=== PATIENT | male | born 1975 | race Caucasian/White ===

== ENCOUNTER 2016-11-10 22:49 | Emergency (ER) | payer OTHER ==
[~2016-11-10 22:49] MED LIST: /QUET10TA PO; AMAN10CA PO; AMOX875T2 PO; Abilify PO; BACT800T5 PO; BUPRPOW2 SL; CELE10TA PO; CHLO25CA PO; CLIN300C2 PO; DOXY100C PO; FLUO20CA9 PO; FLUO40CA PO; HYDR-4274 PO; HYDRO50TAB PO; KLON2TAB PO; NEUR100C PO; NEUR300C PO; OLAN5TAB PO; PERCOCET PO; PROZ10CA7 PO; PROZ20CA11 PO; QUET1TAB7 PO; QUET1TAB8 PO; QUET5TAB PO; RISP3TAB18 PO; SERO1TAB PO; SERO1TAB2 PO; SERO400T PO; TRAZ100T4 PO; TRAZ300T2 PO; TYLE325T5 PO; VENL75CA PO; VIST50CA PO
[2016-11-10] MEDS ORDERED: NAPROXEN 250 MG TAB As Ordered ONE (23:29)
[2016-11-10] MEDS ORDERED: QUEtiapine FUMARATE 100 MG TAB As Ordered ONE (23:30)
--- NOTE | 2016-11-10 23:38 | EDDOCDS ---
Physician Documentation [facility] Name: Akbar Singh Age: 40 yrs Sex: Male : 1975 Arrival Date: 11/10/2016 Time: 22:49 Bed 30 Private MD: [facility] - Adults Disposition: 11/10/16 23:28 Discharged to Home/Self Care. Impression: Patient's other noncompliance with medication regimen, Disorder of the skin and subcutaneous tissue, unspecified - scratching and picking. - Condition is Stable. - Discharge Instructions: Skin Tear Care, [id number]. - Prescriptions for Seroquel XR 400 mg Oral tablet extended release 24 hr - take 1 tablet by ORAL route once daily; 10 tablet. Naprosyn 500 mg Oral Tablet - take 1 tablet by ORAL route 2 times per day take with food; 30 tablet. - Medication Reconciliation, Local Pharmacy Hours form. - Follow up: [facility] - Adults; When: Call to arrange an appointment; Reason: Continuance of care. - Problem is an ongoing problem. - Symptoms are unchanged. Historical: - Allergies: Haldol (locked jaw); Nortriptyline (locked jaw); - Home Meds: 1. Seroquel 400 mg Oral tab 1 tab once daily hasn't taken in a few days - PMHx: Depression; Hepatitis C; Substance Abuse; - PSHx: none; - Social history: Smoking status: Patient uses tobacco products, current every day smoker. No barriers to communication noted, The patient speaks fluent Malian. - Family history: Not pertinent. - : The pt / caregiver states he / she is not on anticoagulants. Home medication list is obtained from the patient, Unable to Verify Home Med List with the patient / caregiver. - Exposure Risk Screening:: None identified. Vital Signs: 11/10 22:54 BP 134 / 82; Pulse 104; Resp 18 S; Temp 96.6(O); Pulse Ox 96% on R/A; Weight 72.57 kg / gr2 159.99 lbs (R); Height 5 ft. 7 in. (170.18 cm) (R); Pain 2/10; 22:54 Body Mass Index 25.06 (72.57 kg, 170.18 cm) gr2 MDM: 23:21 SEROquel 400 mg PO once ordered. ke 23:21 Naproxen 500 mg PO once; administer with food or milk ordered. ke Administered Medications: 23:35 Drug: SEROquel 400 mg Route: PO; deejay 23:35 Drug: Naproxen 500 mg [naproxen 250 mg tablet (2 tabs)] Route: PO; deejay Signatures: Jarrett Krueger, REAL ESTATE OFFICER REAL ESTATE OFFICER Yong Lewis RN RN Milvia Higgins RN RN ms18 MTDD
--- NOTE | 2016-11-10 23:38 | EDDOCDS ---
Nurse's Notes [facility] Name: Akbar Singh Age: 40 yrs Sex: Male : 1975 Arrival Date: 11/10/2016 Time: 22:49 Bed 30 Private MD: [facility] - Adults Diagnosis: Patient's other noncompliance with medication regimen;Disorder of the skin and subcutaneous tissue, unspecified-scratching and picking Presentation: 11/10 23:02 Presenting complaint: Patient states: that he has "things" all over himself, pt states ms18 that it is infection. Pt states that he is out of his psych meds as well. Adult Sepsis Screening: The patient does not have new or worsening altered mentation. Patient's respiratory rate is less than 22. Systolic blood pressure is greater than 100. Patient has a qSOFA score of 0- Negative Sepsis Screen. Suicide/Homicide risk assessment- the patient denies having any suicidal and/or homicidal ideations and does not present with any other emotional, behavioral or mental health complaints. Status: Patient is not a financial services representative or dependent. Transition of care: patient was not received from another setting of care. 23:02 Method Of Arrival: Walkin/Carried/Asstd ms18 23:07 Acuity: CHACHO Level 3 ms18 Triage Assessment: 23:04 General: Appears in no apparent distress, uncomfortable, unkempt, Behavior is ms18 cooperative, flat. Pain: Location: head, back and neck Pain currently is 10 out of 10 on a pain scale. HIV screening NA for this visit Offered previously. Neurological: Level of Consciousness is awake, alert, obeys commands. Respiratory: Airway is patent Respiratory effort is even, unlabored. Derm: Skin is pink, warm & dry. Historical: - Allergies: Haldol (locked jaw); Nortriptyline (locked jaw); - Home Meds: 1. Seroquel 400 mg Oral tab 1 tab once daily hasn't taken in a few days - PMHx: Depression; Hepatitis C; Substance Abuse; - PSHx: none; - Social history: Smoking status: Patient uses tobacco products, current every day smoker. No barriers to communication noted, The patient speaks fluent Swedish. - Family history: Not pertinent. - : The pt / caregiver states he / she is not on anticoagulants. Home medication list is obtained from the patient, Unable to Verify Home Med List with the patient / caregiver. - Exposure Risk Screening:: None identified. Screenin:35 Screening information is obtained from the patient. Fall risk: No risks identified. jmb Assistance ADL's: requires no assistance with activities of daily living. Abuse/DV Screen: The patient / caregiver reports he/she is: not in a situation that causes fear, pain or injury. Nutritional screening: No deficits noted. Advance Directives: Currently, there is no health care proxy. There is no active DNR order. There is no living will. There is no Power of Record Changer Tester. home support is adequate. Assessment: 23:35 General: Patient instructed on discharge instructions. Patient asked if there were any jmb questions regarding discharge, patient stated no.; Patient signed discharge instructions. Patient discharged in stable condition. . Vital Signs: 22:54 BP 134 / 82; Pulse 104; Resp 18 S; Temp 96.6(O); Pulse Ox 96% on R/A; Weight 72.57 kg gr2 (R); Height 5 ft. 7 in. (170.18 cm) (R); Pain 2/10; 22:54 Body Mass Index 25.06 (72.57 kg, 170.18 cm) gr2 Vitals: 22:54 Log In Time: November 10, 2016 at 22:54. gr2 ED Course: 22:53 Patient visited by Klever Sotelo. gr2 22:53 Patient moved to Waiting gr2 22:54 [facility] is Private Physician. gr2 22:55 Patient visited by Klever Sotelo. gr2 22:55 Patient moved to Pre RCE gr2 23:07 Triage Initiated ms18 23:08 Patient moved to 30 ms18 23:14 [facility] ke 23:14 Patient visited by Jarrett Krueger FNP. ke 23:14 Patient visited by Jarrett Krueger FNP. ke 23:27 [facility] is Referral Physician. ke 23:35 The patient / caregiver is instructed regarding the plan of care and ED course. jmb 23:35 No IV's were initiated during this patient's visit. No procedures done that require jmb assistance. Administered Medications: 23:35 Drug: SEROquel 400 mg Route: PO; deejay 23:35 Drug: Naproxen 500 mg [naproxen 250 mg tablet (2 tabs)] Route: PO; deejay Order Results: There are currently no results for this order. Outcome: 23:28 Discharge ordered by Provider. therese 23:35 Discharge Assessment: Patient awake, alert and oriented x 3. No cognitive and/or jmb functional deficits noted. Patient verbalized understanding of disposition instructions. Patient awake and alert. obeys commands, Oriented to person, place and time. Patient verbalized understanding of disposition instructions. Patient has no functional deficits. patient administered narcotics - no. The following High Risk Discharge criteria are identified: None. Discharged to home ambulatory. Condition: stable. Discharge instructions given to patient, Instructed on discharge instructions, follow up and referral plans. medication usage, Demonstrated understanding of instructions, medications, Pt was receptive of discharge instructions/ teaching. Prescriptions given X 2. No special radiology studies were completed. Property sent home with patient. 23:36 Patient left the ED. deejay Signatures: Jarrett Krueger, Klever Rider gr2 Yong Ruiz,RN RN Milvia Higgins RN RN ms18 JAI
--- NOTE | 2016-11-13 00:38 | EDDOCDS ---
Physician Documentation [facility] Name: Akbar Singh Age: 40 yrs Sex: Male : 1975 Arrival Date: 11/10/2016 Time: 22:49 Bed 30 Private MD: [facility] - Adults Disposition: 11/10/16 23:28 Discharged to Home/Self Care. Impression: Patient's other noncompliance with medication regimen, Disorder of the skin and subcutaneous tissue, unspecified - scratching and picking. - Condition is Stable. - Discharge Instructions: Skin Tear Care, [id number]. - Prescriptions for Seroquel XR 400 mg Oral tablet extended release 24 hr - take 1 tablet by ORAL route once daily; 10 tablet. Naprosyn 500 mg Oral Tablet - take 1 tablet by ORAL route 2 times per day take with food; 30 tablet. - Medication Reconciliation, Local Pharmacy Hours form. - Follow up: [facility] - Adults; When: Call to arrange an appointment; Reason: Continuance of care. - Problem is an ongoing problem. - Symptoms are unchanged. Historical: - Allergies: Haldol (locked jaw); Nortriptyline (locked jaw); - Home Meds: 1. Seroquel 400 mg Oral tab 1 tab once daily hasn't taken in a few days - PMHx: Depression; Hepatitis C; Substance Abuse; - PSHx: none; - Social history: Smoking status: Patient uses tobacco products, current every day smoker. No barriers to communication noted, The patient speaks fluent Yemeni. - Family history: Not pertinent. - : The pt / caregiver states he / she is not on anticoagulants. Home medication list is obtained from the patient, Unable to Verify Home Med List with the patient / caregiver. - Exposure Risk Screening:: None identified. Vital Signs: 11/10 22:54 BP 134 / 82; Pulse 104; Resp 18 S; Temp 96.6(O); Pulse Ox 96% on R/A; Weight 72.57 kg / gr2 159.99 lbs (R); Height 5 ft. 7 in. (170.18 cm) (R); Pain 2/10; 22:54 Body Mass Index 25.06 (72.57 kg, 170.18 cm) gr2 MDM: 23:21 SEROquel 400 mg PO once ordered. ke 23:21 Naproxen 500 mg PO once; administer with food or milk ordered. ke 11/11 13:25 T-Sheet-- Draft Copy was scanned into [employer] and attached to record. gb Administered Medications: 11/10 23:35 Drug: SEROquel 400 mg Route: PO; deejay 23:35 Drug: Naproxen 500 mg [naproxen 250 mg tablet (2 tabs)] Route: PO; deejay Signatures: Zara Denton, Reg Reg Jarrett Warner, SECOND MATE SECOND MATE Yong LewisRN RN Milvia Higgins RN RN ms18 The chart was reviewed and I authenticate all verbal orders and agree with the evaluation and treatment provided.Attachments: 11/11 13:25 T-Sheet-- Draft Copy gb Chart Complete MTDD
--- NOTE | 2016-11-13 00:38 | EDDOCDS ---
Nurse's Notes [facility] Name: Akbar Singh Age: 40 yrs Sex: Male : 1975 Arrival Date: 11/10/2016 Time: 22:49 Bed 30 Private MD: [facility] - Adults Diagnosis: Patient's other noncompliance with medication regimen;Disorder of the skin and subcutaneous tissue, unspecified-scratching and picking Presentation: 11/10 23:02 Presenting complaint: Patient states: that he has "things" all over himself, pt states ms18 that it is infection. Pt states that he is out of his psych meds as well. Adult Sepsis Screening: The patient does not have new or worsening altered mentation. Patient's respiratory rate is less than 22. Systolic blood pressure is greater than 100. Patient has a qSOFA score of 0- Negative Sepsis Screen. Suicide/Homicide risk assessment- the patient denies having any suicidal and/or homicidal ideations and does not present with any other emotional, behavioral or mental health complaints. Status: Patient is not a career services officer or dependent. Transition of care: patient was not received from another setting of care. 23:02 Method Of Arrival: Walkin/Carried/Asstd ms18 23:07 Acuity: CHACHO Level 3 ms18 Triage Assessment: 23:04 General: Appears in no apparent distress, uncomfortable, unkempt, Behavior is ms18 cooperative, flat. Pain: Location: head, back and neck Pain currently is 10 out of 10 on a pain scale. HIV screening NA for this visit Offered previously. Neurological: Level of Consciousness is awake, alert, obeys commands. Respiratory: Airway is patent Respiratory effort is even, unlabored. Derm: Skin is pink, warm & dry. Historical: - Allergies: Haldol (locked jaw); Nortriptyline (locked jaw); - Home Meds: 1. Seroquel 400 mg Oral tab 1 tab once daily hasn't taken in a few days - PMHx: Depression; Hepatitis C; Substance Abuse; - PSHx: none; - Social history: Smoking status: Patient uses tobacco products, current every day smoker. No barriers to communication noted, The patient speaks fluent Faroese. - Family history: Not pertinent. - : The pt / caregiver states he / she is not on anticoagulants. Home medication list is obtained from the patient, Unable to Verify Home Med List with the patient / caregiver. - Exposure Risk Screening:: None identified. Screenin:35 Screening information is obtained from the patient. Fall risk: No risks identified. jmb Assistance ADL's: requires no assistance with activities of daily living. Abuse/DV Screen: The patient / caregiver reports he/she is: not in a situation that causes fear, pain or injury. Nutritional screening: No deficits noted. Advance Directives: Currently, there is no health care proxy. There is no active DNR order. There is no living will. There is no Power of Soft Metals Engraver Hand. home support is adequate. Assessment: 23:35 General: Patient instructed on discharge instructions. Patient asked if there were any jmb questions regarding discharge, patient stated no.; Patient signed discharge instructions. Patient discharged in stable condition. . Vital Signs: 22:54 BP 134 / 82; Pulse 104; Resp 18 S; Temp 96.6(O); Pulse Ox 96% on R/A; Weight 72.57 kg gr2 (R); Height 5 ft. 7 in. (170.18 cm) (R); Pain 2/10; 22:54 Body Mass Index 25.06 (72.57 kg, 170.18 cm) gr2 Vitals: 22:54 Log In Time: November 10, 2016 at 22:54. gr2 ED Course: 22:53 Patient visited by Klever Sotelo. gr2 22:53 Patient moved to Waiting gr2 22:54 [facility] is Private Physician. gr2 22:55 Patient visited by Klever Sotelo. gr2 22:55 Patient moved to Pre RCE gr2 23:07 Triage Initiated ms18 23:08 Patient moved to 30 ms18 23:14 [facility]. ke 23:14 Patient visited by Jarrett Krueger FNP. ke 23:14 Patient visited by Jarrett Krueger FNP. ke 23:27 [facility] is Referral Physician. ke 23:35 The patient / caregiver is instructed regarding the plan of care and ED course. jmb 23:35 No IV's were initiated during this patient's visit. No procedures done that require jmb assistance. 11/11 13:25 T-Sheet-- Draft Copy was scanned into [employer] and attached to record. gb Administered Medications: 11/10 23:35 Drug: SEROquel 400 mg Route: PO; deejay 23:35 Drug: Naproxen 500 mg [naproxen 250 mg tablet (2 tabs)] Route: PO; deejay Order Results: There are currently no results for this order. Outcome: 23:28 Discharge ordered by Provider. therese 23:35 Discharge Assessment: Patient awake, alert and oriented x 3. No cognitive and/or jmb functional deficits noted. Patient verbalized understanding of disposition instructions. Patient awake and alert. obeys commands, Oriented to person, place and time. Patient verbalized understanding of disposition instructions. Patient has no functional deficits. patient administered narcotics - no. The following High Risk Discharge criteria are identified: None. Discharged to home ambulatory. Condition: stable. Discharge instructions given to patient, Instructed on discharge instructions, follow up and referral plans. medication usage, Demonstrated understanding of instructions, medications, Pt was receptive of discharge instructions/ teaching. Prescriptions given X 2. No special radiology studies were completed. Property sent home with patient. 23:36 Patient left the ED. deejay Signatures: Zara Denton, Reg Reg Jarrett Warner, SHACTOR Klever Perry gr2 Yong Ruiz,RN RN Milvia Higgins,RN RN ms18 Chart Complete MTDD
--- NOTE | 2016-11-13 00:38 | EDDOCDS ---
Physician Documentation [facility] Name: Akbar Singh Age: 40 yrs Sex: Male : 1975 Arrival Date: 11/10/2016 Time: 22:49 Bed 30 Private MD: [facility] - Adults Disposition: 11/10/16 23:28 Discharged to Home/Self Care. Impression: Patient's other noncompliance with medication regimen, Disorder of the skin and subcutaneous tissue, unspecified - scratching and picking. - Condition is Stable. - Discharge Instructions: Skin Tear Care, [id number]. - Prescriptions for Seroquel XR 400 mg Oral tablet extended release 24 hr - take 1 tablet by ORAL route once daily; 10 tablet. Naprosyn 500 mg Oral Tablet - take 1 tablet by ORAL route 2 times per day take with food; 30 tablet. - Medication Reconciliation, Local Pharmacy Hours form. - Follow up: [facility] - Adults; When: Call to arrange an appointment; Reason: Continuance of care. - Problem is an ongoing problem. - Symptoms are unchanged. Historical: - Allergies: Haldol (locked jaw); Nortriptyline (locked jaw); - Home Meds: 1. Seroquel 400 mg Oral tab 1 tab once daily hasn't taken in a few days - PMHx: Depression; Hepatitis C; Substance Abuse; - PSHx: none; - Social history: Smoking status: Patient uses tobacco products, current every day smoker. No barriers to communication noted, The patient speaks fluent Tongan. - Family history: Not pertinent. - : The pt / caregiver states he / she is not on anticoagulants. Home medication list is obtained from the patient, Unable to Verify Home Med List with the patient / caregiver. - Exposure Risk Screening:: None identified. Vital Signs: 11/10 22:54 BP 134 / 82; Pulse 104; Resp 18 S; Temp 96.6(O); Pulse Ox 96% on R/A; Weight 72.57 kg / gr2 159.99 lbs (R); Height 5 ft. 7 in. (170.18 cm) (R); Pain 2/10; 22:54 Body Mass Index 25.06 (72.57 kg, 170.18 cm) gr2 MDM: 23:21 SEROquel 400 mg PO once ordered. ke 23:21 Naproxen 500 mg PO once; administer with food or milk ordered. ke 11/11 13:25 T-Sheet-- Draft Copy was scanned into [employer] and attached to record. gb Administered Medications: 11/10 23:35 Drug: SEROquel 400 mg Route: PO; deejay 23:35 Drug: Naproxen 500 mg [naproxen 250 mg tablet (2 tabs)] Route: PO; deejay Signatures: Zara Denton, Reg Reg Jarrett Warner, EXERCISE SCIENTIST EXERCISE SCIENTIST Yong LewisRN RN Milvia Higgins RN RN ms18 The chart was reviewed and I authenticate all verbal orders and agree with the evaluation and treatment provided.Attachments: 11/11 13:25 T-Sheet-- Draft Copy gb Chart Complete MTDD
== END 2016-11-10 23:36 | disposition home or self-care (01) ==
LOC: M ED 22:49
DX: L98.9 Disorder of the skin and subcutaneous tissue, unspecified (principal); Z76.0 Encounter for issue of repeat prescription; F32.9 Major depressive disorder, single episode, unspecified; Z86.19 Personal history of other infectious and parasitic diseases; F19.10 Other psychoactive substance abuse, uncomplicated; Z72.0 Tobacco use; Z79.899 Other long term (current) drug therapy; Z88.8 Allergy status to other drugs, medicaments and biological substances

== ENCOUNTER 2019-07-09 17:13 | Inpatient (IN) | payer MEDICAID, OTHER, SELFPAY ==
[~2019-07-09] VITALS: Ht 152.4 cm; Wt 67.8 kg
[~2019-07-09 17:13] MED LIST changes: -/QUET10TA PO; +AMAN100C20 PO; -AMAN10CA PO; +FLUO20CA19 PO; -FLUO20CA9 PO; -HYDR-4274 PO; +HYDR1TAB33 PO; +HYDR50TA70 PO; -HYDRO50TAB PO; +OXYC1TAB23 PO; -PERCOCET PO; -RISP3TAB18 PO; +RISP3TAB20 PO; +TRAZ-163 PO; -TRAZ100T4 PO; -VENL75CA PO; +VENL75CA2 PO
[2019-07-09] MEDS ORDERED: diphenhydrAMINE INJ 50MG/ML VIAL (J1200) IM ONE ×2 (17:45→20:15)
[2019-07-09] MEDS ORDERED: OLANZapine INTRAMUSCULAR 10 MG VIAL (S0166) IM ONE (17:45)
[2019-07-09] MEDS ORDERED: LORazepam 2 MG/ML VIAL (J2060) IM ONE (18:00)
[2019-07-09 19:17] LABS: ACETAMINOPHEN LEVEL < 2.0 UG/ML (10.0-30.0); ALBUMIN 3.9 GM/DL (3.2-5.2); ALT/SGPT 33 U/L (12-78); BILIRUBIN,DIRECT 0.3 MG/DL (0.0-0.2); BILIRUBIN,TOTAL 0.8 MG/DL (0.2-1.0); BLOOD UREA NITROGEN 4 MG/DL (7-18); CALCIUM LEVEL 9.2 MG/DL (8.5-10.1); CARBON DIOXIDE LEVEL 28 MEQ/L (21-32); CHLORIDE LEVEL 105 MEQ/L (98-107); CPK CREATINE PHOSPHOKINASE 161 U/L (39-308); CREATININE FOR GFR 0.69 MG/DL (0.70-1.30); ETHYL ALCOHOL (ETHANOL) < 0.003 % (0.000-0.010); GLOMERULAR FILTRATION RATE > 60.0 (>60); GLUCOSE, FASTING 87 MG/DL (70-100); POTASSIUM SERUM 3.3 MEQ/L (3.5-5.1); SALICYLATE LEVEL 4.3 MG/DL (5.0-30.0); SODIUM LEVEL 139 MEQ/L (136-145); TOTAL PROTEIN 7.4 GM/DL (6.4-8.2)
[2019-07-09 19:17] LABS: AMPHETAMINES LEVEL URINE NEGATIVE (NEGATIVE); BARBITURATES URINE NEGATIVE (NEGATIVE); BENZODIAZEPINES URINE NEGATIVE (NEGATIVE); CANNABINOIDS URINE POSITIVE (NEGATIVE); COCAINE METABOLITE URINE NEGATIVE (NEGATIVE); METHADONE URINE NEGATIVE (NEGATIVE); OPIATES URINE NEGATIVE (NEGATIVE); PHENCYCLIDINE URINE NEGATIVE (NEGATIVE)
[2019-07-09 19:19] LABS: HEMATOCRIT 53.9 % (42.0-52.0); HEMOGLOBIN 18.7 g/dl (13.5-17.5); MEAN CORPUSCULAR HEMOGLOBIN 31.8 pg (27.0-33.0); MEAN CORPUSCULAR HGB CONC 34.7 g/dl (32.0-36.5); MEAN CORPUSCULAR VOLUME 91.7 fl (80.0-96.0); PLATELET COUNT, AUTOMATED 269 10^3/uL (150-450); RED BLOOD COUNT 5.88 10^6/uL (4.30-6.10); WHITE BLOOD COUNT 8.1 10^3/uL (4.0-10.0)
[2019-07-09] MEDS ORDERED: chlorproMAZINE 25 MG TAB (Q0161) PO ONE (21:00)
[2019-07-09] MEDS ORDERED: chlorproMAZINE INJ 50MG/2ML AMP (J3230) IM STA ×2 (21:59→23:20)
[2019-07-09] MEDS ORDERED: QUEtiapine FUMARATE 100 MG TAB PO ONE (22:30)
[2019-07-09] MEDS ORDERED: LORazepam 2 MG TAB PO STA (23:12)
[2019-07-10] MEDS ORDERED: ZIPRASIDONE 20 MG/ML VIAL *GEODON* (J3486) IM ONE (03:45)
[2019-07-10] MEDS ORDERED: zolPIDEM TARTRATE 5 MG TAB PO ONE (04:45)
[2019-07-10] MEDS ORDERED: NICOTINE 21MG/24HR 1 EA TRANSDERMAL TD ONE (08:45)
[2019-07-10] MEDS ORDERED: OLANZapine 10 MG TAB PO ONE (11:15)
[2019-07-10] MEDS ORDERED: LORazepam 2 MG TAB PO STA (16:27)
[2019-07-10] MEDS ORDERED: ACETAMINOPHEN TAB 650MG DOSE (2X325MG) PO PRN (20:00)
[2019-07-10] MEDS ORDERED: MAALOX 30 ML SUSP *UDC PO PRN (20:00)
[2019-07-10] MEDS ORDERED: MOM 30ML SUSPENSION UDC PO PRN (20:00)
[2019-07-10] MEDS ORDERED: diphenhydrAMINE CREAM 30GM TOP PRN (21:45)
[2019-07-10 22:47] VITALS: BP 153/95
[2019-07-10] MEDS ORDERED: QUEtiapine FUMARATE 100 MG TAB PO ONE (23:00)
[2019-07-10 23:51] VITALS: BP 153/95
[2019-07-11] MEDS: traZODone 50 MG TAB PO PRN (02:07)
[2019-07-11] MEDS: diphenhydrAMINE 50 MG CAP PO PRN ×2 (02:07→19:50)
[2019-07-11] MEDS: IBUPROFEN 400 MG TAB PO PRN ×3 (02:40→14:25)
[2019-07-11] MEDS: OLANZapine ORAL DISINTEGRATING TAB 5MG PO PRN ×3 (03:08→18:51)
[2019-07-11 06:14] VITALS: BP 152/75
[2019-07-11 07:40] LABS: ALBUMIN 3.5 GM/DL (3.2-5.2); ALT/SGPT 43 U/L (12-78); BILIRUBIN,TOTAL 1.1 MG/DL (0.2-1.0); BLOOD UREA NITROGEN 13 MG/DL (7-18); CALCIUM LEVEL 8.6 MG/DL (8.5-10.1); CARBON DIOXIDE LEVEL 28 MEQ/L (21-32); CHLORIDE LEVEL 103 MEQ/L (98-107); CREATININE FOR GFR 0.87 MG/DL (0.70-1.30); GLOMERULAR FILTRATION RATE > 60.0 (>60); GLUCOSE, FASTING 171 MG/DL (70-100); POTASSIUM SERUM 3.2 MEQ/L (3.5-5.1); SODIUM LEVEL 138 MEQ/L (136-145); TOTAL PROTEIN 7.4 GM/DL (6.4-8.2)
[2019-07-11] MEDS: LORazepam 1 MG TAB PO PRN ×3 (08:20→19:51)
[2019-07-11] MEDS: NICOTINE 21MG/24HR 1 EA TRANSDERMAL TD PRN (08:24)
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
[2019-07-11 12:34] VITALS: BP 140/96
--- NOTE | 2019-07-11 12:55 | HPEPDOC ---
[facility] Medical History & Physical Date of Admission Jul 11, 2019 Date of Service: Jul 11, 2019 History and Physical CONSULT FOR: Psychiatry Medical H&P HISTORY OF PRESENT ILLNESS: This is a 43-year-old man who is brought in by family friends with the belief that his skin was on fire and worms coming out of his skin. He admitted to depression and suicidal ideation in the emergency room. Most recent inpatient hospitalization was in 2016. At the time of my exam today he complains of burning skin and requests that this cannot be touched. He tells me that he feels worms piercing through the skin. Otherwise patient denies weight loss, hair loss, headache, visual changes, chest pain, shortness of breath, cough, nausea, vomiting, diarrhea, abdominal pain, muscle aches, worsening arthritis, change in mood PAST MEDICAL HISTORY: 1. Questionable hepatitis C he was told in outpatient follow-up after his last hospitalization he did not have it. 2. Depression. 3. And polysubstance abuse with a history apparently THC currently only THC. HOME MEDICATIONS: Please see below. ALLERGIES: Please see below PAST SURGICAL HISTORY: 1. No surgical history. SOCIAL HISTORY: Lives with: Alone, Employment: Not working, Tobacco use: 50 pack years ETOH: To occult respiratory day, Illicit drug use: THC denies any other use, CODE STATUS: Full code FAMILY HISTORY:Reviewed and noncontributory REVIEW OF SYSTEMS: 10 systems reviewed and negative other than HPI PHYSICAL EXAMINATION: VITAL SIGNS: Please see below GENERAL: Pleasant disheveled malodorous middle-age man sitting up in bed awake alert oriented speaking in complete sentences no acute distress, numerous excoriations throughout HEENT: Moist mucous membranes no elevation in CVP CARDIOVASCULAR: S1 S2 regular no additional heart sounds appreciated. RESPIRATORY: Clear to auscultation bilaterally. ABDOMINAL: Bowel sounds present abdomen soft and nontender EXTREMITIES: No clubbing cyanosis or edema, numerous tattoos NEUROLOGICAL: Spontaneously moves all 4 extremities cranial 2 through 12 grossly intact no gross focal deficits appreciated PSYCHOLOGICAL: Appropriate LABORATORY DATA: See below. MICROBIOLOGY: Please see below. IMAGING: None ASSESSMENT & PLAN: This is a 43-year-old male with questionable history of hepatitis C admitted now for depression. PROBLEMS: 1. Depression question paranoid delusions: History of schizophrenia defer management to psychiatry. 2. Questionable history of hepatitis C: He was reportedly told that he had in the past been on the outpatient setting: He did not have it. I will check a hepatitis C RNA to evaluate for any disease presents. He certainly does have some mild elevation in his AST and could pass actually be related to alcohol abuse with monitor for withdrawal symptoms given his questionable history of history of polysubstance abuse. We'll check an INR to evaluate his hepatic synthetic function 3. THC use: Cystic counseling provided 4. Polycythemia: Possible secondary to active tobacco abuse we'll recheck a CBC and monitor 5. Hypokalemia: We'll monitor with a recheck tomorrow as well as a magnesium level. DVT PROPHYLAXIS:Ambulating Thank you for this interesting consult, we will continue to follow along with you. Please Vocera secure text or call with any specific questions. Vital Signs Vital Signs Date Time Temp Pulse Resp B/P (MAP) Pulse Ox O2 Delivery O2 Flow Rate FiO2 07/11/19 08:12 Room Air 07/11/19 06:14 98.4 104 16 152/75 (100) 07/10/19 23:51 98 Laboratory Data Labs 24H Laboratory Tests 2 07/11/19 07:02: Anion Gap 7L, Glomerular Filtration Rate > 60.0, Calcium Level 8.6, Total Bilirubin 1.1H, Aspartate Amino Transf (AST/SGOT) 94H, Alanine Aminotransferase (ALT/SGPT) 43, Alkaline Phosphatase 91, Total Protein 7.4, Albumin 3.5, Albumin/Globulin Ratio 0.90L CBC/BMP Laboratory Tests 07/11/19 07:02 Home Medications Unable to Obtain Active Prescriptions or Reported Meds Allergies Coded Allergies: nortriptyline (Verified Allergy, Unknown, 07/09/19) haloperidol (Verified Adverse Reaction, Intermediate, EPS/ LOCKJAW, 07/09/19) A-FIB/CHADSVASC A-FIB History Current/History of A-Fib/PAF?: No ROSA DAUGHERTY MD Jul 11, 2019 12:55
[2019-07-11 13:48] LABS: HEMATOCRIT 47.2 % (42.0-52.0); HEMOGLOBIN 15.9 g/dl (13.5-17.5); MEAN CORPUSCULAR HEMOGLOBIN 30.9 pg (27.0-33.0); MEAN CORPUSCULAR HGB CONC 33.7 g/dl (32.0-36.5); MEAN CORPUSCULAR VOLUME 91.8 fl (80.0-96.0); PLATELET COUNT, AUTOMATED 222 10^3/uL (150-450); RED BLOOD COUNT 5.14 10^6/uL (4.30-6.10)
[2019-07-11 13:59] LABS: INR 0.98; PROTHROMBIN TIME 12.7 SECONDS (11.8-14.0)
[2019-07-11] MEDS: VANICREAM MOISTURIZING SKIN CREAM 113GM TUBE TOP SCH ×2 (14:26→19:51)
[2019-07-11] MEDS: GABAPENTIN 100 MG CAP PO SCH ×2 (15:49→19:51)
[2019-07-11 16:07] VITALS: BP 136/92
[2019-07-11 20:00] VITALS: BP 144/88
[2019-07-11] MEDS ORDERED: QUEtiapine FUMARATE 100 MG TAB PO SCH (21:00)
[2019-07-11] MEDS ORDERED: QUEtiapine FUMARATE 50 MG TAB PO SCH (21:00)
[2019-07-11] MEDS ORDERED: chlorproMAZINE 25 MG TAB (Q0161) PO ONE (22:00)
[2019-07-12] MEDS: traZODone 50 MG TAB PO PRN ×2 (00:48→20:24)
[2019-07-12] MEDS: OLANZapine ORAL DISINTEGRATING TAB 5MG PO PRN ×2 (02:42→12:59)
[2019-07-12] MEDS: IBUPROFEN 400 MG TAB PO PRN ×2 (02:42→14:22)
[2019-07-12] MEDS: diphenhydrAMINE 50 MG CAP PO PRN ×2 (02:42→22:17)
[2019-07-12 05:54] VITALS: BP 136/88
[2019-07-12] MEDS ORDERED: chlorproMAZINE 25 MG TAB (Q0161) PO ONE (06:30)
[2019-07-12] MEDS: NICOTINE 21MG/24HR 1 EA TRANSDERMAL TD PRN (07:43)
[2019-07-12] MEDS: VANICREAM MOISTURIZING SKIN CREAM 113GM TUBE TOP SCH ×2 (09:00→20:23)
[2019-07-12] MEDS: GABAPENTIN 100 MG CAP PO SCH ×3 (09:23→21:35)
--- NOTE | 2019-07-12 11:44 | MHIPNPDOC ---
[facility] Progress Note Progress Note Akbar Singh Inpatient Progress Note Akbar Singh Select Gender MRN: N/A Date of : MM/DD/YYYY Date of Service: 07/12/2019 History of Present Illness The patient a 43-year-old man with a long history of schizophrenia and substance abuse presents to [facility], distorted with extremely poor hygiene and inability to care for himself. In the ER, he was noted to be fairly psychotic and distorted. When he was admitted to the inpatient unit, he was noted to have extremely poor hygiene and difficulty attending to his needs. He continues to remain paranoid, feeling that others are out to get him. He is not established with any mental health provider and is currently struggling to maintain his basic self-care. On evaluation in the ER, he reportedly was brought in by a friend and stated that he had become increasingly more psychotic as he had been using marijuana where he had been worried that his television was talking to him and that he had suicidal thought where he would throw the television out the window. Interval History The patient was met with today. He still remains paranoid. Throughout the day he has been frightened to go on the new side of the unit reporting that he feels that the water's poisoned. He required water from the break room as he reported that he only wanted to drink water that we drunk as he felt that other water was poisoned. He still remains highly paranoid and unable to attend to his needs. His rash per Internal Medicine is chronic and had been seen by Dermatology in September. They recommend continued gabapentin and the aforementioned dermatological cream. The patient continues to report chronic pain from his rash as well as significant nightmares, low mood, suicidal thoughts and significant paranoia wondering if others are out to get him. He is fairly labile and tearful in the interview. Review Of Systems General: Denies fever or weight change Cardiovascular: Denies Chest pain or palpations GI: Denies Nausea, vomiting, or bowel changes Respiratory: Denies shortness of breath or cough Neuro: Denies dizziness, tremors Derm: as above MSK: Denies any muscle tightness or stiffness HEENT: Denies any vision changes or headaches Endo: denies any cold/heat intolerance or water intake changes Psychotherapy None on this visit. Vital Signs Reviewed. Mental Status Examination General: Extremely poor hygiene. Speech: Fairly spontaneous. Thought processes: Circumstantial but redirectable. MSK: Smooth and coordinated gait, no signs of tremors or involuntary orofacial movements Thought content: Bizarre and paranoid. Abstract reasoning, and computation: Impaired. Description of associations: Impaired. Description of abnormal or psychotic thoughts: Admits passive SI. Denies any homicidal ideation. Denies any current auditory or visual hallucinations. Judgment: Poor. Insight: Poor. Orientation: Alert and orientated 3 Cognition: Grossly normal Recent and remote memory: Intact Attention span and concentration: Mildly impaired due to the thought process. Fund of knowledge: Adequate Mood: "bad" Affect: Labile with a restricted range. Diagnoses Schizophrenia. PTSD, chronic. Cannabis use disorder, severe. Tobacco use disorder, severe. Alcohol use disorder, unspecified. Opioid use disorder, in remission of unspecified degree. 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 Assessment and Plan Schizophrenia/PTSD: Discontinue Seroquel, increase gabapentin to 200 mg TID, start Invega 3 mg nightly, discussed risks, benefits, and potential side effects as well as alternative options with patient. Will order herpes panel in case shingles. Substance use disorders: Will double nicotine patches. Patient is a heavy smoker, no need for CIWA at this time. Opioid and hallucinogen and cocaine use disorder that appears to be in remission. Will recommend follow up as an outpatient. Disposition Patient will need further inpatient admission in order to treat his extreme self-neglect and extreme paranoid ideation. Time Spent 15 minutes [id number]. Vital Signs Vital Signs Date Time Temp Pulse Resp B/P (MAP) Pulse Ox O2 Delivery O2 Flow Rate FiO2 07/12/19 08:43 Room Air 07/12/19 05:54 97.3 97 18 136/88 (104) 07/10/19 23:51 98 Laboratory Data 24H Labs Laboratory Tests 2 07/11/19 13:28: Nucleated Red Blood Cells % (auto) 0.0, Prothrombin Time 12.7, Prothromb Time International Ratio 0.98, Magnesium Level 2.4 CBC/BMP Laboratory Tests 07/11/19 13:28 Current Medications Current Medications Medications (Trade) Dose Ordered Sig/Casimiro Route PRN Reason Start Time Stop Time Status Last Admin Dose Admin Acetaminophen (Tylenol Tab) 650 mg Q6HP PRN PO HEADACHE or DISCOMFORT 07/10/19 20:00 07/11/19 02:31 DC 07/10/19 21:41 Al Hydrox/Mg Hydrox/Simethicone (Mylanta) 30 ml Q4HP PRN PO HEARTBURN/INDIGESTION 07/10/19 20:00 Chlorpromazine HCl (Thorazine) 25 mg STAT STAT IM 07/09/19 21:59 07/09/19 22:04 DC 07/09/19 22:18 Chlorpromazine HCl (Thorazine) 50 mg STAT STAT IM 07/09/19 23:20 07/09/19 23:21 DC 07/10/19 00:06 Diphenhydramine HCl (Benadryl Cream) APPLY TO AFFECTED AREA TIDP PRN TOP ITCHING 07/10/19 21:45 07/11/19 01:10 Diphenhydramine HCl (Benadryl) 50 mg Q6HP PRN PO ITCHING 07/10/19 21:45 07/12/19 02:42 Emollient Cream (Vanicream) 1 dose BID TOP 07/11/19 09:00 07/11/19 19:51 Gabapentin (Neurontin) 100 mg TID PO 07/11/19 16:00 07/12/19 09:23 Home Med (Med Rec Complete!) ASDIRECTED XX 07/10/19 09:15 07/10/19 09:10 DC Ibuprofen (Advil) 400 mg Q6HP PRN PO PAIN 07/11/19 02:30 07/12/19 02:42 Lorazepam (Ativan) 1 mg Q4HP PRN PO ANXIETY 07/11/19 07:00 07/11/19 19:51 Lorazepam (Ativan) 2 mg STAT STAT PO 07/09/19 23:12 07/09/19 23:13 DC 07/09/19 23:41 Lorazepam (Ativan) 2 mg STAT STAT PO 07/10/19 16:27 07/10/19 16:29 DC 07/10/19 16:37 Magnesium Hydroxide (Milk Of Magnesia) 30 ml DAILYPRN PRN PO CONSTIPATION 07/10/19 20:00 Nicotine (Nicoderm Cq 21mg) 1 patch DAILY PRN TD NICOTINE WITHDRAWL 07/10/19 20:00 07/12/19 07:43 Olanzapine (ZyPREXA ZYDIS) 5 mg Q4HP PRN PO AGITATION 07/10/19 20:00 07/12/19 02:42 Quetiapine Fumarate (SEROquel) 100 mg QHS PO 07/11/19 21:00 07/11/19 14:44 DC Quetiapine Fumarate (SEROquel) 150 mg QHS PO 07/11/19 21:00 07/11/19 19:50 Trazodone HCl (Desyrel) 50 mg QHSP PRN PO INSOMNIA 07/10/19 20:00 07/12/19 00:48 Allergies Coded Allergies: chlorpromazine (Unverified Allergy, Severe, Lockjaw, 07/12/19) Information provided by mother who cares for him. haloperidol (Verified Allergy, Intermediate, EPS/ LOCKJAW, 07/12/19) nortriptyline (Verified Allergy, Unknown, 07/09/19) JENNIFER GUIDRY DO Jul 12, 2019 11:44
[2019-07-12 12:00] VITALS: BP 135/85
[2019-07-12] MEDS: LORazepam 1 MG TAB PO PRN (14:18)
[2019-07-12 17:45] VITALS: BP 163/99
[2019-07-12 17:55] VITALS: BP 161/88
[2019-07-12] MEDS ORDERED: GABAPENTIN 100 MG CAP PO ONE (19:30)
[2019-07-12] MEDS ORDERED: PALIPERIDONE 3 MG ER TAB (INVEGA) PO SCH (21:00)
[2019-07-13] MEDS: IBUPROFEN 400 MG TAB PO PRN ×2 (05:00→13:51)
[2019-07-13 06:35] VITALS: BP 151/81
[2019-07-13] MEDS: NICOTINE 21MG/24HR 1 EA TRANSDERMAL TD PRN (06:49)
[2019-07-13] MEDS: LORazepam 1 MG TAB PO PRN ×3 (07:30→16:11)
[2019-07-13] MEDS: GABAPENTIN 100 MG CAP PO SCH ×3 (08:09→20:07)
[2019-07-13] MEDS: VANICREAM MOISTURIZING SKIN CREAM 113GM TUBE TOP SCH ×2 (08:09→20:07)
[2019-07-13] MEDS: OLANZapine ORAL DISINTEGRATING TAB 5MG PO PRN ×2 (09:28→13:50)
--- NOTE | 2019-07-13 09:52 | MHIPNPDOC ---
[facility] Progress Note Progress Note Akbar Singh Inpatient Progress Note Akbar Singh Select Gender MRN: N/A Date of : MM/DD/YYYY Date of Service: 07/13/2019 History of Present Illness The patient a 43-year-old man with a long history of schizophrenia and substance abuse presents to [facility], distorted with extremely poor hygiene and inability to care for himself. In the ER, he was noted to be fairly psychotic and distorted. When he was admitted to the inpatient unit, he was noted to have extremely poor hygiene and difficulty attending to his needs. He continues to remain paranoid, feeling that others are out to get him. He is not established with any mental health provider and is currently struggling to maintain his basic self-care. On evaluation in the ER, he reportedly was brought in by a friend and stated that he had become increasingly more psychotic as he had been using marijuana where he had been worried that his television was talking to him and that he had suicidal thought where he would throw the television out the window. Interval History The patient was met with today. He still remains fairly paranoid and feels that people are out to get him. He feels that some of the water is poisoned and is fairly labile in his affect, tearful and having nightmares, although they are improving on the Minipress. The patient reports that skin is improving as he has been utilizing the cream. The herpes test was canceled for unknown reasons, however, the patient's skin appears to be improving. He reports less pain and he reports the gabapentin is somewhat helpful for his pain. His hygiene still is difficult as he will not bathe due to the pain and secondarily due to his delusions that the water is poisoned. He is generally secretive and does not interact in groups. Staff have noticed at times he will get angry and throw a cup of coffee, but he has not had any violent outbursts. Review Of Systems General: Denies fever or weight change Cardiovascular: Denies chest pain or palpitations GI: Denies Nausea, vomiting, or bowel changes Respiratory: Denies shortness of breath or cough Neuro: Denies dizziness, tremors Derm: Reports improved rash, less bleeding MSK: Denies any muscle tightness or stiffness HEENT: Denies any vision changes or headaches Endo: denies any cold/heat intolerance or water intake changes Psychotherapy None on this visit. Vital Signs Reviewed. Mental Status Examination General: Extremely poor hygiene. Speech: Fairly spontaneous. Thought processes: Circumstantial but redirectable. MSK: Smooth and coordinated gait, no signs of tremors or involuntary orofacial movements Thought content: Bizarre and paranoid. Abstract reasoning, and computation: Impaired. Description of associations: Impaired. Description of abnormal or psychotic thoughts: Admits passive SI. Denies any homicidal ideation. Denies any current auditory or visual hallucinations. Judgment: Poor. Insight: Poor. Orientation: Alert and orientated 3 Cognition: Grossly normal Recent and remote memory: Intact Attention span and concentration: Mildly impaired due to the thought process. Fund of knowledge: Adequate Mood: "bad" Affect: Labile with a restricted range. Diagnoses Schizophrenia. PTSD, chronic. Cannabis use disorder, severe. Tobacco use disorder, severe. Alcohol use disorder, unspecified. Opioid use disorder, in remission of unspecified degree. 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 Assessment and Plan Schizophrenia/PTSD: Discontinue Invega as unhelpful. Start Zyprexa 5 mg BID. Dis cussed risks, benefits and potential side effects with patient. Continue gabapentin TID 200 mg. Increase Minipress to 2 mg nightly. Will order herpes panel in case shingles. Substance use disorders: Will double nicotine patches. Patient is a heavy smoker , no need for CIWA at this time. Opioid and hallucinogen and cocaine use disorder that appears to be in remission. Will recommend follow up as an outpatient. Disposition Patient will need further inpatient admission in order to treat his extreme self-neglect and extreme paranoid ideation. Time Spent 15 minutes [id number]. Vital Signs Vital Signs Date Time Temp Pulse Resp B/P (MAP) Pulse Ox O2 Delivery O2 Flow Rate FiO2 07/13/19 06:35 98.4 88 14 151/81 (104) 07/12/19 08:43 Room Air 07/10/19 23:51 98 Current Medications Current Medications Medications (Trade) Dose Ordered Sig/Casimiro Route PRN Reason Start Time Stop Time Status Last Admin Dose Admin Acetaminophen (Tylenol Tab) 650 mg Q6HP PRN PO HEADACHE or DISCOMFORT 07/10/19 20:00 07/11/19 02:31 DC 07/10/19 21:41 Al Hydrox/Mg Hydrox/Simethicone (Mylanta) 30 ml Q4HP PRN PO HEARTBURN/INDIGESTION 07/10/19 20:00 Chlorpromazine HCl (Thorazine) 25 mg STAT STAT IM 07/09/19 21:59 07/09/19 22:04 DC 07/09/19 22:18 Chlorpromazine HCl (Thorazine) 50 mg STAT STAT IM 07/09/19 23:20 07/09/19 23:21 DC 07/10/19 00:06 Diphenhydramine HCl (Benadryl Cream) APPLY TO AFFECTED AREA TIDP PRN TOP ITCHING 07/10/19 21:45 07/11/19 01:10 Diphenhydramine HCl (Benadryl) 50 mg Q6HP PRN PO ITCHING 07/10/19 21:45 07/12/19 22:17 Emollient Cream (Vanicream) 1 dose BID TOP 07/11/19 09:00 07/13/19 08:09 Gabapentin (Neurontin) 100 mg TID PO 07/11/19 16:00 07/12/19 19:23 DC 07/12/19 16:08 Gabapentin (Neurontin) 200 mg TID PO 07/12/19 21:00 07/13/19 08:09 Home Med (Med Rec Complete!) ASDIRECTED XX 07/10/19 09:15 07/10/19 09:10 DC Ibuprofen (Advil) 400 mg Q6HP PRN PO PAIN 07/11/19 02:30 07/13/19 05:00 Lorazepam (Ativan) 1 mg Q4HP PRN PO ANXIETY 07/11/19 07:00 07/13/19 07:30 Lorazepam (Ativan) 2 mg STAT STAT PO 07/09/19 23:12 07/09/19 23:13 DC 07/09/19 23:41 Lorazepam (Ativan) 2 mg STAT STAT PO 07/10/19 16:27 07/10/19 16:29 DC 07/10/19 16:37 Magnesium Hydroxide (Milk Of Magnesia) 30 ml DAILYPRN PRN PO CONSTIPATION 07/10/19 20:00 Nicotine (Nicoderm Cq 21mg) 1 patch DAILY PRN TD NICOTINE WITHDRAWL 07/10/19 20:00 07/13/19 06:49 Olanzapine (ZyPREXA ZYDIS) 5 mg Q4HP PRN PO AGITATION 07/10/19 20:00 07/13/19 09:28 Paliperidone (Invega) 3 mg QHS PO 07/12/19 21:00 07/12/19 20:22 Quetiapine Fumarate (SEROquel) 100 mg QHS PO 07/11/19 21:00 07/11/19 14:44 DC Quetiapine Fumarate (SEROquel) 150 mg QHS PO 07/11/19 21:00 07/12/19 19:33 DC 07/11/19 19:50 Trazodone HCl (Desyrel) 50 mg QHSP PRN PO INSOMNIA 07/10/19 20:00 07/12/19 20:24 Allergies Coded Allergies: chlorpromazine (Unverified Allergy, Severe, Ron, 07/12/19) Information provided by mother who cares for him. haloperidol (Verified Allergy, Intermediate, EPS/ LOCKJAW, 07/12/19) nortriptyline (Verified Allergy, Unknown, 07/09/19) JENNIFER GUIDRY DO Jul 13, 2019 09:52
[2019-07-13 16:41] VITALS: BP 142/90
[2019-07-13 19:25] LABS: HEPATITIS C QUANTITATION 107700 IU/mL (.)
[2019-07-13] MEDS: OLANZapine 5 MG TAB PO SCH (20:07)
[2019-07-13] MEDS: PRAZOSIN 1 MG CAP PO SCH (20:07)
[2019-07-13] MEDS: traZODone 50 MG TAB PO PRN (20:08)
[2019-07-13] MEDS ORDERED: PRAZOSIN 1 MG CAP PO SCH (21:00)
[2019-07-13] MEDS: diphenhydrAMINE 50 MG CAP PO PRN (22:24)
[2019-07-14] MEDS: OLANZapine ORAL DISINTEGRATING TAB 5MG PO PRN ×4 (06:40→21:01)
[2019-07-14] MEDS: IBUPROFEN 400 MG TAB PO PRN ×3 (06:42→22:23)
[2019-07-14] MEDS: NICOTINE 21MG/24HR 1 EA TRANSDERMAL TD PRN (06:45)
[2019-07-14 06:56] VITALS: BP 158/98
[2019-07-14] MEDS: GABAPENTIN 100 MG CAP PO SCH ×3 (08:04→20:15)
[2019-07-14] MEDS: OLANZapine 5 MG TAB PO SCH ×2 (08:04→20:15)
[2019-07-14] MEDS: VANICREAM MOISTURIZING SKIN CREAM 113GM TUBE TOP SCH ×2 (08:04→21:00)
[2019-07-14] MEDS: LORazepam 1 MG TAB PO PRN ×3 (10:13→22:22)
[2019-07-14 16:45] VITALS: BP 160/94
[2019-07-14] MEDS: diphenhydrAMINE 50 MG CAP PO PRN (20:15)
[2019-07-14] MEDS: traZODone 50 MG TAB PO PRN (20:16)
[2019-07-14] MEDS: PRAZOSIN 1 MG CAP PO SCH (20:17)
--- NOTE | 2019-07-14 21:04 | MHIPN ---
DATE: 07/14/2019 VITAL SIGNS: Blood pressure 160/94, pulse 87, temperature 98.6. CHIEF COMPLAINT: Says feels better. SUBJECTIVE: He is seen for followup in the presence of staff. Says feels better and that he has been afraid of taking medicines, thinks they may be poisonous and that on one occasion he had lock jaw, says he was given a shot. He says that this was quite a while back. Says that he has also had trouble with sleep, as he has been concerned about taking medicines, but later suggests that he would be willing to consider a slow increase. MENTAL STATUS EXAMINATION: He is unkempt. He is guarded. He displays no agitation at present. No psychomotor retardation. He is coherent for the most part. Affect is restricted in range. Does not appear internally preoccupied. He is paranoid. Judgment and insight are compromised. ASSESSMENT: 1. Schizophrenia. 2. Posttraumatic stress disorder (PTSD) by history. PLAN: Increase the olanzapine to a total of 12.5 mg a day in divided doses. This is to help address current symptoms and increase the antipsychotic relatively slowly. Continue the rest of the care and observations. Encourage participation with activities in the unit as much as tolerated.
[2019-07-15] MEDS: LORazepam 1 MG TAB PO PRN ×3 (06:33→22:25)
[2019-07-15 06:37] VITALS: BP 142/77
[2019-07-15] MEDS: GABAPENTIN 100 MG CAP PO SCH ×3 (08:11→21:09)
[2019-07-15] MEDS: OLANZapine 2.5MG TABLET PO SCH (08:12)
[2019-07-15] MEDS: VANICREAM MOISTURIZING SKIN CREAM 113GM TUBE TOP SCH ×2 (08:13→21:00)
[2019-07-15] MEDS: IBUPROFEN 400 MG TAB PO PRN (08:14)
[2019-07-15] MEDS: NICOTINE 21MG/24HR 1 EA TRANSDERMAL TD PRN (09:32)
[2019-07-15] MEDS: OLANZapine ORAL DISINTEGRATING TAB 5MG PO PRN ×2 (10:49→15:12)
[2019-07-15] MEDS: diphenhydrAMINE 50 MG CAP PO PRN ×2 (13:56→20:27)
[2019-07-15 16:38] VITALS: BP 145/95
[2019-07-15] MEDS: traZODone 50 MG TAB PO PRN (20:28)
[2019-07-15] MEDS: PRAZOSIN 1 MG CAP PO SCH (20:28)
[2019-07-15] MEDS ORDERED: OLANZapine 5 MG TAB PO SCH (21:00)
[2019-07-16] MEDS: LORazepam 1 MG TAB PO PRN ×2 (06:10→17:02)
[2019-07-16 06:41] VITALS: BP 130/90
[2019-07-16] MEDS: NICOTINE 21MG/24HR 1 EA TRANSDERMAL TD PRN (06:49)
[2019-07-16] MEDS: OLANZapine ORAL DISINTEGRATING TAB 5MG PO PRN ×3 (07:40→19:26)
[2019-07-16] MEDS: OLANZapine 2.5MG TABLET PO SCH (08:27)
[2019-07-16] MEDS: GABAPENTIN 100 MG CAP PO SCH ×3 (08:27→19:56)
[2019-07-16] MEDS: VANICREAM MOISTURIZING SKIN CREAM 113GM TUBE TOP SCH ×2 (08:29→19:58)
--- NOTE | 2019-07-16 09:52 | MHIPNPDOC ---
[facility] Progress Note Progress Note Akbar Singh Inpatient Progress Note Akbar Singh Select Gender MRN: N/A Date of : MM/DD/YYYY Date of Service: 07/16/2019 History of Present Illness The patient a 43-year-old man with a long history of schizophrenia and substance abuse presents to [facility], distorted with extremely poor hygiene and inability to care for himself. In the ER, he was noted to be fairly psychotic and distorted. When he was admitted to the inpatient unit, he was noted to have extremely poor hygiene and difficulty attending to his needs. He continues to remain paranoid, feeling that others are out to get him. He is not established with any mental health provider and is currently struggling to maintain his basic self-care. On evaluation in the ER, he reportedly was brought in by a friend and stated that he had become increasingly more psychotic as he had been using marijuana where he had been worried that his television was talking to him and that he had suicidal thought where he would throw the television out the window. Interval History The patient is met with today he is still somewhat needy and has difficulty with paranoia. Yesterday he had had an episode where he got upset and had yelled that people were talking about him. However, today he reports that he wishes to leave. However, after discussion he reports that he is willing to stay. 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 He reports that he has quite a bit of fear about people around him and still is tearful at times but he has significantly improved in his ability to attend his needs, his agitation, and his ability to question his own thoughts. He has been noted by staff to come up multiple times questioning his paranoia and whether his thou ghts about people being against them are true and has begun to demonstrate much more insight in discussion with staff that have treated with him before. This is a significant departure from his previous presentations as he is presented primarily with depression rather than schizophrenia. It is unclear if he had synthetic marijuana or some other intoxicant that could have caused him to become psychotic as he is. Review Of Systems General: Denies fever or weight change Cardiovascular: Denies Chest pain or palpations GI: Denies Nausea, vomiting, or bowel changes Respiratory: Denies shortness of breath or cough Neuro: Denies dizziness, tremors Derm: Reports improved rash as above MSK: Denies any muscle tightness or stiffness HEENT: Denies any vision changes or headaches Endo: denies any cold/heat intolerance or water intake changes Psychotherapy None on this visit. Vital Signs Reviewed. Mental Status Examination General: Improved hygiene. Speech: Fairly spontaneous. Thought processes: Less circumstantial. MSK: Smooth and coordinated gait, no signs of tremors or involuntary orofacial movements Thought content: Less paranoid, more insight. Abstract reasoning, and computation: Improved. Description of associations: Improved. Description of abnormal or psychotic thoughts: Denies suicidal or homicidal ideation. Reports no auditory or visual hallucinations at this time. Judgment: Improved.. Insight: Improved. Orientation: Alert and orientated 3 Cognition: Grossly normal Recent and remote memory: Intact Attention span and concentration: Improved. Fund of knowledge: Adequate Mood: "thank you so much" Affect: More euthymic with less of a restricted range Diagnoses Schizophrenia. PTSD, chronic. Cannabis use disorder, severe. Tobacco use disorder, severe. Alcohol use disorder, unspecified. Opioid use disorder, in remission of unspecified degree. 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 Assessment and Plan Schizophrenia/PTSD: Increase Zyprexa to 10 mg b.i.d. with 10 mg p.r.n. MDD of 30 mg daily. 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 Substance use disorders: Will double nicotine patches. Patient is a heavy smoker, no need for CIWA at this time. Opioid and hallucinogen and cocaine use disorder that appears to be in remission. Will recommend follow up as an outpatient. Disposition Patient will need further inpatient admission in order to treat his extreme self-neglect and extreme paranoid ideation. Time Spent 50 minutes [id number] Vital Signs Vital Signs Date Time Temp Pulse Resp B/P (MAP) Pulse Ox O2 Delivery O2 Flow Rate FiO2 07/16/19 06:41 97.9 102 18 130/90 (103) 07/14/19 06:56 Room Air 07/10/19 23:51 98 Current Medications Current Medications Medications (Trade) Dose Ordered Sig/Casimiro Route PRN Reason Start Time Stop Time Status Last Admin Dose Admin Acetaminophen (Tylenol Tab) 650 mg Q6HP PRN PO HEADACHE or DISCOMFORT 07/10/19 20:00 07/11/19 02:31 DC 07/10/19 21:41 Al Hydrox/Mg Hydrox/Simethicone (Mylanta) 30 ml Q4HP PRN PO HEARTBURN/INDIGESTION 07/10/19 20:00 07/13/19 23:25 Chlorpromazine HCl (Thorazine) 25 mg STAT STAT IM 07/09/19 21:59 07/09/19 22:04 DC 07/09/19 22:18 Chlorpromazine HCl (Thorazine) 50 mg STAT STAT IM 07/09/19 23:20 07/09/19 23:21 DC 07/10/19 00:06 Diphenhydramine HCl (Benadryl Cream) APPLY TO AFFECTED AREA TIDP PRN TOP ITCHING 07/10/19 21:45 07/11/19 01:10 Diphenhydramine HCl (Benadryl) 50 mg Q6HP PRN PO ITCHING 07/10/19 21:45 07/15/19 20:27 Emollient Cream (Vanicream) 1 dose BID TOP 07/11/19 09:00 07/16/19 08:29 Gabapentin (Neurontin) 100 mg TID PO 07/11/19 16:00 07/12/19 19:23 DC 07/12/19 16:08 Gabapentin (Neurontin) 200 mg TID PO 07/12/19 21:00 07/16/19 08:27 Home Med (Med Rec Complete!) ASDIRECTED XX 07/10/19 09:15 07/10/19 09:10 DC Ibuprofen (Advil) 400 mg Q6HP PRN PO PAIN 07/11/19 02:30 07/15/19 08:14 Lorazepam (Ativan) 1 mg Q4HP PRN PO ANXIETY 07/11/19 07:00 07/16/19 06:10 Lorazepam (Ativan) 2 mg STAT STAT PO 07/09/19 23:12 07/09/19 23:13 DC 07/09/19 23:41 Lorazepam (Ativan) 2 mg STAT STAT PO 07/10/19 16:27 07/10/19 16:29 DC 07/10/19 16:37 Magnesium Hydroxide (Milk Of Magnesia) 30 ml DAILYPRN PRN PO CONSTIPATION 07/10/19 20:00 Nicotine (Nicoderm Cq 21mg) 1 patch DAILY PRN TD NICOTINE WITHDRAWL 07/10/19 20:00 07/13/19 20:03 DC 07/13/19 06:49 Nicotine (Nicoderm Cq 21mg) 2 patch DAILY PRN TD NICOTINE WITHDRAWL 07/13/19 20:03 07/16/19 06:49 Olanzapine (ZyPREXA ZYDIS) 5 mg Q4HP PRN PO AGITATION 07/10/19 20:00 07/13/19 19:47 DC 07/13/19 13:50 Olanzapine (ZyPREXA ZYDIS) 10 mg Q4HP PRN PO AGITATION 07/13/19 19:45 07/16/19 07:40 Olanzapine (ZyPREXA) 5 mg BID PO 07/13/19 21:00 07/14/19 20:34 DC 07/14/19 20:15 Olanzapine (ZyPREXA) 5 mg QHS PO 07/15/19 21:00 07/15/19 20:27 Olanzapine (ZyPREXA) 7.5 mg DAILY PO 07/15/19 09:00 07/16/19 08:27 Paliperidone (Invega) 3 mg QHS PO 07/12/19 21:00 07/13/19 19:47 DC 07/12/19 20:22 Prazosin HCl (Minipress) 1 mg QHS PO 07/13/19 21:00 07/13/19 19:47 DC Prazosin HCl (Minipress) 2 mg QHS PO 07/13/19 21:00 07/15/19 20:28 Quetiapine Fumarate (SEROquel) 100 mg QHS PO 07/11/19 21:00 07/11/19 14:44 DC Quetiapine Fumarate (SEROquel) 150 mg QHS PO 07/11/19 21:00 07/12/19 19:33 DC 07/11/19 19:50 Trazodone HCl (Desyrel) 50 mg QHSP PRN PO INSOMNIA 07/10/19 20:00 07/13/19 10:10 DC 07/12/19 20:24 Trazodone HCl (Desyrel) 100 mg QHSP PRN PO INSOMNIA 07/13/19 10:15 07/15/19 20:28 Allergies Coded Allergies: chlorpromazine (Unverified Allergy, Severe, Lockjaw, 07/12/19) Information provided by mother who cares for him. haloperidol (Verified Allergy, Intermediate, EPS/ LOCKJAW, 07/12/19) nortriptyline (Verified Allergy, Unknown, 07/09/19) JENNIFER GUIDRY DO Jul 16, 2019 09:52
[2019-07-16] MEDS ORDERED: PROPRANOLOL 10 MG TAB PO ONE (12:00)
[2019-07-16 15:30] VITALS: BP 135/89
[2019-07-16] MEDS: IBUPROFEN 400 MG TAB PO PRN (17:03)
[2019-07-16] MEDS: PRAZOSIN 1 MG CAP PO SCH (19:56)
[2019-07-16] MEDS: diphenhydrAMINE 50 MG CAP PO PRN (19:56)
[2019-07-16] MEDS: traZODone 50 MG TAB PO PRN (19:56)
[2019-07-16] MEDS: OLANZapine 10 MG TAB PO SCH (19:57)
[2019-07-16] MEDS ORDERED: OLANZapine 5 MG TAB PO SCH (21:00)
[2019-07-17] MEDS: IBUPROFEN 400 MG TAB PO PRN (06:11)
[2019-07-17] MEDS: LORazepam 1 MG TAB PO PRN ×2 (06:11→11:05)
[2019-07-17] MEDS: NICOTINE 21MG/24HR 1 EA TRANSDERMAL TD PRN (06:12)
[2019-07-17 06:58] VITALS: BP 149/95
[2019-07-17] MEDS: OLANZapine 10 MG TAB PO SCH ×2 (08:08→20:27)
[2019-07-17] MEDS: VANICREAM MOISTURIZING SKIN CREAM 113GM TUBE TOP SCH ×2 (08:08→20:27)
[2019-07-17] MEDS: GABAPENTIN 100 MG CAP PO SCH ×3 (08:08→20:28)
--- NOTE | 2019-07-17 09:35 | MHIPNPDOC ---
[facility] Progress Note Progress Note Inpatient Progress Note Akbar Singh MRN: N/A Date of : N/A Date of Service: 07/17/2019 History of Present Illness The patient a 43-year-old man with a long history of schizophrenia and substance abuse presents to [facility], distorted with extremely poor hygiene and inability to care for himself. In the ER, he was noted to be fairly psychotic and distorted. When he was admitted to the inpatient unit, he was not ed to have extremely poor hygiene and difficulty attending to his needs. He continues to remain paranoid, feeling that others are out to get him. He is not established with any mental health provider and is currently struggling to maintain his basic self-care. On evaluation in the ER, he reportedly was brought in by a friend and stated that he had become increasingly more psychotic as he had been using marijuana where he had been worried that his television was talking to him and that he had suicidal thought where he would throw the television out the window. Interval History Patient reports improves thoughts, less agitation with greater improvement in his ability to attend to his needs, no major events overnight, feels ready for d/c tomorrow the patient reports that he has been feeling "great" he reports no side effects from the medications, does get anxious around visitation with multiple people. Review Of Systems General: Denies fever or weight change Cardiovascular: Denies Chest pain or palpations GI: Denies Nausea, vomiting, or bowel changes Respiratory: Denies shortness of breath or cough Neuro: Denies dizziness, tremors Derm: Reports improved rash as above MSK: Denies any muscle tightness or stiffness HEENT: Denies any vision changes or headaches Endo: denies any cold/heat intolerance or water intake changes Psychotherapy None on this visit. Vital Signs Reviewed. Mental Status Examination General: Improved hygiene. Speech: Fairly spontaneous. Thought processes: Less circumstantial. MSK: Smooth and coordinated gait, no signs of tremors or involuntary orofacial movements Thought content: paranoid thoughts are not present, anxiety is easily worked with and reasoned Abstract reasoning, and computation: Improved. Description of associations: Improved. Description of abnormal or psychotic thoughts: Denies suicidal or homicidal ideation. Reports no auditory or visual hallucinations at this time. Judgment: Improved. Insight: Improved. Orientation: Alert and orientated 3 Cognition: Grossly normal Recent and remote memory: Intact Attention span and concentration: Improved. Fund of knowledge: Adequate Mood: "thank you bro!" Affect: euthymic with less of a restricted range Diagnoses Schizophrenia. PTSD, chronic. Cannabis use disorder, severe. Tobacco use disorder, severe. Alcohol use disorder, unspecified. Opioid use disorder, in remission of unspecified degree. 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 Assessment and Plan Schizophrenia/PTSD: continue Zyprexa to 10 mg b.i.d. with 10 mg p.r.n. MDD of 30 mg daily. 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 Substance use disorders: Will double nicotine patches. Patient is a heavy smoker, no need for CIWA at this time. Opioid and hallucinogen and cocaine use disorder that appears to be in remission. Will recommend follow up as an outpatient. Disposition discharge tomorrow Time Spent 20 minutes [id number] Tuesday Vital Signs Vital Signs Date Time Temp Pulse Resp B/P (MAP) Pulse Ox O2 Delivery O2 Flow Rate FiO2 07/17/19 06:58 96.8 103 16 149/95 (113) 07/14/19 06:56 Room Air Current Medications Current Medications Medications (Trade) Dose Ordered Sig/Casimiro Route PRN Reason Start Time Stop Time Status Last Admin Dose Admin Acetaminophen (Tylenol Tab) 650 mg Q6HP PRN PO HEADACHE or DISCOMFORT 07/10/19 20:00 07/11/19 02:31 DC 07/10/19 21:41 Al Hydrox/Mg Hydrox/Simethicone (Mylanta) 30 ml Q4HP PRN PO HEARTBURN/INDIGESTION 07/10/19 20:00 07/13/19 23:25 Chlorpromazine HCl (Thorazine) 25 mg STAT STAT IM 07/09/19 21:59 07/09/19 22:04 DC 07/09/19 22:18 Chlorpromazine HCl (Thorazine) 50 mg STAT STAT IM 07/09/19 23:20 07/09/19 23:21 DC 07/10/19 00:06 Diphenhydramine HCl (Benadryl Cream) APPLY TO AFFECTED AREA TIDP PRN TOP ITCHING 07/10/19 21:45 07/11/19 01:10 Diphenhydramine HCl (Benadryl) 50 mg Q6HP PRN PO ITCHING 07/10/19 21:45 07/16/19 19:56 Emollient Cream (Vanicream) 1 dose BID TOP 07/11/19 09:00 07/16/19 19:58 Gabapentin (Neurontin) 100 mg TID PO 07/11/19 16:00 07/12/19 19:23 DC 07/12/19 16:08 Gabapentin (Neurontin) 200 mg TID PO 07/12/19 21:00 07/17/19 08:08 Home Med (Med Rec Complete!) ASDIRECTED XX 07/10/19 09:15 07/10/19 09:10 DC Ibuprofen (Advil) 400 mg Q6HP PRN PO PAIN 07/11/19 02:30 07/17/19 06:11 Lorazepam (Ativan) 1 mg Q4HP PRN PO ANXIETY 07/11/19 07:00 07/17/19 06:11 Lorazepam (Ativan) 2 mg STAT STAT PO 07/09/19 23:12 07/09/19 23:13 DC 07/09/19 23:41 Lorazepam (Ativan) 2 mg STAT STAT PO 07/10/19 16:27 07/10/19 16:29 DC 07/10/19 16:37 Magnesium Hydroxide (Milk Of Magnesia) 30 ml DAILYPRN PRN PO CONSTIPATION 07/10/19 20:00 Miscellaneous (Unresolved Clarification Entry) SEE LABEL COMMENTS DAILY XX 07/17/19 09:00 Nicotine (Nicoderm Cq 21mg) 1 patch DAILY PRN TD NICOTINE WITHDRAWL 07/10/19 20:00 07/13/19 20:03 DC 07/13/19 06:49 Nicotine (Nicoderm Cq 21mg) 2 patch DAILY PRN TD NICOTINE WITHDRAWL 07/13/19 20:03 07/17/19 06:12 Olanzapine (ZyPREXA ZYDIS) 5 mg Q4HP PRN PO AGITATION 07/10/19 20:00 07/13/19 19:47 DC 07/13/19 13:50 Olanzapine (ZyPREXA ZYDIS) 10 mg Q4HP PRN PO AGITATION 07/13/19 19:45 07/16/19 19:26 Olanzapine (ZyPREXA) 5 mg BID PO 07/13/19 21:00 07/14/19 20:34 DC 07/14/19 20:15 Olanzapine (ZyPREXA) 5 mg QHS PO 07/15/19 21:00 07/16/19 10:05 DC 07/15/19 20:27 Olanzapine (ZyPREXA) 7.5 mg DAILY PO 07/15/19 09:00 07/16/19 11:27 DC 07/16/19 08:27 Olanzapine (ZyPREXA) 10 mg BID PO 07/16/19 21:00 07/17/19 08:08 Olanzapine (ZyPREXA) 10 mg QHS PO 07/16/19 21:00 07/16/19 11:27 DC Paliperidone (Invega) 3 mg QHS PO 07/12/19 21:00 07/13/19 19:47 DC 07/12/19 20:22 Prazosin HCl (Minipress) 1 mg QHS PO 07/13/19 21:00 07/13/19 19:47 DC Prazosin HCl (Minipress) 2 mg QHS PO 07/13/19 21:00 07/16/19 19:56 Quetiapine Fumarate (SEROquel) 100 mg QHS PO 07/11/19 21:00 07/11/19 14:44 DC Quetiapine Fumarate (SEROquel) 150 mg QHS PO 07/11/19 21:00 07/12/19 19:33 DC 07/11/19 19:50 Trazodone HCl (Desyrel) 50 mg QHSP PRN PO INSOMNIA 07/10/19 20:00 07/13/19 10:10 DC 07/12/19 20:24 Trazodone HCl (Desyrel) 100 mg QHSP PRN PO INSOMNIA 07/13/19 10:15 07/16/19 19:56 Allergies Coded Allergies: chlorpromazine (Unverified Allergy, Severe, Lockjaw, 07/12/19) Information provided by mother who cares for him. haloperidol (Verified Allergy, Intermediate, EPS/ LOCKJAW, 07/12/19) nortriptyline (Verified Allergy, Unknown, 07/09/19) JENNIFER GUIDRY DO Jul 17, 2019 09:35
[2019-07-17] MEDS: OLANZapine ORAL DISINTEGRATING TAB 5MG PO PRN ×2 (13:28→19:41)
[2019-07-17] MEDS ORDERED: PROPRANOLOL 10 MG TAB PO ONE (20:00)
[2019-07-17 20:07] VITALS: BP 136/89
[2019-07-17 20:28] VITALS: BP 136/91
[2019-07-17] MEDS: PRAZOSIN 1 MG CAP PO SCH (20:28)
[2019-07-17] MEDS: traZODone 50 MG TAB PO PRN (20:31)
[2019-07-18 07:33] VITALS: BP 141/98
[2019-07-18] MEDS: OLANZapine 10 MG TAB PO SCH (08:41)
[2019-07-18] MEDS: OLANZapine ORAL DISINTEGRATING TAB 5MG PO PRN (08:41)
[2019-07-18] MEDS: GABAPENTIN 100 MG CAP PO SCH (08:41)
[2019-07-18] MEDS: VANICREAM MOISTURIZING SKIN CREAM 113GM TUBE TOP SCH (09:00)
[2019-07-18] MEDS ORDERED: VANI1CRE5 TOP (09:02)
[2019-07-18] MEDS ORDERED: TRAZ-252 PO (09:02)
[2019-07-18] MEDS ORDERED: GABA-1171 PO (09:02)
[2019-07-18] MEDS ORDERED: OLAN10TA2 PO (09:02)
[2019-07-18] MEDS ORDERED: MINI1CAP PO (09:02)
[2019-07-18] MEDS ORDERED: NICO21PAT TD (09:02)
--- NOTE | 2019-07-18 10:08 | MHDSPDOC ---
[facility] Discharge Summary Discharge Summary DATE OF ADMISSION: Jul 10, 2019 at 19:52 DATE OF DISCHARGE: 07/19/19 Akbar Singh Discharge Akbar Singh Select Gender MRN: N/A Date of : MM/DD/YYYY Date of Service: 07/18/2019 Diagnoses Schizophrenia. PTSD, chronic. Cannabis use disorder, severe. Tobacco use disorder, severe. Alcohol use disorder, unspecified. Opioid use disorder, in remission of unspecified degree. 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 History of Present Illness The patient a 43-year-old man with a long history of schizophrenia and substance abuse presents to [facility], distorted with extremely poor hygiene and inability to care for himself. In the ER, he was noted to be fairly psychotic and distorted. When he was admitted to the inpatient unit, he was noted to have extremely poor hygiene and difficulty attending to his needs. He c ontinues to remain paranoid, feeling that others are out to get him. He is not established with any mental health provider and is currently struggling to maintain his basic self-care. On evaluation in the ER, he reportedly was brought in by a friend and stated that he had become increasingly more psychotic as he had been using marijuana where he had been worried that his television was talking to him and that he had suicidal thought where he would throw the television out the window. Consultants Involved Hospitalist/PCP screening Treatment and Progress On The Unit The patient was admitted to the unit and subsequently tried on a combination of Invega and Haldol in order to control his psychotic symptoms. He was notably paranoid and had difficulty with getting irritable, but never violent while on the unit due to his paranoia. The patient had significant trouble bathing due to his skin condition, however, after placing the emollient cream and getting the patient to engage in better hygiene, his skin condition improved suggesting supreme self neglect as part of his presenting illness. The patient was eventually tried on Zyprexa and it was increased to 10 mg BID with positive effects on his anxiety and mood. He did require some PRN's up to a total dose of 30 mg a day of Zyprexa in various different forms. The patient was increased on gabapentin to 200 mg TID for pain as recommended by dermatology. He made some improvements becoming much less paranoid, bizarre. He was no longer suicidal and was able to attend to his basic needs, able to be thankful and grateful for this treatment team. On the day of discharge, he did not meet involuntary criteria as he was denying suicidal and homicidal ideation. He was able to attend to his basic needs and some paranoid/bizarre thoughts were still present, but that he was able to question them and was able to cooperate with his discharge well enough to suggest that he is able to attend to his basic needs and thus when he requested to leave and declined voluntary, was discharged in good maribell. Discharge Assessment 43-year-old man with no previous history of psychotic illness presents with psychotic illness, he has significant cannabis use and drug use history. It could be possible a synthetic or hallucinogen could have been involved in his presenting illness, however, his severe self neglect appears to suggest underlying schizophrenia. Mental Status Examination General: Well dressed with good hygiene Speech: Spontaneous and fluid Thought processes: Linear and logical MSK: Smooth and coordinated gait, no signs of tremors or involuntary orofacial movements Thought content: Future orientated Abstract reasoning, and computation: Intact Description of associations: Intact Description of abnormal or psychotic thoughts: Denies any suicidal or homicidal ideation. Denies any auditory or visual hallucinations. Does not appear to be responding to internal stimuli. Does not appear to be endorsing any bizarre or paranoid ideation. Judgment: fair Insight: fair Orientation: Alert and orientated 3 Cognition: Grossly normal Recent and remote memory: Intact Attention span and concentration: Intact Fund of knowledge: Adequate Mood: "okay" Affect: Euthymic with a full range Follow Up The social work team worked during the predischarge meeting in order to evaluate for further issues of lethality address them fully before discharge. They worked on safety planning with the patient's family members in order to ensure that the patient will have a safe and effective discharge. Time Spent The amount of time spent in the coordination of care for this patient was approximately 30 minutes. Vital Signs/I&Os Vital Signs Date Time Temp Pulse Resp B/P (MAP) Pulse Ox O2 Delivery O2 Flow Rate FiO2 07/18/19 07:33 97.8 87 18 141/98 (112) 07/14/19 06:56 Room Air Medications Scheduled Emollient Base (Vanicream) 453 Gm Cream..g., 1 DOSE TOP BID for skin for 30 Days, #1 Gabapentin (Gabapentin) 100 Mg Capsule, 200 MG PO TID for pain for 7 Days, #42 Olanzapine (Olanzapine) 10 Mg Tablet, 10 MG PO BID for thoughts for 7 Days, #14 Prazosin HCl (Minipress) 1 Mg Capsule, 2 MG PO QHS for nightmares for 7 Days, #14 Scheduled PRN Nicotine (Nicotine Patch) 21 Mg Patch.td24, 2 PATCH TD DAILY PRN for NICOTINE WITHDRAWL for 30 Days, #60 Trazodone HCl (Trazodone HCl) 50 Mg Tablet, 100 MG PO QHSP PRN for INSOMNIA for 7 Days, #14 Allergies Coded Allergies: chlorpromazine (Unverified Allergy, Severe, Ron, 07/12/19) Information provided by mother who cares for him. haloperidol (Verified Allergy, Intermediate, EPS/ LOCKJAW, 07/12/19) nortriptyline (Verified Allergy, Unknown, 07/09/19) JENNIFER GUIDRY DO Jul 18, 2019 10:08
== END 2019-07-18 10:20 | disposition home or self-care (01) | DRG 750 ==
LOC: M ED 17:13 → M ED INP 07-10 19:52 → M PSY 07-10 20:54
PROVIDERS: ADMIT Psychiatry & Neurology Psychiatry; ATTEND Psychiatry & Neurology Addiction Medicine
DX: F20.9 Schizophrenia, unspecified (principal); D75.1 Secondary polycythemia; F12.90 Cannabis use, unspecified, uncomplicated; F17.200 Nicotine dependence, unspecified, uncomplicated; F11.90 Opioid use, unspecified, uncomplicated; F15.90 Other stimulant use, unspecified, uncomplicated; F43.10 Post-traumatic stress disorder, unspecified; Z88.8 Allergy status to other drugs, medicaments and biological substances; E87.6 Hypokalemia; Z79.899 Other long term (current) drug therapy

== ENCOUNTER 2019-07-25 09:25 | Emergency (ER) | payer MEDICAID, OTHER ==
[~2019-07-25] VITALS: Ht 167.6 cm; Wt 73.1 kg
[~2019-07-25 09:25] MED LIST changes: +GABA-1171 PO; +MINI1CAP PO; +NICO21DI37 TOP; +NICO21PAT TD; +OLAN10TA2 PO; +PRAZ2CAP PO; +TRAZ-252 PO; +VANI1CRE5 EX; +VANI1CRE5 TOP; +ZYPR10TA PO
--- NOTE | 2019-07-25 11:43 | ED PDOC ---
Provider Note Outpatient Psych Progress note DOS: 07/25/2019 CC:" Hi, im doing good" Subjective: The patient a 43 year-old man, presents for follow up of medications, he was recently discharged from the inpatient unit under my care, he reports that he ran out of his medications as he has trouble organizing him. His daycare manager is attempting to get him a locked medication dispenser so that he will be able to use his medications but reports he wanted a refill of his olanzapine as he felt it was helpful for his racing thoughts and anxiety. He denies any suicidal or homicidal ideation. I met with him briefly where he was excited to see me again. Reports she's tolerating the olanzapine well with no side effects. Psychiatric Mental Status Exam: Vital Signs: Reviewed General: Well dressed with good hygiene Speech: Spontaneous and fluid Thought processes: Linear and logical Thought content: Future orientated Abstract reasoning, and computation: Intact Description of associations: Intact Description of abnormal or psychotic thoughts:Denies any suicidal or homicidal ideation. Denies any auditory or visual hallucinations. Does not appear to be responding to internal stimuli. Does not appear to be endorsing any bizarre or paranoid ideation. Judgment: Fair Insight: Fair Orientation: Alert and orientated 3 Recent and remote memory: Intact Attention span and concentration: Intact Fund of knowledge: Adequate Mood: "He bro" Affect: Euthymic with a full range A&P: Will increase patient's olanzapine to 15 mg twice a day, as when necessary dosing is not covered by his insurance. Had Dr. Andre, since prescription for olanzapine as this provider's Medicaid number is not available and the patient w ould not be able to get medication covered. assistant casino shift manager was informed and is arranging his locked medication box so that he will be able to more effectively compliant with his medications. He denies any suicidal or homicidal ideation and does not meet involuntary criteria as he is able to attend to his needs his hygiene is good and he is cooperating with all parts of the encounter. In my clinical judgment he does not meet involuntary criteria due to the factors above. He declines a voluntary admission to return as he reports he is happy at home. Time Spent: 15 Mins of face to face time. JENNIFER De Los Santos DO Jul 25, 2019 11:43
[2019-07-25] MEDS ORDERED: ZYPR10TA PO (11:45)
[2019-07-25] MEDS ORDERED: ZYPR5TAB2 PO (11:45)
[2019-07-25 11:55] VITALS: BP 134/83
[2019-07-26] MEDS ORDERED: ZYPR15TA PO (12:52)
== END 2019-07-25 11:57 | disposition home or self-care (01) ==
LOC: M ED 09:25
DX: F20.9 Schizophrenia, unspecified (principal); F17.210 Nicotine dependence, cigarettes, uncomplicated; Z88.4 Allergy status to anesthetic agent; Z88.8 Allergy status to other drugs, medicaments and biological substances; Z79.83 Long term (current) use of bisphosphonates; Z79.899 Other long term (current) drug therapy

== ENCOUNTER 2019-08-03 10:42 | Emergency (ER) | payer MEDICAID, OTHER ==
[~2019-08-03] VITALS: Ht 165.1 cm; Wt 77.6 kg
[~2019-08-03 10:42] MED LIST changes: +ZYPR15TA PO; +ZYPR5TAB2 PO
[2019-08-03 10:43] VITALS: BP 166/109
[2019-08-03] MEDS ORDERED: HYDR-643 PO (13:52)
--- NOTE | 2019-08-03 13:52 | ED PDOC ---
Provider Note Phone consultation undertaken, the patient is well-known to me from his recent admission. He presented her the PSA worker with anxiety only no suicidal or homicidal ideation. He reports he is been taking the Zyprexa but presents for anxiety. He is presented requesting medication for his anxiety, he is under max dose of Zyprexa and had done well on hydroxyzine as an inpatient, which will be sent is a short supply until he sees his new outpatient provider August [address] connected to outpatient [facility] or he will follow-up. JENNIFER GUIDRY DO Aug 03, 2019 13:52
== END 2019-08-03 11:47 | disposition left against medical advice (07) ==
LOC: M ED 10:42
DX: F41.9 Anxiety disorder, unspecified (principal); F19.10 Other psychoactive substance abuse, uncomplicated; F17.200 Nicotine dependence, unspecified, uncomplicated; F20.9 Schizophrenia, unspecified; Z53.21 Procedure and treatment not carried out due to patient leaving prior to being seen by health care provider; Z79.899 Other long term (current) drug therapy; Z88.8 Allergy status to other drugs, medicaments and biological substances

== ENCOUNTER 2019-08-13 10:52 | Emergency (ER) | payer MEDICAID, OTHER ==
[2019-08-13 10:52] VITALS: BP 150/103
[~2019-08-13 10:52] MED LIST changes: +HYDR-643 PO
== END 2019-08-13 12:26 | disposition home or self-care (01) ==
LOC: M ED 10:52
DX: F41.1 Generalized anxiety disorder (principal); I10 Essential (primary) hypertension; G47.30 Sleep apnea, unspecified; B17.10 Acute hepatitis C without hepatic coma; Z86.69 Personal history of other diseases of the nervous system and sense organs; F17.210 Nicotine dependence, cigarettes, uncomplicated; Z88.4 Allergy status to anesthetic agent; Z88.8 Allergy status to other drugs, medicaments and biological substances; Z79.83 Long term (current) use of bisphosphonates; Z79.811 Long term (current) use of aromatase inhibitors; Z79.899 Other long term (current) drug therapy

== ENCOUNTER → 2020-05-21 | Outpatient (REF) | payer MEDICAID, OTHER ==
[~2020-05-21] MED LIST changes: -FLUO20CA19 PO; +FLUO20CA22 PO; +QUET100T2 PO; -QUET1TAB8 PO; -TRAZ-163 PO; +TRAZ-257 PO
[2020-05-21 18:19] LABS: BASO % 0.3 % (0.0-1.0); EOS # 0.1 10^3/uL (0.0-0.5); EOS % 1.6 % (0.0-3.0); HEMATOCRIT 45.6 % (42.0-52.0); HEMOGLOBIN 15.5 g/dl (13.5-17.5); LYMPH # 1.3 10^3/uL (1.5-5.0); LYMPH % 17.4 % (24.0-44.0); MEAN CORPUSCULAR HEMOGLOBIN 31.8 pg (27.0-33.0); MEAN CORPUSCULAR VOLUME 93.4 fl (80.0-96.0); MONO # 0.5 10^3/uL (0.0-0.8); MONO % 6.6 % (0.0-5.0); NEUTROPHILS # 5.5 10^3/uL (1.5-8.5); NEUTROPHILS % 73.3 % (36.0-66.0); PLATELET COUNT, AUTOMATED 151 10^3/uL (150-450); RED BLOOD COUNT 4.88 10^6/uL (4.30-6.10); WHITE BLOOD COUNT 7.5 10^3/uL (4.0-10.0)
[2020-05-21 18:34] LABS: ALBUMIN 3.7 GM/DL (3.2-5.2); ALT/SGPT 114 U/L (12-78); BILIRUBIN,TOTAL 0.9 MG/DL (0.2-1.0); BLOOD UREA NITROGEN 7 MG/DL (7-18); CALCIUM LEVEL 9.1 MG/DL (8.5-10.1); CARBON DIOXIDE LEVEL 30 MEQ/L (21-32); CHLORIDE LEVEL 100 MEQ/L (98-107); CREATININE FOR GFR 0.68 MG/DL (0.70-1.30); GLOMERULAR FILTRATION RATE > 60.0 (>60); GLUCOSE, FASTING 101 MG/DL (70-100); POTASSIUM SERUM 3.8 MEQ/L (3.5-5.1); SODIUM LEVEL 135 MEQ/L (136-145); VALPROIC ACID (DEPAKOTE) < 3.0 UG/ML (50.0-100.0)
== END ==
LOC: M LABDRWAD 16:53
PROVIDERS: ATTEND Nurse Practitioner Family
DX: F25.9 Schizoaffective disorder, unspecified (principal)

== ENCOUNTER → 2020-11-21 | Outpatient (REF) | payer OTHER ==
[~2020-11-21] MED LIST changes: -QUET1TAB7 PO; +QUET25TA3 PO; +QUET50TA3 PO; -QUET5TAB PO
[2020-11-21 16:46] LABS: BASO # 0.1 10^3/uL (0.0-0.2); BASO % 1.1 % (0.0-1.0); EOS # 0.4 10^3/uL (0.0-0.5); EOS % 8.1 % (0.0-3.0); HEMATOCRIT 52.4 % (42.0-52.0); HEMOGLOBIN 16.6 g/dl (13.5-17.5); LYMPH # 1.4 10^3/uL (1.5-5.0); LYMPH % 31.3 % (24.0-44.0); MEAN CORPUSCULAR HGB CONC 31.7 g/dl (32.0-36.5); MEAN CORPUSCULAR VOLUME 94.8 fl (80.0-96.0); MONO # 0.3 10^3/uL (0.0-0.8); MONO % 5.9 % (2.0-8.0); NEUTROPHILS # 2.4 10^3/uL (1.5-8.5); NEUTROPHILS % 52.9 % (36.0-66.0); PLATELET COUNT, AUTOMATED 144 10^3/uL (150-450); RED BLOOD COUNT 5.53 10^6/uL (4.30-6.10); WHITE BLOOD COUNT 4.4 10^3/uL (4.0-10.0)
[2020-11-21 17:15] LABS: ALBUMIN 3.8 GM/DL (3.2-5.2); ALT/SGPT 97 U/L (12-78); BILIRUBIN,TOTAL 0.7 MG/DL (0.2-1.0); BLOOD UREA NITROGEN 7 MG/DL (7-18); CALCIUM LEVEL 9.1 MG/DL (8.5-10.1); CARBON DIOXIDE LEVEL 31 MEQ/L (21-32); CHLORIDE LEVEL 102 MEQ/L (98-107); CREATININE FOR GFR 0.84 MG/DL (0.70-1.30); FREE T4 1.19 NG/DL (0.76-1.46); GLOMERULAR FILTRATION RATE > 60.0 (>60); GLUCOSE, FASTING 75 MG/DL (70-100); POTASSIUM SERUM 4.3 MEQ/L (3.5-5.1); SODIUM LEVEL 138 MEQ/L (136-145)
== END ==
LOC: M SFHCADAM 12:56
PROVIDERS: ATTEND Family Medicine
DX: R56.9 Unspecified convulsions (principal)

== ENCOUNTER 2021-01-01 21:21 | Inpatient (IN) | payer OTHER ==
[~2021-01-01] VITALS: Ht 170.2 cm; Wt 80.8 kg
[2021-01-01 22:16] LABS: HEMATOCRIT 51.7 % (42.0-52.0); HEMOGLOBIN 17.2 g/dl (13.5-17.5); MEAN CORPUSCULAR HEMOGLOBIN 30.6 pg (27.0-33.0); MEAN CORPUSCULAR HGB CONC 33.3 g/dl (32.0-36.5); PLATELET COUNT, AUTOMATED 254 10^3/uL (150-450); RED BLOOD COUNT 5.62 10^6/uL (4.30-6.10); WHITE BLOOD COUNT 9.1 10^3/uL (4.0-10.0)
[2021-01-01 23:43] LABS: AMPHETAMINES LEVEL URINE NEGATIVE (NEGATIVE); BARBITURATES URINE NEGATIVE (NEGATIVE); BENZODIAZEPINES URINE NEGATIVE (NEGATIVE); CANNABINOIDS URINE POSITIVE (NEGATIVE); COCAINE METABOLITE URINE POSITIVE (NEGATIVE); METHADONE URINE POSITIVE (NEGATIVE); OPIATES URINE POSITIVE (NEGATIVE); PHENCYCLIDINE URINE NEGATIVE (NEGATIVE)
[2021-01-01 23:57] LABS: ACETAMINOPHEN LEVEL < 2.0 UG/ML (10.0-30.0); ALBUMIN 3.8 GM/DL (3.2-5.2); ALT/SGPT 72 U/L (12-78); BILIRUBIN,DIRECT 0.8 MG/DL (0.0-0.2); BILIRUBIN,TOTAL 1.7 MG/DL (0.2-1.0); BLOOD UREA NITROGEN 30 MG/DL (7-18); CALCIUM LEVEL 9.2 MG/DL (8.5-10.1); CARBON DIOXIDE LEVEL 25 MEQ/L (21-32); CHLORIDE LEVEL 106 MEQ/L (98-107); CREATININE FOR GFR 1.05 MG/DL (0.70-1.30); ETHYL ALCOHOL (ETHANOL) < 0.003 % (0.000-0.010); GLOMERULAR FILTRATION RATE > 60.0 (>60); GLUCOSE, FASTING 86 MG/DL (70-100); POTASSIUM SERUM 3.7 MEQ/L (3.5-5.1); SALICYLATE LEVEL < 1.7 MG/DL (5.0-30.0); SODIUM LEVEL 141 MEQ/L (136-145); TOTAL PROTEIN 8.4 GM/DL (6.4-8.2)
[2021-01-02 02:39] LABS: MAGNESIUM LEVEL 2.5 MG/DL (1.8-2.4)
[2021-01-02] MEDS ORDERED: NS 1,000 ML IV ONE (03:50)
--- NOTE | 2021-01-02 04:14 | HPEPDOC ---
[facility] Medical History & Physical Date of Admission Jan 02, 2021 Date of Service: Jan 02, 2021 History and Physical CHIEF COMPLAINT: Drug intoxication HISTORY OF PRESENT ILLNESS: This is a 45-year-old male history of schizophrenia and depression and polysubstance drug abuse. Entire history is obtained from ED staff as patient is intoxicated and rambling incoherently. Im told that he was found wandering around the streets talking to himself. Family was contacted from the ED to know if shes been taking his medications or not. Patient was going to be held in the emergency department and transferred to the inpatient mental health unit. However EKG revealed a prolonged QTC 621 and multiple drugs positive on urine drug screen. Repeat EKG after some time showed QTC had improved down to 575. It is unclear if patient try to take more for psychiatric medications resulting in the increased QTC or if he has any underlying suicidal ideation or attempt because he has any questions. Patient will be admitted for observation to the medical service for telemetry monitoring once QTC has improved off of his psych medications he can be transferred to the inpatient mental health unit. PAST MEDICAL/SURGICAL HISTORY: Schizophrenia Depression Polysubstance drug abuse ? History of hepatitis C unknown if treated SOCIAL HISTORY: Unknown other than that he uses multiple drugs FAMILY HISTORY: Im unable to obtain family history due to agents mental state ALLERGIES: Please see below. REVIEW OF SYSTEMS: Im unable to obtain review of systems due to patients mental state due to his drug intoxication HOME MEDICATIONS: Please see below. PHYSICAL EXAMINATION: Constitutional: Appears intoxicated but not in any distress. Sleeping in and out. ENT: Not jaundiced Respiratory: Lungs CTA bilaterally. No respiratory distress. Protecting his airway. Cardiovascular: Regular rate and rhythm Gastrointestinal: Abdomen is soft, non distended, BS present. Musculoskeletal: No lower extremity edema. Neurologic: Unable to assess Mental Status: Intoxicated not answering my questions mumbles and goes back to sleep. Skin: multiple tattoos all over his body. LABORATORY DATA: See below. IMAGING: See chart MICROBIOLOGY: Please see below. ASSESSMENT Prolonged QTC on EKG Schizophrenia and depression Polysubstance drug abuse History of hepatitis C? PLAN: 45-year-old male with schizophrenia intoxicated with multiple drugs found wandering on streets was going to be admitted to the intubation mental health unit but QTC was found to be prolonged will instead be admitted for observation into the medical unit with telemetry monitoring. Multiple psychiatric medications can prong QTC and it is unclear whether patient intentionally tried to overdose if he has any underlying suicidal ideation or attempt he will be placed with a sitter. His psychiatric medications will be held for now. Repeat EKG in the morning. Consult psychiatry in the morning. Check hepatitis panel. Lovenox for DVT prophylaxis. A Yousef Hospitalist Vital Signs Vital Signs Date Time Temp Pulse Resp B/P (MAP) Pulse Ox O2 Delivery O2 Flow Rate FiO2 01/01/21 22:15 97.2 74 20 123/66 (85) 98 Room Air Laboratory Data Labs 24H Laboratory Tests 2 01/01/21 22:09: Nucleated Red Blood Cells % (auto) 0.0 01/01/21 23:09: Urine Color BIRDIE, Urine Appearance HAZY, Urine pH 5.0, Urine Specific [place] 1.025, Urine Protein 1+H, Urine Glucose (UA) NEGATIVE, Urine Ketones NEGATIVE, Urine Blood NEGATIVE, Urine Nitrite NEGATIVE, Urine Bilirubin NEGATIVE, Urine Urobilinogen 4.0H, Urine Leukocyte Esterase TRACEH, Urine WBC (Auto) 4H, Urine RBC (Auto) 3, Urine Hyaline Casts (Auto) 0, Urine Bacteria (Auto) NEGATIVE, Urine Squamous Epithelial Cells 1, Urine Mucus (Auto) LARGE, Urine Sperm (Auto) , Anion Gap 10, Glomerular Filtration Rate > 60.0, Calcium Level 9.2, Magnesium Level 2.5H, Total Bilirubin 1.7H, Direct Bilirubin 0.8H, Aspartate Amino Transf (AST/SGOT) 91H, Alanine Aminotransferase (ALT/SGPT) 72, Alkaline Phosphatase 118H, Total Protein 8.4H, Albumin 3.8, Albumin/Globulin Ratio 0.8, Thyroid Stimulating Hormone (TSH) 1.530, Salicylates Level < 1.7L, Urine Opiates Screen POSITIVEH, Urine Methadone Screen POSITIVEH, Acetaminophen Level < 2.0L, Urine Barbiturates Screen NEGATIVE, Urine Phencyclidine Screen NEGATIVE, Urine Amphetamines Screen NEGATIVE, Urine Benzodiazepines Screen NEGATIVE, Urine Cocaine Metabolite Screen POSITIVEH, Urine Cannabinoids Screen POSITIVEH, Ethyl Alcohol Level < 0.003 CBC/BMP Laboratory Tests 01/01/21 22:09 01/01/21 23:09 Microbiology Microbiology 01/02/21 Respiratory Virus Panel (PCR) (JORGE) - Final, Complete 01/01/21 Urine Culture, Received Pending Home Medications Scheduled Emollient Base (Vanicream) 453 Gm Cream..g., 1 CRE EX BID for itching Gabapentin (Gabapentin) 100 Mg Capsule, 200 MG PO TID for pain Olanzapine (Zyprexa) 15 Mg Tablet, 15 MG PO BID for /psychosis Prazosin Hcl (Prazosin HCl) 2 Mg Capsule, 2 MG PO QPM for nightmares Trazodone HCl (Trazodone HCl) 50 Mg Tablet, 50 MG PO QPM for sleep Scheduled PRN Hydroxyzine HCl (Hydroxyzine HCl) 10 Mg Tablet, 1 TAB PO BID PRN for ANXIETY/AGITATION Allergies Coded Allergies: chlorpromazine (Unverified Allergy, Severe, Lockjaw, 07/12/19) Information provided by mother who cares for him. haloperidol (Verified Allergy, Intermediate, EPS/ LOCKJAW, 07/12/19) nortriptyline (Verified Allergy, Unknown, 07/09/19) A-FIB/CHADSVASC A-FIB History Current/History of A-Fib/PAF?: No NATHALIASEYASMANY De Luna MD Jan 02, 2021 04:14
[2021-01-02] MEDS ORDERED: BENZ-52 PO (05:44)
[2021-01-02] MEDS ORDERED: QUET400T PO (05:44)
[2021-01-02] MEDS ORDERED: PRAZ5CAP PO (05:44)
[2021-01-02] MEDS ORDERED: PRAZ2CAP PO (05:44)
[2021-01-02] MEDS ORDERED: OLAN20TA14 PO (05:44)
[2021-01-02 06:51] LABS: HEMATOCRIT 48.1 % (42.0-52.0); HEMOGLOBIN 15.8 g/dl (13.5-17.5); MEAN CORPUSCULAR HEMOGLOBIN 30.6 pg (27.0-33.0); MEAN CORPUSCULAR HGB CONC 32.8 g/dl (32.0-36.5); MEAN CORPUSCULAR VOLUME 93.2 fl (80.0-96.0); PLATELET COUNT, AUTOMATED 211 10^3/uL (150-450); RED BLOOD COUNT 5.16 10^6/uL (4.30-6.10); WHITE BLOOD COUNT 6.5 10^3/uL (4.0-10.0)
[2021-01-02 07:19] LABS: ALBUMIN 3.1 GM/DL (3.2-5.2); ALT/SGPT 60 U/L (12-78); BILIRUBIN,TOTAL 1.4 MG/DL (0.2-1.0); BLOOD UREA NITROGEN 26 MG/DL (7-18); CALCIUM LEVEL 8.6 MG/DL (8.5-10.1); CARBON DIOXIDE LEVEL 27 MEQ/L (21-32); CHLORIDE LEVEL 110 MEQ/L (98-107); GLOMERULAR FILTRATION RATE > 60.0 (>60); GLUCOSE, FASTING 77 MG/DL (70-100); POTASSIUM SERUM 3.7 MEQ/L (3.5-5.1); SODIUM LEVEL 140 MEQ/L (136-145); TOTAL PROTEIN 7.6 GM/DL (6.4-8.2)
[2021-01-02] MEDS ORDERED: QUET100T2 PO (07:46)
[2021-01-02] MEDS ORDERED: TRAZ-189 PO (07:47)
[2021-01-02] MEDS: ACETAMINOPHEN TAB 650MG DOSE (2X325MG) PO PRN (08:09)
[2021-01-02] MEDS ORDERED: METH10TA2 PO (08:29)
[2021-01-02] MEDS: NS 1,000 ML IV SCH ×3 (09:07→23:20)
[2021-01-02] MEDS: ENOXAPARIN 40MG/0.4ML SYRINGE (J1650 PER 10MG) SC SCH (09:08)
[2021-01-02] MEDS: GASTROGRAFIN SOLUTION 30ML PO SCH (10:00)
[2021-01-02] MEDS ORDERED: ISOVUE-370 76% 100ML VIAL As Ordered ONE (10:24)
[2021-01-02 10:27] LABS: HEPATITIS A ANTIBODY IGM NEGATIVE (NEGATIVE); HEPATITIS B CORE ANTIBODY IGM NEGATIVE (NEGATIVE); HEPATITIS B SURFACE ANTIGEN NEGATIVE (NEGATIVE)
[2021-01-02 10:30] LABS: HEPATITIS C VIRUS ABY INDEX > 11.0 INDEX (<0.8)
--- NOTE | 2021-01-02 10:48 | REP ---
INDICATION: Confusion. COMPARISON: None. TECHNIQUE: Axial CT images with multiplanar reformations. FINDINGS: No acute bleed or acute large vessel territorial infarct. Ventricles, cisterns and sulci are within normal limits. No mass effect or midline shift. No abnormal fluid collections. Paranasal sinuses and mastoid air cells are clear. IMPRESSION: No acute findings. <Electronically signed by Lamine Gongora > 01/02/21 1041
--- NOTE | 2021-01-02 11:38 | REP ---
INDICATION: Abdominal pain. COMPARISON: CT of the pelvis dated 05/05/2011. TECHNIQUE: Abdomen/pelvis CT with IV contrast, without bowel contrast. FINDINGS: There are bibasilar densities in the visualized lower lung suárez which could be acute, chronic or combination. There are no comparison studies. The hepatic parenchyma is homogeneous. There are no hepatic masses or cysts. The gallbladder is unremarkable. The pancreas is unremarkable. The spleen is enlarged measuring 15 cm transversely. The adrenals are unremarkable. The kidneys are unremarkable. The abdominal aorta is unremarkable. There is no periaortic adenopathy or mass. There is no ascites or adenopathy. Pelvis: The appendix is unremarkable. The bladder is unremarkable. There is no adenopathy or ascites. There is no bowel distention or obstruction. There is a ring shaped collection of gas bubbles at the periphery of the cecum of uncertain significance. This could merely represent air trapped between bowel lumen content and the bowel wall or could represent pneumatosis coli. There is no evidence of a bowel wall thickening to suggest ischemia or inflammatory bowel disease. There are no inflammatory changes in the adjacent mesentery. IMPRESSION: Question pneumatosis coli of the cecum versus artifact from air bubbles trapped between bowel lumen content and bowel wall Pneumatosis coli can be benign or life-threatening. By CT there is no bowel wall thickening to suggest ischemia or inflammation. There is no inflammation or stranding into the mesentery. There is no pneumoperitoneum or ascites. Clinical correlation is recommended. Bibasilar opacities in the visualized lung suárez these could be acute, chronic or combination. <Electronically signed by Byron Solomon > 01/02/21 1281
--- NOTE | 2021-01-02 12:20 | ECGEPIP ---
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
[2021-01-02 12:50] LABS: CK-MB VALUE MASS 5.2 NG/ML (<3.6); CPK CREATINE PHOSPHOKINASE 318 U/L (39-308); MB/CK RELATIVE INDEX 1.64 (< OR =4); TROPONIN I < 0.02 NG/ML (< 0.10)
[2021-01-02 13:08] LABS: CK-MB VALUE MASS 5.8 NG/ML (<3.6); CPK CREATINE PHOSPHOKINASE 316 U/L (39-308); MB/CK RELATIVE INDEX 1.84 (< OR =4); TROPONIN I < 0.02 NG/ML (< 0.10)
[2021-01-02 14:20] VITALS: BP 129/68
--- NOTE | 2021-01-02 15:02 | IPNPDOC ---
Text Note Date of Service The patient was seen on 01/02/21. NOTE Subjective: Patient is a 45-year-old male with a PMHx of Schizophrenia, Depression, Polysubstance abuse , who presented to the ER after he found wandering the streets. Patient was intoxicated and rambling incoherently. Patient was initially planned to be transitioned to the inpatient mental health. However, his QTC was noted to be prolonged. Patient was admitted to the hospitalist service for further evaluation and treatment. Patient was seen and examined at the bedside. Currently patient denies any nausea, vomiting, chest pain, palpitations, but does report some shortness of breath. He reports diffuse pain of his hands abdomen and feet. Patient reports some discomfort with urination. Objective: Vitals (See below) General: Lying in bed, no acute distress, comfortable, Oriented x2 (not to time) HEENT: NC, AT CVS: +S1S2 Lungs: Fair air entry b/l, no appreciable wheezing, rhonchi or rales Abdomen: Soft, nondistended, deep palpation doesn't elicit any significant tenderness Extremities: - Edema, - Calf tenderness Assessment and plan: Prolonged QTC on EKG - Patient still reveals prolonged QTC - Will continue with telemetry monitoring - Will repeat lab work / electrolytes - Will start IV fluid hydration Acute metabolic encephalopathy - Oriented to person, place, not to time or president - Patient does not have any focal neurologic deficits - CT head 01/02: No acute findings. - Will continue to hydrate - Psychiatry called on consultation Questionable pneumatosis - Patient was reporting diffuse abdominal pain - Hemodynamically stable and afebrile - Physical no significant tenderness; possibly some tenderness at suprapubic - No leukocytosis or lactic acidosis - CT abdomen / pelvis 01/01: Question pneumatosis coli of the cecum versus artifact from air bubbles trapped between bowel lumen content and bowel wall Pneumatosis coli can be benign or life-threatening. By CT there is no bowel wall thickening to suggest ischemia or inflammation. There is no inflammation or stranding into the mesentery. There is no pneumoperitoneum or ascites. Clinical correlation is recommended. Bibasilar opacities in the visualized lung suárez these could be acute, chronic or combination. - Discussed with surgery about imaging findings; likely artifact - Will continue to monitor Schizophrenia and depression - Will hold psychiatric medications given prolonged QTc - Psychiatry called on consultation today Polysubstance drug abuse - UDS positive for multiple medications - Patient takes methadone at home; will hold for now (re: prolonged QTc) History of hepatitis C - Hepatitis C positive - RNA levels pending DVT prophylaxis - c/w Lovenox Disposition: - Awaiting clinical improvement - Discussed case with Family / Mother / HCP: [phone] VS,Fishbone, I+O VS, Fishbone, I+O Laboratory Tests 01/01/21 22:09 01/01/21 23:09 01/02/21 06:39 Vital Signs Date Time Temp Pulse Resp B/P (MAP) Pulse Ox O2 Delivery O2 Flow Rate FiO2 01/02/21 13:23 97.9 01/02/21 13:15 64 18 107/68 (81) 96 Room Air I&O- Last 24 Hours up to 6 AM 01/02/21 06:00 Intake Total 1000 ml Balance 1000 ml GABRIELA PUGH MD Jan 02, 2021 15:02
[2021-01-02 15:13] LABS: PHOSPHORUS LEVEL 3.8 MG/DL (2.5-4.9)
[2021-01-02] MEDS ORDERED: SLF 3 ML SYR IV PRN (17:15)
--- NOTE | 2021-01-02 17:25 | MHCR ---
CONSULTATION DATE: 01/02/2021 IDENTIFYING DATA: He is a 45-year-old male admitted initially to the ER, transferred to PCU with a history of possible drug overdose. REASON FOR CONSULTATION: Consult was called for a psychiatric evaluation. Staff was consulted. Pt was evaluated. HISTORY OF PRESENT ILLNESS: The patient was positive for opioids, cocaine, and cannabis. Currently unable to give any history. MENTAL STATUS EXAMINATION: He is oriented to person only, not oriented to time and place. His consciousness is fluctuating. Attention is fluctuating. Mostly it is impaired. He could not count forwards from numbers 1 to 20. His cognition and perception is impaired. DIAGNOSIS: Rule out delirium due to substance overdose. We will be able to assess him when he is out of delirium and more coherent. AJI
[2021-01-02 20:00] VITALS: BP 107/58
--- NOTE | 2021-01-02 20:52 | ECGEPIP ---
[facility] - ED Test Date: 2021-01-02 Pat Name: ONI GONSALEZ Department: Room: Gender: Male Assistant Store Director: ILDA NELSONB: 1975 Requested By: RANDY Ortiz Order Number: [id number] Reading MD: Dima Jewell Measurements Intervals [place] Rate: 59 P: 14 NM: 162 QRS: -27 QRSD: 86 T: 0 QT: 628 QTc: 621 Interpretive Statements Sinus bradycardia Possible Left atrial enlargement Minimal voltage criteria for LVH, may be normal variant ( R in aVL ) INCOMPLETE RIGHT BUNDLE BRANCH BLOCK Prolonged QT, new compared to 11/25/15 Electronically Signed on 01-02-2021 20:52:09 EDT by Dima Jewell
--- NOTE | 2021-01-02 20:59 | ECGEPIP ---
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
[2021-01-02] MEDS: SLF 3 ML SYR IV SCH (21:39)
[2021-01-03] VITALS: BP 104/65
[2021-01-03 04:00] VITALS: BP 109/69
[2021-01-03] MEDS: NS 1,000 ML IV SCH ×3 (04:50→23:23)
[2021-01-03] MEDS: SLF 3 ML SYR IV SCH ×3 (05:16→22:00)
[2021-01-03 08:00] VITALS: BP 122/81
[2021-01-03 08:00] LABS: BASO % 0.6 % (0.0-1.0); EOS # 0.2 10^3/uL (0.0-0.5); EOS % 3.2 % (0.0-3.0); HEMATOCRIT 45.5 % (42.0-52.0); HEMOGLOBIN 14.8 g/dl (13.5-17.5); LYMPH # 1.2 10^3/uL (1.5-5.0); LYMPH % 24.8 % (24.0-44.0); MEAN CORPUSCULAR HGB CONC 32.5 g/dl (32.0-36.5); MEAN CORPUSCULAR VOLUME 95.4 fl (80.0-96.0); MONO # 0.3 10^3/uL (0.0-0.8); NEUTROPHILS # 3.2 10^3/uL (1.5-8.5); PLATELET COUNT, AUTOMATED 146 10^3/uL (150-450); RED BLOOD COUNT 4.77 10^6/uL (4.30-6.10)
[2021-01-03 08:25] LABS: BLOOD UREA NITROGEN 12 MG/DL (7-18); CALCIUM LEVEL 7.7 MG/DL (8.5-10.1); CARBON DIOXIDE LEVEL 26 MEQ/L (21-32); CHLORIDE LEVEL 112 MEQ/L (98-107); CREATININE FOR GFR 0.54 MG/DL (0.70-1.30); GLOMERULAR FILTRATION RATE > 60.0 (>60); GLUCOSE, FASTING 79 MG/DL (70-100); MAGNESIUM LEVEL 2.5 MG/DL (1.8-2.4); SODIUM LEVEL 139 MEQ/L (136-145)
[2021-01-03] MEDS: ENOXAPARIN 40MG/0.4ML SYRINGE (J1650 PER 10MG) SC SCH ×2 (09:00→09:41)
[2021-01-03] MEDS ORDERED: LORazepam 0.5 MG TAB PO PRN (09:30)
[2021-01-03] MEDS ORDERED: haloperidoL 0.5 MG TAB PO SCH (09:40)
--- NOTE | 2021-01-03 09:53 | IPNPDOC ---
Text Note Date of Service The patient was seen on 01/03/21. NOTE Subjective: Patient is a 45-year-old male with a PMHx of Schizophrenia, Depression, Polysubstance abuse , who presented to the ER after he found wandering the streets. Patient was intoxicated and rambling incoherently. Patient was initially planned to be transitioned to the inpatient mental health. However, his QTC was noted to be prolonged. Patient was admitted to the hospitalist service for further evaluation and treatment. Patient was seen and examined at the bedside. Patient was refusing lab work this morning - we have convinced him that this is required and he was willing to get a blood sample collected. He is oriented to person, place, unsure of the date or the president. Reports that he's not in any pain. Denies any nausea, vomiting. R eports that he's hungry, has not spent any chest pain, shortness breath or palpitations. Objective: Vitals (See below) General: Lying in bed, no acute distress, comfortable, patient is oriented to person and place; unsure of time and president HEENT: NC, AT CVS: +S1S2 Lungs: Air entry is fair bilaterally without any auscultated crackles, wheezing or rhonchi Abdomen: Again, his abdomen is soft. There is no distention or tenderness in any 4 quadrants Extremities: Lower extremities are free of any edema Assessment and plan: s/p Prolonged QTC on EKG - EKG this morning has revealed a QTc of 473; much improved compared to prior - c/w telemetry monitoring while inpatient - Electrolytes within normal limits; hyperkalemia is in a hemolyzed sample - c/w IV fluid hydration while inpatient Acute metabolic encephalopathy - Oriented to person, place - still no oriented to time / president - No focal neurologic deficits - CT head 01/02: No acute findings. - c/w hydration - Psychiatry on consultation; discussed case today - will re-evaluate this afternoon Questionable pneumatosis in cecum - Again. Patient's abdomen is benign without any tenderness noted - Hemodynamically stable and afebrile - No leukocytosis or lactic acidosis - CT abdomen / pelvis 01/01: Question pneumatosis coli of the cecum versus artifact from air bubbles trapped between bowel lumen content and bowel wall Pneumatosis coli can be benign or life-threatening. By CT there is no bowel wall thickening to suggest ischemia or inflammation. There is no inflammation or s tranding into the mesentery. There is no pneumoperitoneum or ascites. Clinical correlation is recommended. Bibasilar opacities in the visualized lung suárez these could be acute, chronic or combination. - Discussed with surgery about imaging findings; likely artifact - Will continue to monitor Schizophrenia and depression - Will continue to hold some psychiatric medications given initially he had prolonged QTc - Discussed with Psychiatry; QTc has normalized; will introduce some medications; low dose Seroquel (re: Adverse reaction to Haldol / Ativan caused to much sedation) Polysubstance drug abuse - UDS positive for multiple medications - Patient takes methadone at home; will hold for now - no evidence of withdrawal currently History of hepatitis C - Hepatitis C positive - RNA levels pending DVT prophylaxis - c/w Lovenox Disposition: - Awaiting clinical improvement - Called and updated Family / Mother / HCP: [phone] VS,Fishbone, I+O VS, Fishbone, I+O Laboratory Tests 01/03/21 07:50 Vital Signs Date Time Temp Pulse Resp B/P (MAP) Pulse Ox O2 Delivery O2 Flow Rate FiO2 01/03/21 08:00 97.3 44 17 122/81 (95) 93 Room Air I&O- Last 24 Hours up to 6 AM 01/03/21 06:00 Intake Total 2550 ml Output Total 0 ml Balance 2550 ml GABRIELA PUGH MD Jan 03, 2021 09:43
[2021-01-03] MEDS ORDERED: QUEtiapine FUMARATE 12.5 MG HALF-TAB PO SCH (11:00)
[2021-01-03 12:00] VITALS: BP 126/82
[2021-01-03 16:00] VITALS: BP 125/78
[2021-01-03 20:00] VITALS: BP 137/83
[2021-01-04] VITALS (8 sets, daily range): BP systolic 140–158; BP diastolic 86–98; O2SAT 78–93
[2021-01-04] MEDS: ACETAMINOPHEN TAB 650MG DOSE (2X325MG) PO PRN (03:58)
[2021-01-04] MEDS: SLF 3 ML SYR IV SCH ×3 (05:25→20:21)
[2021-01-04] MEDS: ENOXAPARIN 40MG/0.4ML SYRINGE (J1650 PER 10MG) SC SCH (08:03)
[2021-01-04 08:05] LABS: BASO % 0.5 % (0.0-1.0); EOS # 0.2 10^3/uL (0.0-0.5); EOS % 3.4 % (0.0-3.0); HEMATOCRIT 44.5 % (42.0-52.0); HEMOGLOBIN 14.3 g/dl (13.5-17.5); LYMPH # 1.1 10^3/uL (1.5-5.0); LYMPH % 25.3 % (24.0-44.0); MEAN CORPUSCULAR HGB CONC 32.1 g/dl (32.0-36.5); MEAN CORPUSCULAR VOLUME 96.3 fl (80.0-96.0); MONO # 0.3 10^3/uL (0.0-0.8); MONO % 5.7 % (2.0-8.0); NEUTROPHILS # 2.8 10^3/uL (1.5-8.5); NEUTROPHILS % 64.6 % (36.0-66.0); PLATELET COUNT, AUTOMATED 141 10^3/uL (150-450); RED BLOOD COUNT 4.62 10^6/uL (4.30-6.10); WHITE BLOOD COUNT 4.4 10^3/uL (4.0-10.0)
[2021-01-04] MEDS ORDERED: PILL CUTTER 1 EACH XX PRN (08:30)
[2021-01-04 08:43] LABS: BLOOD UREA NITROGEN 7 MG/DL (7-18); CALCIUM LEVEL 7.9 MG/DL (8.5-10.1); CARBON DIOXIDE LEVEL 24 MEQ/L (21-32); CHLORIDE LEVEL 111 MEQ/L (98-107); CREATININE FOR GFR 0.53 MG/DL (0.70-1.30); GLOMERULAR FILTRATION RATE > 60.0 (>60); GLUCOSE, FASTING 91 MG/DL (70-100); MAGNESIUM LEVEL 2.2 MG/DL (1.8-2.4); POTASSIUM SERUM 4.7 MEQ/L (3.5-5.1); SODIUM LEVEL 140 MEQ/L (136-145)
[2021-01-04] MEDS ORDERED: METHADONE 10 MG TAB (S0109) PO SCH (09:00)
[2021-01-04] MEDS: NS 1,000 ML IV SCH ×2 (09:03→18:56)
--- NOTE | 2021-01-04 10:02 | IPNPDOC ---
Text Note Date of Service The patient was seen on 01/04/21. NOTE Subjective: Patient is a 45-year-old male with a PMHx of Schizophrenia, Depression, Polysubstance abuse , who presented to the ER after he found wandering the streets. Patient was intoxicated and rambling incoherently. Patient was initially planned to be transitioned to the inpatient mental health. However, his QTC was noted to be prolonged. Patient was admitted to the hospitalist service for further evaluation and treatment. Patient was seen and examined at the bedside. Patient appears to be agitated this morning, he is asking about his medications. Patient denies any chest pain, shortness breath, palpitations. Has not experience any nausea, vomiting, abdominal pain or diarrhea. Patient was able to count for about from 1-20 and 20 to 1. Objective: Vitals (See below) General: Lying in bed, appears to be comfortable, awake and alert, oriented to person, place, not to time HEENT: NC, AT CVS: +S1S2 Lungs: Auscultation is free of any rhonchi, crackles or wheezing Abdomen: Abdomen remains benign, soft, nondistended and nontender Extremities: No edema appreciated Assessment and plan: s/p Prolonged QTC on EKG - EKG repeated this morning; QTc of 460s - c/w telemetry monitoring while inpatient - No electrolyte abnormalities noted this morning - c/w IV fluid hydration while inpatient s/p Acute metabolic encephalopathy - Oriented to person, place - still no oriented to time / president - Patient appears to have good attention - No focal neurologic deficits - CT head 01/02: No acute findings. - c/w hydration - Psychiatry on consultation; awaiting transition to [facility] Questionable pneumatosis in cecum - Again, patient's abdomen is benign without any tenderness noted - Hemodynamically stable and afebrile - No leukocytosis or lactic acidosis - CT abdomen / pelvis 01/01: Question pneumatosis coli of the cecum versus artifact from air bubbles trapped between bowel lumen content and bowel wall Pneumatosis coli can be benign or life-threatening. By CT there is no bowel wall thickening to suggest ischemia or inflammation. There is no inflammation or stranding into the mesentery. There is no pneumoperitoneum or ascites. Clinical correlation is recommended. Bibasilar opacities in the visualized lung suárez these could be acute, chronic or combination. - Discussed with surgery about imaging findings; likely artifact - Will continue to monitor Schizophrenia and depression - Will continue to hold some psychiatric medications given initially he had prolonged QTc - Discussed with Psychiatry; will start risperidone 0.25 BID Polysubstance drug abuse - UDS positive for multiple medications - Patient takes methadone at home; will resume at reduced dose for now History of hepatitis C - Hepatitis C positive - RNA levels positive - Will need outpatient follow up with Infectious disease for treatment DVT prophylaxis - c/w Lovenox Disposition: - Awaiting clinical improvement - Mother / HCP: [phone] VS,Fishbone, I+O VS, Fishbone, I+O Laboratory Tests 01/04/21 07:51 Vital Signs Date Time Temp Pulse Resp B/P (MAP) Pulse Ox O2 Delivery O2 Flow Rate FiO2 01/04/21 09:00 78 Room Air 01/04/21 07:18 97.2 54 18 140/86 (104) I&O- Last 24 Hours up to 6 AM 01/04/21 06:00 Intake Total 2760 ml Output Total 575 ml Balance 2185 ml GABRIELA PUGH MD Jan 04, 2021 10:02
[2021-01-04] MEDS: risperiDONE 0.5 MG TAB PO SCH ×2 (10:29→20:21)
--- NOTE | 2021-01-04 10:55 | ECGEPIP ---
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 Order Number: [id number] Reading MD: Zachary Laws Measurements Intervals [place] Rate: 46 P: 22 OR: 170 QRS: -28 QRSD: 82 T: -2 QT: 582 QTc: 509 Interpretive Statements Sinus bradycardia Minimal voltage criteria for LVH, may be normal variant ( R in aVL ) Cannot rule out Anterior infarct , age undetermined vs lead misplacement Prolonged QT Compared to prior tracings (3) in the system, heart rate is now slower and there w was better R wave progression Electronically Signed on 01-04-2021 10:55:15 EDT by Zachary Laws
--- NOTE | 2021-01-04 11:01 | ECGEPIP ---
[facility] Test Date: 2021-01-03 Pat Name: ONI GONSALEZ Department: Room: [place] [address] Gender: Male Spout Positioner: vern : 1975 Requested By: GABRIELA PUGH Order Number: [id number] Reading MD: Zachary Laws Measurements Intervals [place] Rate: 44 P: 26 [place]: 174 QRS: -23 QRSD: 80 T: -7 QT: 554 QTc: 473 Interpretive Statements Poor data quality, interpretation may be adversely affected Marked sinus bradycardia Last tracing on 01/02/21, 21:12. Heart rate is slower and there is now better R w wave progression. Electronically Signed on 01-04-2021 11:00:48 EDT by Zachary Laws
--- NOTE | 2021-01-04 11:06 | ECGEPIP ---
[facility] Test Date: 2021-01-03 Pat Name: ONI GONSALEZ Department: Room: [place] [address] Gender: Male Financial Accounting Analyst: vern : 1975 Requested By: GABRIELA PUGH Order Number: [id number] Reading MD: Zachary Laws Measurements Intervals [place] Rate: 56 P: 29 [place]: 182 QRS: -30 QRSD: 76 T: -6 QT: 562 QTc: 542 Interpretive Statements Poor data quality, interpretation may be adversely affected Sinus bradycardia Left axis deviation Prolonged QT Compared to prior tracings in the system, no significant changes Electronically Signed on 01-04-2021 11:06:18 EDT by Zachary Laws
--- NOTE | 2021-01-04 11:08 | ECGEPIP ---
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
--- NOTE | 2021-01-04 11:43 | ECGEPIP ---
[facility] Test Date: 2021-01-04 Pat Name: ONI GONSALEZ Department: Room: [place] [address] Gender: Male Net Software Engineer: vern : 1975 Requested By: GABRIELA PUGH Order Number: [id number] Reading MD: Zachary Laws Measurements Intervals [place] Rate: 52 P: 27 [place]: 168 QRS: -22 QRSD: 74 T: 1 QT: 502 QTc: 466 Interpretive Statements Sinus bradycardia with occasional premature ventricular complexes and premature atrial complexes Inferior infarct, age undetermined vs artifact Compared to prior tracings in the system, minimal changes Electronically Signed on 01-04-2021 11:42:52 EDT by Zachary Laws
[2021-01-05] MEDS: NS 1,000 ML IV SCH (05:31)
[2021-01-05] MEDS: SLF 3 ML SYR IV SCH ×3 (05:32→22:00)
[2021-01-05 06:00] VITALS: BP 156/95
--- NOTE | 2021-01-05 08:48 | IPNPDOC ---
Text Note Date of Service The patient was seen on 01/05/21. NOTE Subjective: Patient is a 45-year-old male with a PMHx of Schizophrenia, Depression, Polysubstance abuse , who presented to the ER after he found wandering the streets. Patient was intoxicated and rambling incoherently. Patient was initially planned to be transitioned to the inpatient mental health. However, his QTC was noted to be prolonged. Patient was admitted to the hospitalist service for further evaluation and treatment. Patient was seen and examined at the bedside. Patient was seen sitting up at the edge of the bed, appears comfortable. Denies any chest pain, shortness of breath, palpitations. Has not experience any nausea, vomiting or diarrhea. Has been out of bed ambulating to bathroom without any difficulty. Objective: Vitals (See below) General: Sitting up at the edge of the bed, appears comfortable, not in any acute distress, is awake, alert and oriented person and place, not to time HEENT: NC, AT CVS: +S1S2 Lungs: There is fair air entry bilaterally without evidence of wheezing, crackles or rhonchi Abdomen: Abdomen is soft, nondistended, nontender Extremities: Lower extremity do not reveal any pitting edema Assessment and plan: s/p Prolonged QTC on EKG - EKG again this morning, reveals normalized QTC of 444 - Will discontinue telemetry monitoring while inpatient - No electrolyte abnormalities noted this morning - Will DC IV fluid hydration while inpatient - Patient has been medically optimized for transitioned inpatient mental health unit s/p Acute metabolic encephalopathy - Oriented to person, place / appears to have good attention - No focal neurologic deficits - CT head 01/02: No acute findings. - c/w hydration - Psychiatry on consultation - discussed case, then this morning - Psychiatry will evaluate today and transition to inpatient mental health unit once bed is available Questionable pneumatosis in cecum - Does not experience any nausea, vomiting. Has had regular bowel movements and has been tolerating his diet - Abdomen remains benign without any appreciated tenderness - Hemodynamically stable and afebrile - No leukocytosis or lactic acidosis - CT abdomen / pelvis 01/01: Question pneumatosis coli of the cecum versus artifact from air bubbles trapped between bowel lumen content and bowel wall Pneumatosis coli can be benign or life-threatening. By CT there is no bowel wall thickening to suggest ischemia or inflammation. There is no inflammation or stranding into the mesentery. There is no pneumoperitoneum or ascites. Clinical correlation is recommended. Bibasilar opacities in the visualized lung suárez these could be acute, chronic or combination. - Discussed with surgery about imaging findings; likely artifact - Will continue to monitor Schizophrenia and depression - Will continue to hold some psychiatric medications given initially he had prolonged QTc - c/w risperidone 0.25 BID - as discussed with psychiatry - Discussed with Psychiatry; will evaluate today Polysubstance drug abuse - UDS positive for multiple medications - Patient takes methadone at home (135mg); will increase dose again today from 70 to 100mg History of hepatitis C - Hepatitis C positive - RNA levels positive - Will need outpatient follow up with Infectious disease for treatment DVT prophylaxis - c/w Lovenox Disposition: - Will be evaluated by psychiatry today and transitioned to the inpatient mental health unit - Mother / HCP: [phone] VS,Fishbone, I+O VS, Fishbone, I+O Vital Signs Date Time Temp Pulse Resp B/P (MAP) Pulse Ox O2 Delivery O2 Flow Rate FiO2 01/05/21 06:00 98.6 60 18 156/95 (115) 95 Room Air I&O- Last 24 Hours up to 6 AM 01/05/21 06:00 Intake Total 3520 ml Output Total 1026 ml Balance 2494 ml GABRIELA PUGH MD Jan 05, 2021 08:48
[2021-01-05] MEDS: ENOXAPARIN 40MG/0.4ML SYRINGE (J1650 PER 10MG) SC SCH (09:00)
[2021-01-05] MEDS: risperiDONE 0.5 MG TAB PO SCH ×2 (09:56→22:01)
[2021-01-05] MEDS: METHADONE 10 MG TAB (S0109) PO SCH (09:56)
[2021-01-05 11:07] LABS: BASO % 0.7 % (0.0-1.0); EOS # 0.2 10^3/uL (0.0-0.5); EOS % 3.3 % (0.0-3.0); HEMATOCRIT 47.3 % (42.0-52.0); HEMOGLOBIN 15.8 g/dl (13.5-17.5); LYMPH # 0.8 10^3/uL (1.5-5.0); LYMPH % 14.1 % (24.0-44.0); MEAN CORPUSCULAR HEMOGLOBIN 30.6 pg (27.0-33.0); MEAN CORPUSCULAR HGB CONC 33.4 g/dl (32.0-36.5); MEAN CORPUSCULAR VOLUME 91.7 fl (80.0-96.0); MONO # 0.3 10^3/uL (0.0-0.8); MONO % 4.5 % (2.0-8.0); NEUTROPHILS # 4.5 10^3/uL (1.5-8.5); NEUTROPHILS % 77.1 % (36.0-66.0); PLATELET COUNT, AUTOMATED 152 10^3/uL (150-450); RED BLOOD COUNT 5.16 10^6/uL (4.30-6.10); WHITE BLOOD COUNT 5.8 10^3/uL (4.0-10.0)
[2021-01-05 11:35] LABS: BLOOD UREA NITROGEN 6 MG/DL (7-18); CALCIUM LEVEL 9.4 MG/DL (8.5-10.1); CARBON DIOXIDE LEVEL 28 MEQ/L (21-32); CHLORIDE LEVEL 105 MEQ/L (98-107); GLOMERULAR FILTRATION RATE > 60.0 (>60); GLUCOSE, FASTING 112 MG/DL (70-100); MAGNESIUM LEVEL 2.4 MG/DL (1.8-2.4); POTASSIUM SERUM 4.1 MEQ/L (3.5-5.1); SODIUM LEVEL 138 MEQ/L (136-145)
--- NOTE | 2021-01-05 13:05 | MHCR ---
[facility] CONSULTATION DATE: 01/05/2021 IDENTIFYING DATA: He is a 45-year-old male with history of schizophrenia and polysubstance dependence who was admitted for bizarre behavior, wandering in the street, intoxicated, speaking incoherently. Patient's QTC interval was prolonged and he was kept on the medical side. Consult was called to evaluate him for his depression and possible overdose. HISTORY OF PRESENT ILLNESS: Patient was evaluated. Staff was consulted. Patient has a long history of mental illness. He has been diagnosed with schizophrenia. He has had more than 12 psychiatric hospitalizations. He was admitted to [facility] in 2016. He had several inpatient drug rehabilitation treatments. He attempted suicide several times by trying to hang himself or by overdosing on pills. Patient was positive for opioids, methadone, cannabinoids and cocaine at the time of admission. Currently, he is depressed and has some auditory hallucinations. Reports the hallucinations have been there and have never gone away. MENTAL STATUS EXAMINATION: He is alert, cooperative. Mood is depressed. Affect is mood congruent. Speech: Rambling, however, goal-directed. Denies any visual hallucinations. Continues to have some auditory hallucinations, which patient ignores. His insight and judgment are limited. Memory: Immediate, remote, recent are good. He is oriented to time, place and person. His attention is good. DIAGNOSES: 1. Schizophrenia, paranoid type. 2. Polysubstance dependence. 3. Substance induced psychotic disorder. PLAN: Transfer him to inpatient mental health unit ([facility]) once patient is medically stable. I will increase his risperidone 0.5mg twice daily and add Remeron 7.5 mg at night. MTDD
[2021-01-05 14:00] VITALS: BP 153/98
[2021-01-05] MEDS ORDERED: MIRTAZAPINE 7.5MG PER 1/2 TABLET PO SCH (21:00)
[2021-01-05 22:00] VITALS: BP 154/82
--- NOTE | 2021-01-05 23:18 | ECGEPIP ---
[facility] Test Date: 2021-01-05 Pat Name: ONI GONSALEZ Department: Room: [place] [address] Gender: Male Glue Size Machine Operator: nikos : 1975 Requested By: GABRIELA PUGH Order Number: [id number] Reading MD: Zachary Laws Measurements Intervals [place] Rate: 51 P: 24 MT: 168 QRS: -22 QRSD: 76 T: -6 QT: 482 QTc: 444 Interpretive Statements Sinus bradycardia with sinus arrhythmia. Possible A-Paced but may be artifactual CONSIDER LEFT ATRIAL ABNORMALITY Compared to prior tracings (2) in the system Electronically Signed on 01-05-2021 23:17:45 EDT by Zachary Laws
[2021-01-06] MEDS: SLF 3 ML SYR IV SCH (02:19)
[2021-01-06 06:00] VITALS: BP 142/91
[2021-01-06 06:52] LABS: BASO % 0.6 % (0.0-1.0); EOS # 0.3 10^3/uL (0.0-0.5); EOS % 4.8 % (0.0-3.0); HEMATOCRIT 47.4 % (42.0-52.0); HEMOGLOBIN 15.9 g/dl (13.5-17.5); LYMPH # 1.6 10^3/uL (1.5-5.0); MEAN CORPUSCULAR HEMOGLOBIN 30.3 pg (27.0-33.0); MEAN CORPUSCULAR HGB CONC 33.5 g/dl (32.0-36.5); MEAN CORPUSCULAR VOLUME 90.3 fl (80.0-96.0); MONO # 0.4 10^3/uL (0.0-0.8); MONO % 6.6 % (2.0-8.0); NEUTROPHILS # 4.1 10^3/uL (1.5-8.5); NEUTROPHILS % 62.5 % (36.0-66.0); PLATELET COUNT, AUTOMATED 174 10^3/uL (150-450); RED BLOOD COUNT 5.25 10^6/uL (4.30-6.10); WHITE BLOOD COUNT 6.5 10^3/uL (4.0-10.0)
[2021-01-06 07:15] LABS: BLOOD UREA NITROGEN 9 MG/DL (7-18); CALCIUM LEVEL 9.3 MG/DL (8.5-10.1); CARBON DIOXIDE LEVEL 26 MEQ/L (21-32); CHLORIDE LEVEL 105 MEQ/L (98-107); CREATININE FOR GFR 0.58 MG/DL (0.70-1.30); GLOMERULAR FILTRATION RATE > 60.0 (>60); GLUCOSE, FASTING 80 MG/DL (70-100); MAGNESIUM LEVEL 2.2 MG/DL (1.8-2.4); POTASSIUM SERUM 3.6 MEQ/L (3.5-5.1); SODIUM LEVEL 137 MEQ/L (136-145)
[2021-01-06] MEDS ORDERED: METH10TA2 PO (08:53)
[2021-01-06] MEDS ORDERED: RISP-7 PO (08:53)
[2021-01-06] MEDS ORDERED: MIRT-62 PO (08:53)
[2021-01-06] MEDS: ENOXAPARIN 40MG/0.4ML SYRINGE (J1650 PER 10MG) SC SCH (09:00)
[2021-01-06] MEDS: METHADONE 10 MG TAB (S0109) PO SCH (09:35)
[2021-01-06] MEDS: risperiDONE 0.5 MG TAB PO SCH (09:35)
[2021-01-06] MEDS ORDERED: LORazepam 2 MG/ML VIAL IV STA (15:22)
[2021-01-06] MEDS ORDERED: LORazepam 2 MG/ML VIAL IM STA (15:24)
[2021-01-06 16:00] VITALS: BP 134/95
[2021-01-06] MEDS ORDERED: LORazepam 1 MG TAB PO PRN (16:00)
--- NOTE | 2021-01-06 17:49 | DS.PDOC ---
Discharge Summary General Date of Admission Jan 04, 2021 at 08:10 Date of Discharge 01/06/21 Discharge Summary PROCEDURES PERFORMED DURING STAY: [None]. ADMITTING DIAGNOSES: #psychosis #prolonged QT interval SECONDARY DIAGNOSES: Schizophrenia Depression Polysubstance drug abuse ? History of hepatitis C unknown if treated COMPLICATIONS/CHIEF COMPLAINT: Psychosis. HOSPITAL COURSE: This is a 45-year-old male history of schizophrenia and depression and polysubstance drug abuse. Entire history was obtained from ED staff as patient was intoxicated and rambling incoherently. He was found wandering around the streets talking to himself. Family was contacted from the ED to know if shes been taking his medications or not. Patient was going to be held in the emergency department and transferred to the inpatient mental health unit. However EKG revealed a prolonged QTC 621 and multiple drugs positive on urine drug screen. Repeat EKG after some time showed QTC had improved down to 575. It is unclear if patient try to take more for psychiatric medications resulting in the increased QTC or if he has any underlying suicidal ideation or attempt because he has any questions. Patient was admitted for observation to the medical service for telemetry monitoring once QTC has improved off of his psych medications he can be transferred to the inpatient mental health unit. DISCHARGE MEDICATIONS: Please see below. ALLERGIES: Please see below. PHYSICAL EXAMINATION ON DISCHARGE: General: NAD HEENT: NC/AT Lungs; CTA B/L HEart; +S1S2, RRR Abd: soft, NT, +BS Ext: no edema LABORATORY DATA: Please see below. ACTIVITY: [As tolerated]. DISPOSITION: [facility]. DISCHARGE INSTRUCTIONS: 1. Further direction as per [facility] 2. Recommend PCP follow up 3-5 days after discharge from [facility]. DISCHARGE CONDITION: [Stable]. TIME SPENT ON DISCHARGE: 35 minutes. Vital Signs/I&Os Vital Signs Date Time Temp Pulse Resp B/P (MAP) Pulse Ox O2 Delivery O2 Flow Rate FiO2 01/06/21 16:00 97.7 62 18 134/95 (108) 97 Room Air I&O- Last 24 Hours up to 6 AM 01/06/21 06:00 Intake Total 2000 ml Output Total 1 ml Balance 1999 ml Laboratory Data Labs 24H Laboratory Tests 2 01/06/21 06:28: Immature Granulocyte % (Auto) 0.5, Neutrophils (%) (Auto) 62.5, Lymphocytes (%) (Auto) 25.0, Monocytes (%) (Auto) 6.6, Eosinophils (%) (Auto) 4.8H, Basophils (%) (Auto) 0.6, Neutrophils # (Auto) 4.1, Lymphocytes # (Auto) 1.6, Monocytes # (Auto) 0.4, Eosinophils # (Auto) 0.3, Basophils # (Auto) 0.0, Nucleated Red Blood Cells % (auto) 0.0, Anion Gap 6L, Glomerular Filtration Rate > 60.0, Calcium Level 9.3, Magnesium Level 2.2 CBC/BMP Laboratory Tests 01/06/21 06:28 Microbiology Microbiology 01/02/21 Respiratory Virus Panel (PCR) (JORGE) - Final, Complete 01/01/21 Urine Culture - Final, Complete Discharge Medications Scheduled Methadone HCl (Methadone HCl) 10 Mg Tablet, 100 MG PO DAILY Mirtazapine (Remeron) 15 Mg Tablet, 15 MG PO QHS for Insomnia Olanzapine (Olanzapine) 5 Mg Tablet, 5 MG PO QHS for Schizophrenia Allergies Coded Allergies: chlorpromazine (Unverified Allergy, Severe, Ron, 07/12/19) Information provided by mother who cares for him. haloperidol (Verified Allergy, Intermediate, EPS/ LOCKJAW, 07/12/19) nortriptyline (Verified Allergy, Unknown, 07/09/19) FABIO CHESTER MD Jan 06, 2021 17:48
--- NOTE | 2021-01-07 00:31 | ECGEPIP ---
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
== END 2021-01-06 17:00 | DRG 776 ==
LOC: M ED 21:21 → M ED INP 01-02 04:15 → ENRESERV 01-02 12:55 → M PCU 01-02 14:20 → OBSVTOIN 01-04 08:10 → M MSPAV 01-04 11:30
PROVIDERS: ADMIT Family Medicine; ATTEND Internal Medicine
DX: F19.10 Other psychoactive substance abuse, uncomplicated (principal); G93.41 Metabolic encephalopathy; F20.9 Schizophrenia, unspecified; F32.9 Major depressive disorder, single episode, unspecified; R94.31 Abnormal electrocardiogram [ECG] [EKG]; Z79.899 Other long term (current) drug therapy; Z88.8 Allergy status to other drugs, medicaments and biological substances; B18.2 Chronic viral hepatitis C

== ENCOUNTER 2021-01-06 15:37 | Inpatient (IN) | payer MEDICAID, OTHER ==
[~2021-01-06 15:37] MED LIST changes: +BENZ-52 PO; +METH10TA2 PO; +MIRT-62 PO; +OLAN20TA14 PO; +PRAZ5CAP PO; +QUET400T PO; +RISP-7 PO; +TRAZ-189 PO
[2021-01-06] MEDS ORDERED: MAALOX 30 ML SUSP *UDC PO PRN (15:50)
[2021-01-06] MEDS ORDERED: MOM 30ML SUSPENSION UDC PO PRN (15:50)
[2021-01-06 17:54] VITALS: BP 133/95
[2021-01-06] MEDS: risperiDONE 1 MG TAB PO SCH (20:25)
[2021-01-06] MEDS: MIRTAZAPINE 15 MG TAB PO SCH (20:25)
[2021-01-06] MEDS ORDERED: NICOTINE POLACRILEX 2 MG GUM PO PRN (23:00)
[2021-01-07] MEDS: traZODone 50 MG TAB PO PRN ×2 (00:25→21:29)
[2021-01-07] MEDS: OLANZapine ORAL DISINTEGRATING TAB 5MG PO PRN ×3 (00:25→21:29)
[2021-01-07] MEDS: risperiDONE 0.5 MG TAB PO SCH (09:50)
--- NOTE | 2021-01-07 10:55 | HPEPDOC ---
[facility] Medical History & Physical Date of Admission Jan 06, 2021 Date of Service: Jan 07, [address] KING'S HISTORY AND PHYSICAL EXAMINATION NOTE JOB #[id number] HOSPITALIST WILL SIGN OFF. PLS CALL [facility] AT [phone] FOR NEW CONSULT IF NEW MEDICAL ISSUES ARISE. Vital Signs Vital Signs Date Time Temp Pulse Resp B/P (MAP) Pulse Ox O2 Delivery O2 Flow Rate FiO2 01/06/21 17:54 98.9 96 12 133/95 (108) 96 Room Air Home Medications Scheduled Methadone HCl (Methadone HCl) 10 Mg Tablet, 100 MG PO DAILY Mirtazapine (Remeron) 15 Mg Tablet, 7.5 MG PO QHS Risperidone (Risperidone) 0.5 Mg Tablet, 0.5 MG PO BID Allergies Coded Allergies: chlorpromazine (Unverified Allergy, Severe, Lockjaw, 07/12/19) Information provided by mother who cares for him. haloperidol (Verified Allergy, Intermediate, EPS/ LOCKJAW, 07/12/19) nortriptyline (Verified Allergy, Unknown, 07/09/19) A-FIB/CHADSVASC A-FIB History Current/History of A-Fib/PAF?: No Current PO Anticoag Therapy: No Age/Risk Factor Scoring CHADSVASC: CHADSVASC Response (Comments) Value Age Risk Factor Age < 65 years old 0 Gender Risk Factor Male 0 Hx of CHF No 0 Hx of HTN No 0 Hx of Stroke/TIA/or VTE No 0 Hx of Diabetes No 0 Hx of Vascular Disease No 0 Total 0 Treatment Treatment ordered: NONE BRENT KING MD Jan 07, 2021 10:55
--- NOTE | 2021-01-07 13:31 | HPE ---
[facility] HISTORY AND PHYSICAL DATE OF ADMISSION: 01/06/2021 CHIEF COMPLAINT: Schizophrenia. HISTORY OF PRESENTING ILLNESS: This is a 45-year-old male with a history of schizophrenia recently admitted to the Medical Service on 01/02 and discharged on 01/06 with past medical history significant for depression, polysubstance abuse, and schizophrenia. Was wandering the streets and was intoxicated and incoherent. In the ER, he was found to have prolonged QT on EKG and was admitted to the Hospitalist Service. Patient had no electrolyte abnormalities and was medically optimized. He was evaluated for acute metabolic encephalopathy with CT of the head which showed no acute findings. Blood work was within normal limits. He was given IV fluids. CT abdomen and pelvis done 01/01/2021 showed questionable pneumatosis coli of the cecum versus artifact from air bubbles trapped between the bowel lumen content and bowel wall. Patient had no symptoms of nausea, vomiting, fever, or chills and had regular bowel movements and tolerated his diet. Appeared to be benign. This was monitored and discussed with General Surgery at that time and thought to be artifactual. Patient was optimized, and psychiatrist recommended risperidone 0.25 b.i.d. and was transferred to the Inpatient Mental Health Unit. He was kept on his methadone for his polysubstance abuse. Urine drug screen on admission was positive for multiple medications. Patient has a history of hepatitis C with RNA levels positive to follow up with Infectious Disease as outpatient. He currently is withdrawn, not answering any questions during this interview. PAST MEDICAL HISTORY: As above. PAST SURGICAL HISTORY: As above. SOCIAL HISTORY/FAMILY HISTORY: Could not be obtained due to patient not being cooperative and not speaking to me this morning. HOSPITAL MEDICATIONS: 1. Risperidone 0.5 q.a.m. 2. Nicotine 4 mg p.o. q.4 as needed for withdrawal. 3. Olanzapine 5 mg q.4 as needed for agitation. 4. Risperidone 1 mg at bedtime. 5. Mirtazapine 15 mg at bedtime. 6. Mylanta 30 mL p.o. q.4 as needed for heartburn. 7. Milk of Magnesia 30 mL daily as needed for constipation. 8. Tylenol 650 q.6 as needed for headache. 9. Trazodone 50 mg at bedtime as needed for insomnia. PHYSICAL EXAMINATION: VITAL SIGNS: Temperature 98.9, pulse 96, respiratory rate 12, blood pressure 133/95, 96% on room air. GENERAL: Patient is withdrawn, not answering questions, has his eyes closed. NECK: He has no JVD. Does not cooperative with checking for thyromegaly. HEENT: He has dry lips. Would not open his mouth to be examined. LUNGS: Clear to auscultation. No wheezing, rales, or rhonchi. HEART: S1 and S2, sinus rhythm. ABDOMEN: Soft, nontender, nondistended. Positive bowel sounds in all four quadrants. EXTREMITIES: No cyanosis, clubbing, or any pitting edema. LABORATORY DATA: The 01/06 CBC and metabolic panel have all been reviewed. Liver function tests have not been repeated since 01/02/2021. ASSESSMENT/PLAN: This is a 45-year-old male admitted to the Inpatient Mental Health Unit due to schizophrenia. Previously admitted to the Medical Service January 04 through January 06 with acute metabolic encephalopathy and prolonged QT interval. CT showed pneumatosis but likely artifactual. IMPRESSION: 1. Schizophrenia managed by primary team. 2. Abnormal EKG with prolonged QT. Monitor with serial EKGs. Adjust medications as needed. 3. Abnormal CT abdomen artifactual. Hospitalist will sign off. Please re-consult if new acute medical issues occur. CHAVAD
[2021-01-07] MEDS: METHADONE 10 MG TAB (S0109) PO SCH (14:51)
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
[2021-01-07 16:35] VITALS: BP 119/81
[2021-01-07] MEDS: MIRTAZAPINE 15 MG TAB PO SCH (21:29)
[2021-01-07] MEDS: risperiDONE 1 MG TAB PO SCH (21:29)
[2021-01-07] MEDS ORDERED: traZODone 50 MG TAB PO ONE (22:30)
[2021-01-07] MEDS: hydrOXYzine 50 MG TAB PO PRN (22:42)
--- NOTE | 2021-01-08 00:04 | ECGEPIP ---
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
[2021-01-08] MEDS: risperiDONE 0.5 MG TAB PO SCH (08:21)
[2021-01-08] MEDS: METHADONE 10 MG TAB (S0109) PO SCH (08:21)
[2021-01-08] MEDS: NICOTINE 21MG/24HR 1 EA TRANSDERMAL TD SCH (09:30)
[2021-01-08] MEDS: hydrOXYzine 50 MG TAB PO PRN ×2 (10:27→20:22)
[2021-01-08] MEDS: OLANZapine ORAL DISINTEGRATING TAB 5MG PO PRN ×2 (13:02→20:25)
--- NOTE | 2021-01-08 16:09 | MHIPNPDOC ---
[facility] Progress Note Progress Note DATE OF SERVICE: 01/08/21 HISTORY: Patient is a 45 -year-old Single, Disabled, Unemployed, Domiciled, , male, who was found at [place] by a friend acting bizarrely and was brought home where his mother then called 911. She reports that he was not talking coherently, his eyes were bulging and that he was breathing very heavily and his heart was racing. He was initially transferred to a medical unit for a prolonged QTc of 621 and he was positive for Opiates, Cocaine, Cannabis and Methadone. At this time he is admitted to Psychiatry for Unspecified Psychotic Disorder. Received collateral information from patient's Mom who reports that patient has a long history of Polysubstance Use, Schizophrenia with multiple admissions to this facility. He has had multiple admissions to this facility, previously diagnosed with Schizophrenia, Polysubstance Use and Psychosis. VITAL SIGNS: See below. CURRENT MEDICATIONS: See below. MENTAL STATUS EXAMINATION: Patient is a 45 -year-old Single, Disabled, Unemployed, Domiciled, , male, who was found at [place] by a friend acting bizarre and delusional. He is admitted to psychiatry after he was medically stabilized on medicine for a prolonged QTc/and abnormal labs Speech: Monosyllabic, slurred, rambling at times Language skills are impaired Thought processes including: slowed Thought content: denies depression and anxiety. Denies suicidal/homicidal ideation, planning or intent. Paranoia, Somatic preoccupations, Dichotomous Abstract reasoning, and computation: Impaired Description of associations: appears to be somatic/med-seeking Description of abnormal or psychotic thoughts: mildly blocked/blunted Judgment: fair Insight: fair Orientation: alert and oriented to person, place, time and situation Recent and remote memory: intact Attention span and concentration: good Language: expansive Fund of knowledge: average Mood: Blocked Affect "states I am depressed because I live alone": Blunted affect DIAGNOSES: Unspecified schizophrenia and other psychotic disorders Rule out Stimulant Induced Psychotic Disorder Schizophrenia disorder per history Opiate use disorder Cannabis use disorder Nicotine use disorder Alcohol use disorder Methamphetamine use disorder per history History of heroin IV use ASSESSMENT: Patient appears to be quite blocked this morning, having trouble speaking a full and clear sentence. He has slurred speech, I have repeated the reasons why he was admitted and why he needs to continue his hospitalization as he is not fully alert and oriented in this morning's interview. Patient continued to have an prolonged QTc and the reinstatement of Olanzapine is delayed until this QTc is within normal range. Mother reports that without a antipsychotic, he fully decompensates. Patient reported that he has depression and is often alone but wants to return home because of his pets. States that he has a long history of Schizophrenia and was first dx'd when he was 15 or 16 years old and states that he also had his first overdose at that time, and was using to keep his Schizophrenia symptoms minimal. MANAGEMENT PLAN: Continue all medications as ordered. Mother is hopeful that he can restart Olanzapine. At this time, due to EKG will refrain from ordering or increasing antipsychotic medication TIME SPENT: 25 minutes. Vital Signs Vital Signs Date Time Temp Pulse Resp B/P (MAP) Pulse Ox O2 Delivery O2 Flow Rate FiO2 01/07/21 16:35 97.4 60 18 119/81 (94) 98 Room Air Current Medications Current Medications Medications (Trade) Dose Ordered Sig/Casimiro Route PRN Reason Start Time Stop Time Status Last Admin Dose Admin Acetaminophen (Tylenol Tab) 650 mg Q6HP PRN PO HEADACHE or DISCOMFORT 01/06/21 15:50 Al Hydrox/Mg Hydrox/Simethicone (Mylanta) 30 ml Q4HP PRN PO HEARTBURN/INDIGESTION 01/06/21 15:50 Home Med (Med Rec Complete!) ASDIRECTED XX 01/06/21 17:20 01/06/21 17:24 DC Hydroxyzine HCl (Atarax) 50 mg Q6HP PRN PO anxiety 01/07/21 22:30 01/08/21 10:27 Magnesium Hydroxide (Milk Of Magnesia) 30 ml DAILYPRN PRN PO CONSTIPATION 01/06/21 15:50 Methadone HCl (Dolophine) 100 mg DAILY PO 01/07/21 09:00 01/08/21 08:21 Mirtazapine (Remeron) 15 mg QHS PO 01/06/21 21:00 01/07/21 21:29 Nicotine (Nicoderm Cq 21mg) 1 patch DAILY TD 01/08/21 09:00 01/08/21 09:30 Nicotine (Nicorette) 4 mg Q4HP PRN PO NICOTINE WITHDRAWAL 01/06/21 23:00 01/08/21 09:17 DC Olanzapine (ZyPREXA ZYDIS) 5 mg Q4HP PRN PO AGITATION 01/06/21 22:35 01/08/21 08:50 DC 01/07/21 21:29 Olanzapine (ZyPREXA ZYDIS) 5 mg Q6HP PRN PO ANXIETY/AGITATION 01/08/21 08:50 01/08/21 13:02 Risperidone (RisperDAL) 0.5 mg QAM PO 01/07/21 09:00 01/08/21 08:21 Risperidone (RisperDAL) 1 mg QHS PO 01/06/21 21:00 01/07/21 21:29 Trazodone HCl (Desyrel) 50 mg QHSP PRN PO INSOMNIA 01/06/21 15:50 01/07/21 21:29 Allergies Coded Allergies: chlorpromazine (Unverified Allergy, Severe, Risa, 07/12/19) Information provided by mother who cares for him. haloperidol (Verified Allergy, Intermediate, EPS/ RISA, 07/12/19) nortriptyline (Verified Allergy, Unknown, 07/09/19) WOLF RO NP Jan 08, 2021 15:53
[2021-01-08 18:34] VITALS: BP 110/64
[2021-01-08] MEDS: risperiDONE 1 MG TAB PO SCH (20:22)
[2021-01-08] MEDS: MIRTAZAPINE 15 MG TAB PO SCH (20:22)
[2021-01-08] MEDS: traZODone 50 MG TAB PO PRN (20:23)
[2021-01-09] MEDS: hydrOXYzine 50 MG TAB PO PRN ×2 (03:14→12:00)
[2021-01-09] MEDS: OLANZapine ORAL DISINTEGRATING TAB 5MG PO PRN ×2 (03:14→15:36)
[2021-01-09] MEDS: ACETAMINOPHEN TAB 650MG DOSE (2X325MG) PO PRN (03:15)
[2021-01-09 06:34] VITALS: BP 110/65
[2021-01-09] MEDS: METHADONE 10 MG TAB (S0109) PO SCH (09:14)
[2021-01-09] MEDS: NICOTINE 21MG/24HR 1 EA TRANSDERMAL TD SCH (09:14)
[2021-01-09] MEDS: risperiDONE 0.5 MG TAB PO SCH (09:14)
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
[2021-01-09 16:15] VITALS: BP 115/80
[2021-01-09] MEDS: traZODone 50 MG TAB PO PRN (21:10)
[2021-01-09] MEDS: risperiDONE 1 MG TAB PO SCH (21:10)
[2021-01-09] MEDS: MIRTAZAPINE 15 MG TAB PO SCH (21:10)
[2021-01-10] MEDS: hydrOXYzine 50 MG TAB PO PRN ×3 (01:26→21:18)
[2021-01-10] MEDS: METHADONE 10 MG TAB (S0109) PO SCH (09:53)
[2021-01-10] MEDS: NICOTINE 21MG/24HR 1 EA TRANSDERMAL TD SCH (09:53)
[2021-01-10] MEDS: risperiDONE 0.5 MG TAB PO SCH (09:53)
[2021-01-10 16:11] VITALS: BP 130/72
[2021-01-10] MEDS: OLANZapine ORAL DISINTEGRATING TAB 5MG PO PRN (17:23)
--- NOTE | 2021-01-10 18:00 | MHIPNPDOC ---
[facility] Progress Note Progress Note DATE OF SERVICE: 01/10/21 HISTORY: Patient is a 45 -year-old Single, Disabled, Unemployed, Domiciled, , male, who was found at [facility] by a friend acting bizarrely and was brought home where his mother then called 911. She reports that he was not talking coherently, his eyes were bulging and that he was breathing very heavily and his heart was racing. He was initially transferred to a medical unit for a prolonged QTc of 621 and he was positive for Opiates, Cocaine, Cannabis and Methadone. At this time he is admitted to Psychiatry for Unspecified Psychotic Disorder. Received collateral information from patient's Mom who reports that patient has a long history of Polysubstance Use, Schizophrenia with multiple admissions to this facility. He has had multiple admissions to this facility, previously diagnosed with Schizophrenia, Polysubstance Use and Psychosis. VITAL SIGNS: See below. CURRENT MEDICATIONS: See below. MENTAL STATUS EXAMINATION: Patient is a 45 -year-old Single, Disabled, Unemployed, Domiciled, , male, who was found at [facility] by a friend acting bizarre and delusional. He is admitted to psychiatry after he was medically stabilized on medicine for a prolonged QTc/and abnormal labs Speech: spontaneous, fluent, normal in r/t/v Language skills are intact Thought processes including: linear an coherent Thought content: denies depression and anxiety. Denies suicidal/homicidal ideation, planning or intent. Abstract reasoning, and computation: Impaired Description of associations: denies Description of abnormal or psychotic thoughts: Denies TAV hallucinations ( but he says he had them before) denies thought delusions Judgment: improving Insight: fair Orientation: alert and oriented to person, place, time and situation Recent and remote memory: he says is coming back Attention span and concentration: fair Language: fair Fund of knowledge: average Mood: "alright": Blunted/Flat affect DIAGNOSES: Unspecified schizophrenia and other psychotic disorders Rule out Stimulant Induced Psychotic Disorder Schizophrenia disorder per history Opiate use disorder Cannabis use disorder Nicotine use disorder Alcohol use disorder Methamphetamine use disorder per history History of heroin IV use ASSESSMENT: The patient says that he is improving, he says the medications he was taking before, were not working. will continue to monitor MANAGEMENT PLAN: Continue all medications as ordered. TIME SPENT: 25 minutes. Vital Signs Vital Signs Date Time Temp Pulse Resp B/P (MAP) Pulse Ox O2 Delivery O2 Flow Rate FiO2 01/10/21 16:11 97.7 65 18 130/72 (91) 100 Room Air Current Medications Current Medications Medications (Trade) Dose Ordered Sig/Casimiro Route PRN Reason Start Time Stop Time Status Last Admin Dose Admin Acetaminophen (Tylenol Tab) 650 mg Q6HP PRN PO HEADACHE or DISCOMFORT 01/06/21 15:50 01/09/21 03:15 Al Hydrox/Mg Hydrox/Simethicone (Mylanta) 30 ml Q4HP PRN PO HEARTBURN/INDIGESTION 01/06/21 15:50 Home Med (Med Rec Complete!) ASDIRECTED XX 01/06/21 17:20 01/06/21 17:24 DC Hydroxyzine HCl (Atarax) 50 mg Q6HP PRN PO anxiety 01/07/21 22:30 01/10/21 14:32 Magnesium Hydroxide (Milk Of Magnesia) 30 ml DAILYPRN PRN PO CONSTIPATION 01/06/21 15:50 Methadone HCl (Dolophine) 100 mg DAILY PO 01/07/21 09:00 01/10/21 09:53 Mirtazapine (Remeron) 15 mg QHS PO 01/06/21 21:00 01/09/21 21:10 Nicotine (Nicoderm Cq 21mg) 1 patch DAILY TD 01/08/21 09:00 01/10/21 09:53 Nicotine (Nicorette) 4 mg Q4HP PRN PO NICOTINE WITHDRAWAL 01/06/21 23:00 01/08/21 09:17 DC Olanzapine (ZyPREXA ZYDIS) 5 mg Q4HP PRN PO AGITATION 01/06/21 22:35 01/08/21 08:50 DC 01/07/21 21:29 Olanzapine (ZyPREXA ZYDIS) 5 mg Q6HP PRN PO ANXIETY/AGITATION 01/08/21 08:50 01/09/21 15:36 Risperidone (RisperDAL) 0.5 mg QAM PO 01/07/21 09:00 01/10/21 09:53 Risperidone (RisperDAL) 1 mg QHS PO 01/06/21 21:00 01/09/21 21:10 Trazodone HCl (Desyrel) 50 mg QHSP PRN PO INSOMNIA 01/06/21 15:50 01/09/21 21:10 Allergies Coded Allergies: chlorpromazine (Unverified Allergy, Severe, Lockjaw, 07/12/19) Information provided by mother who cares for him. haloperidol (Verified Allergy, Intermediate, EPS/ LOCKJAW, 07/12/19) nortriptyline (Verified Allergy, Unknown, 07/09/19) SHEFALI HESS MD Jan 10, 2021 16:57
[2021-01-10] MEDS: MIRTAZAPINE 15 MG TAB PO SCH (20:05)
[2021-01-10] MEDS: risperiDONE 1 MG TAB PO SCH (20:05)
--- NOTE | 2021-01-10 20:06 | ECGEPIP ---
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
--- NOTE | 2021-01-10 21:06 | ECGEPIP ---
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
[2021-01-10] MEDS: ACETAMINOPHEN TAB 650MG DOSE (2X325MG) PO PRN (21:19)
[2021-01-10] MEDS: traZODone 50 MG TAB PO PRN (21:19)
--- NOTE | 2021-01-10 23:17 | ECGEPIP ---
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 No remarkable changes Electronically Signed on 01-10-2021 23:16:40 EDT by Zachary Laws
[2021-01-11] MEDS: OLANZapine ORAL DISINTEGRATING TAB 5MG PO PRN ×2 (01:02→16:02)
[2021-01-11 06:00] VITALS: BP 106/64
[2021-01-11] MEDS: risperiDONE 0.5 MG TAB PO SCH (08:48)
[2021-01-11] MEDS: NICOTINE 21MG/24HR 1 EA TRANSDERMAL TD SCH (08:48)
[2021-01-11] MEDS: hydrOXYzine 50 MG TAB PO PRN ×2 (08:48→17:10)
[2021-01-11] MEDS: METHADONE 10 MG TAB (S0109) PO SCH (08:48)
[2021-01-11 17:08] VITALS: BP 119/73
[2021-01-11] MEDS: traZODone 50 MG TAB PO PRN (20:55)
[2021-01-11] MEDS: MIRTAZAPINE 15 MG TAB PO SCH (20:55)
[2021-01-11] MEDS: risperiDONE 1 MG TAB PO SCH (20:55)
[2021-01-12 06:31] VITALS: BP 117/76
[2021-01-12] MEDS: METHADONE 10 MG TAB (S0109) PO SCH (10:21)
[2021-01-12] MEDS: risperiDONE 0.5 MG TAB PO SCH (10:21)
[2021-01-12] MEDS: NICOTINE 21MG/24HR 1 EA TRANSDERMAL TD SCH (10:23)
[2021-01-12] MEDS: OLANZapine ORAL DISINTEGRATING TAB 5MG PO PRN ×2 (10:50→22:16)
[2021-01-12] MEDS: hydrOXYzine 50 MG TAB PO PRN ×2 (13:13→20:56)
--- NOTE | 2021-01-12 14:23 | MHIPNPDOC ---
[facility] Progress Note Progress Note DATE OF SERVICE: 01/12/21 HISTORY: Patient is a 45 -year-old Single, Disabled, Unemployed, Domiciled, , male, who was found at [facility] by a friend acting bizarrely and w as brought home where his mother then called 911. She reports that he was not talking coherently, his eyes were bulging and that he was breathing very heavily and his heart was racing. He was initially transferred to a medical unit for a prolonged QTc of 621 and he was positive for Opiates, Cocaine, Cannabis and Methadone. At this time he is admitted to Psychiatry for Unspecified Psychotic Disorder. Received collateral information from patient's Mom who reports that patient has a long history of Polysubstance Use, Schizophrenia with multiple admissions to this facility. He has had multiple admissions to this facility, previously diagnosed with Schizophrenia, Polysubstance Use and Psychosis. VITAL SIGNS: See below. CURRENT MEDICATIONS: See below. MENTAL STATUS EXAMINATION: Patient is a 45 -year-old Single, Disabled, Unemployed, Domiciled, , male, who was found at [facility] by a friend acting bizarre and delusional. He is admitted to psychiatry after he was medically stabilized on medicine for a prolonged QTc/and abnormal labs. He is quite disheveled, hair is unkempt, numerous tattoos on neck and arms. Eye contact is fleeting, drowsy at times. Speech: Spontaneous, slow rate, low tone and volume Language skills are intact Thought processes including: slowed, patient is intellectually disabled Thought content: denies depression and anxiety. Denies suicidal/homicidal ideation, planning or intent. Abstract reasoning, and computation: Impaired Description of associations: denies Description of abnormal or psychotic thoughts: blocked/blunted Judgment: impaired Insight: impaired Orientation: alert and oriented to person, place, time and situation Recent and remote memory: impaired Attention span and concentration: fair "I had a learning disability" Language: fair Fund of knowledge: below average "I don't know how to read, I have dyslexia and I have a learning disability Mood: "a little depressed": Blunted/Flat affect DIAGNOSES: Unspecified schizophrenia and other psychotic disorders Rule out Stimulant Induced Psychotic Disorder Schizophrenia disorder per history Opiate use disorder Cannabis use disorder Nicotine use disorder Alcohol use disorder Methamphetamine use disorder per history History of heroin IV use Intellectual Disability ASSESSMENT: When asked about his hospitalization, patient states that he was mayo ving anxiety and that is why he is admitted to the hospital. He "reports" that he no longer is anxious and wants to be discharged. Reviewed with the patient that he was delusional and bizarre and was not responding to his mother appropriately. Patient does not remember this and states, he does not remember this. He reports that is doing better - sleeping and eating well and that he has no reason for continued hospitalization. Patient reports numerous hospitalizations since he was 8 years old. Later on in the day, patient stopped this provider and asked when he was going to be seen. Reinforced with patient that he had been seen earlier in the day. Patient has memory issues today, he demonstrates poor insight and judgment. Patient was diagnosed with Schizophrenia when he was 13-14 years old. Currently due to cardiac issues with EKD and QT prolongation, patient cannot be ordered his home medications of Olanzapine 20 mg daily. I would like to have this ordered soon but QT is still prolonged at this writing and would be a contraindication for the Olanzapine. MANAGEMENT PLAN: Continue all medications as ordered. TIME SPENT: 25 minutes. Vital Signs Vital Signs Date Time Temp Pulse Resp B/P (MAP) Pulse Ox O2 Delivery O2 Flow Rate FiO2 01/12/21 06:31 97.9 72 16 117/76 (90) 96 Room Air Laboratory Data 24H Labs Laboratory Tests 2 01/11/21 16:18: Urine Color YELLOW, Urine Appearance CLEAR, Urine pH 7.0, Urine Specific Baker 1.019, Urine Protein NEGATIVE, Urine Glucose (UA) NEGATIVE, Urine Ketones NEGATIVE, Urine Blood NEGATIVE, Urine Nitrite NEGATIVE, Urine Bilirubin NEGATIVE, Urine Urobilinogen 4.0H, Urine Leukocyte Esterase TRACEH, Urine WBC (Auto) 0, Urine RBC (Auto) 0, Urine Hyaline Casts (Auto) 0, Urine Bacteria (Auto) NEGATIVE, Urine Squamous Epithelial Cells 0, Urine Mucus (Auto) SMALL, Urine Sperm (Auto) Current Medications Current Medications Medications (Trade) Dose Ordered Sig/Casimiro Route PRN Reason Start Time Stop Time Status Last Admin Dose Admin Acetaminophen (Tylenol Tab) 650 mg Q6HP PRN PO HEADACHE or DISCOMFORT 01/06/21 15:50 01/10/21 21:19 Al Hydrox/Mg Hydrox/Simethicone (Mylanta) 30 ml Q4HP PRN PO HEARTBURN/INDIGESTION 01/06/21 15:50 Home Med (Med Rec Complete!) ASDIRECTED XX 01/06/21 17:20 01/06/21 17:24 DC Hydroxyzine HCl (Atarax) 50 mg Q6HP PRN PO anxiety 01/07/21 22:30 01/12/21 13:13 Magnesium Hydroxide (Milk Of Magnesia) 30 ml DAILYPRN PRN PO CONSTIPATION 01/06/21 15:50 Methadone HCl (Dolophine) 100 mg DAILY PO 01/07/21 09:00 01/12/21 10:21 Mirtazapine (Remeron) 15 mg QHS PO 01/06/21 21:00 01/11/21 20:55 Nicotine (Nicoderm Cq 21mg) 1 patch DAILY TD 01/08/21 09:00 01/12/21 10:23 Nicotine (Nicorette) 4 mg Q4HP PRN PO NICOTINE WITHDRAWAL 01/06/21 23:00 01/08/21 09:17 DC Olanzapine (ZyPREXA ZYDIS) 5 mg Q4HP PRN PO AGITATION 01/06/21 22:35 01/08/21 08:50 DC 01/07/21 21:29 Olanzapine (ZyPREXA ZYDIS) 5 mg Q6HP PRN PO ANXIETY/AGITATION 01/08/21 08:50 01/12/21 10:50 Risperidone (RisperDAL) 0.5 mg QAM PO 01/07/21 09:00 01/12/21 10:21 Risperidone (RisperDAL) 1 mg QHS PO 01/06/21 21:00 01/11/21 20:55 Trazodone HCl (Desyrel) 50 mg QHSP PRN PO INSOMNIA 01/06/21 15:50 01/11/21 20:55 Allergies Coded Allergies: chlorpromazine (Unverified Allergy, Severe, Lockjaw, 07/12/19) Information provided by mother who cares for him. haloperidol (Verified Allergy, Intermediate, EPS/ LOCKJAW, 07/12/19) nortriptyline (Verified Allergy, Unknown, 07/09/19) WOLF RO NP Jan 12, 2021 14:23
[2021-01-12 18:08] VITALS: BP 111/73
[2021-01-12] MEDS: ACETAMINOPHEN TAB 650MG DOSE (2X325MG) PO PRN (20:56)
[2021-01-12] MEDS: MIRTAZAPINE 15 MG TAB PO SCH (20:56)
[2021-01-12] MEDS: risperiDONE 1 MG TAB PO SCH (20:57)
[2021-01-12] MEDS: traZODone 50 MG TAB PO PRN (20:57)
[2021-01-13 06:00] VITALS: BP 115/67
[2021-01-13] MEDS: NICOTINE 21MG/24HR 1 EA TRANSDERMAL TD SCH (09:00)
[2021-01-13] MEDS: risperiDONE 0.5 MG TAB PO SCH (09:53)
[2021-01-13] MEDS: METHADONE 10 MG TAB (S0109) PO SCH (09:54)
[2021-01-13] MEDS ORDERED: hydrOXYzine 50 MG TAB PO STA (14:16)
--- NOTE | 2021-01-13 16:56 | MHIPNPDOC ---
[facility] Progress Note Progress Note DATE OF SERVICE: 01/13/21 HISTORY: [Patient is a 45 -year-old Single, Disabled, Unemployed, Domiciled, , male, who was found at [facility] by a friend acting bizarrely and was brought home where his mother then called 911. She reports that he was not talking coherently, his eyes were bulging and that he was breathing very heavily and his heart was racing. He was initially transferred to a medical unit for a prolonged QTc of 621 and he was positive for Opiates, Cocaine, Cannabis and Methadone. At this time he is admitted to Psychiatry for Unspecified Psychotic Disorder. Received collateral information from patient's Mom who reports that patient has a long history of Polysubstance Use, Schizophrenia with multiple admissions to this facility. He has had multiple admissions to this facility, previously diagnosed with Schizophrenia, Polysubstance Use and Psychosis. VITAL SIGNS: See below. CURRENT MEDICATIONS: See below. MENTAL STATUS EXAMINATION: Patient is a 45 -year-old Single, Disabled, Unemployed, Domiciled, , male, who was found at [facility] by a friend acting bizarre and delusional. He is admitted to psychiatry after he was medically stabilized on medicine for a prolonged QTc/and abnormal labs. He is quite disheveled, hair is unkempt, numerous tattoos on neck and arms. Eye contact is fleeting, drowsy at times. Speech: Spontaneous, normal rate, tone and volume Language skills are intact Thought processes including: slowed, patient is intellectually disabled Thought content: denies depression and anxiety. Denies suicidal/homicidal ideation, planning or intent. Abstract reasoning, and computation: Impaired Description of associations: denies Description of abnormal or psychotic thoughts: blocked/blunted Judgment: improving Insight: improving Orientation: alert and oriented to person, place, time and situation Recent and remote memory: impaired Attention span and concentration: fair "I had a learning disability" Language: fair Fund of knowledge: below average "I don't know how to read, I have dyslexia and I have a learning disability Mood: euthymic : Blunted/Flat affect DIAGNOSES: Unspecified schizophrenia and other psychotic disorders Rule out Stimulant Induced Psychotic Disorder Schizophrenia disorder per history Opiate use disorder Cannabis use disorder Nicotine use disorder Alcohol use disorder Methamphetamine use disorder per history History of heroin IV use Intellectual Disability ASSESSMENT: Patient reports that he has improved and wants to be discharged. He has not exhibited any delusions or psychotic symptoms. Patient had EKG with QT at 480 and QTc at 455. This indicates a continued prolongation. Had family meeting with mother on phone. She was given information about patient's admission, why he is not on the Olanzapine which she reports needs to be reinstated before she will allow patient to return home. She is aware that patient has not attended to his ADLs she stated "that's normal for him." Reinforced that EKG shows continued abnormality and needs to normalize before the Olanzapine could be ordered. Discussed discontinuing the PRN Olanzapine and Risperdal and will start Olanzapine 5 mg. Patient reported that he was extremely anxious and needed Hydroxyzine. One time order for Hydroxyzine 100 mg ordered. Possible that patient can be discharged home tomorrow. He denies depression or suicidal thoughts. MANAGEMENT PLAN: Continue all medications as ordered. TIME SPENT: 25 minutes. Vital Signs Vital Signs Date Time Temp Pulse Resp B/P (MAP) Pulse Ox O2 Delivery O2 Flow Rate FiO2 01/13/21 06:00 97.6 75 18 115/67 (83) 96 01/12/21 06:31 Room Air Current Medications Current Medications Medications (Trade) Dose Ordered Sig/Casimiro Route PRN Reason Start Time Stop Time Status Last Admin Dose Admin Acetaminophen (Tylenol Tab) 650 mg Q6HP PRN PO HEADACHE or DISCOMFORT 01/06/21 15:50 01/12/21 20:56 Al Hydrox/Mg Hydrox/Simethicone (Mylanta) 30 ml Q4HP PRN PO HEARTBURN/INDIGESTION 01/06/21 15:50 01/13/21 02:21 Home Med (Med Rec Complete!) ASDIRECTED XX 01/06/21 17:20 01/06/21 17:24 DC Hydroxyzine HCl (Atarax) 50 mg Q6HP PRN PO anxiety 01/07/21 22:30 01/12/21 20:56 Magnesium Hydroxide (Milk Of Magnesia) 30 ml DAILYPRN PRN PO CONSTIPATION 01/06/21 15:50 01/12/21 19:53 Methadone HCl (Dolophine) 100 mg DAILY PO 01/07/21 09:00 01/13/21 09:54 Mirtazapine (Remeron) 15 mg QHS PO 01/06/21 21:00 01/12/21 20:56 Nicotine (Nicoderm Cq 21mg) 1 patch DAILY TD 01/08/21 09:00 01/12/21 10:23 Nicotine (Nicorette) 4 mg Q4HP PRN PO NICOTINE WITHDRAWAL 01/06/21 23:00 01/08/21 09:17 DC Olanzapine (ZyPREXA ZYDIS) 5 mg Q4HP PRN PO AGITATION 01/06/21 22:35 01/08/21 08:50 DC 01/07/21 21:29 Olanzapine (ZyPREXA ZYDIS) 5 mg Q6HP PRN PO ANXIETY/AGITATION 01/08/21 08:50 01/12/21 22:16 Risperidone (RisperDAL) 0.5 mg QAM PO 01/07/21 09:00 01/13/21 09:53 Risperidone (RisperDAL) 1 mg QHS PO 01/06/21 21:00 01/12/21 20:57 Trazodone HCl (Desyrel) 50 mg QHSP PRN PO INSOMNIA 01/06/21 15:50 01/12/21 20:57 Allergies Coded Allergies: chlorpromazine (Unverified Allergy, Severe, Lockjaw, 07/12/19) Information provided by mother who cares for him. haloperidol (Verified Allergy, Intermediate, EPS/ LOCKJAW, 07/12/19) nortriptyline (Verified Allergy, Unknown, 07/09/19) WOLF RO NP Jan 13, 2021 12:06
[2021-01-13 18:00] VITALS: BP 122/74
--- NOTE | 2021-01-13 20:16 | ECGEPIP ---
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
--- NOTE | 2021-01-13 20:23 | ECGEPIP ---
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
--- NOTE | 2021-01-13 20:33 | ECGEPIP ---
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
[2021-01-13] MEDS: MIRTAZAPINE 15 MG TAB PO SCH (20:35)
[2021-01-13] MEDS: traZODone 50 MG TAB PO PRN (20:35)
[2021-01-13] MEDS ORDERED: OLANZapine 5 MG TAB PO SCH (21:00)
[2021-01-13] MEDS: hydrOXYzine 50 MG TAB PO PRN (22:05)
[2021-01-14 06:49] VITALS: BP 132/76
[2021-01-14] MEDS: METHADONE 10 MG TAB (S0109) PO SCH (08:39)
[2021-01-14] MEDS: NICOTINE 21MG/24HR 1 EA TRANSDERMAL TD SCH (08:40)
[2021-01-14] MEDS: hydrOXYzine 50 MG TAB PO PRN (10:13)
[2021-01-14] MEDS ORDERED: OLAN5TAB PO (10:30)
[2021-01-14] MEDS ORDERED: MIRT-62 PO (10:30)
[2021-01-14] MEDS: ACETAMINOPHEN TAB 650MG DOSE (2X325MG) PO PRN (11:51)
--- NOTE | 2021-01-14 13:27 | MHDSPDOC ---
[facility] Discharge Summary Discharge Summary DATE OF ADMISSION: Jan 06, 2021 at 17:03 DATE OF DISCHARGE: January 14, 2021 at 1031 DISCHARGE DIAGNOSES: Unspecified schizophrenia and other psychotic disorders Rule out Stimulant Induced Psychotic Disorder Schizophrenia disorder per history Opiate use disorder Cannabis use disorder Nicotine use disorder Alcohol use disorder Methamphetamine use disorder per history History of heroin IV use Intellectual Disability REASON FOR ADMISSION: Patient is a 45 -year-old Single, Disabled, Unemployed, Domiciled, , male, who was found at [place] by a friend acting bizarrely and was brought home where his mother then called 911. She reports that he was not talking coherently, his eyes were bulging and that he was breathing very heavily and his heart was racing. He was initially transferred to a medical unit for a prolonged QTc of 621 and he was positive for Opiates, Cocaine, Cannabis and Methadone. At this time he is admitted to Psychiatry for Unspecified Psychotic Disorder. Received collateral information from patient's Mom who reports that patient has a long history of Polysubstance Use, Schizophrenia with multiple admissions to this facility. He has had multiple admissions to this facility, previously diagnosed with Schizophrenia, Polysubstance Use and Psychosis. CONSULTANTS INVOLVED: See Medical H + P by Hospitalist TREATMENT AND PROGRESS ON THE UNIT: Patient was admitted to the [facility] on a legal status he was afforded the following treatment modalities: 1) Individual Therapy 2) Group Therapy 3) Medication Management 4) Milieu Therapy 5) Safe Environment HOSPITAL COURSE: Patient was admitted to [facility] on from a medical floor. Patient initially was blocked and having difficulty speaking. He was sedated and his orientation and alertness was slow to improve. Much of the delay in his discharge was due to the prolonged QTc in the EKS and this delayed the ability to reinstate his Olanzapine which his reported he that without the antipsychotic he would decompensate. He also had minor memory issues. Pt stated that he has a long history of Schizophrenia and was first dx'd when he was 15 or 16 years old and states that he also had his first overdose at that time, and was using to keep his drug use to keep his Schizophrenia symptoms managed. He was not observed with any was delusional/ bizarre/paranoid symptoms during his hospitalization while on [facility]. His EKG is currently still showing a prolonged QTc at 455. Patient was ordered a low dose of Olanzapine and is discharged today because he has had normal mentation for several days. Patient and his mother is aware of his abnormal EKG and that he is only on a low dose of Olanzapine 5 mg daily. DISCHARGE ASSESSMENT: In today's interview, patient is alert and oriented, pts dress is ap propriate. He stated again that he wants to go home and misses his dogs. His latest EKG shows QTC of 455. We explained to him that his EKG has improved from the original but still not WNL. We explained to him that the QTC abnormality in the EKG is probably due to his continuous drug use. We advised him to refrain from using drugs. Patient asked;" even the cocaine?', we explained to him to refrain from cocaine especially. We explained to him that he will be discharged on a lower dose Olanzapine 5mg. He is normally on Olanzapine 20mg daily. He is pleasant and engaged in the interview. Denies depression and anxiety. Denies suicidal and homicidal ideation, planning or intent. Denies and is not observed with tyler, psychotic symptoms of delusions, bizarre thinking, obsessions, paranoia, ruminations illogical thoughts, flight of ideas or having poor insight and judgement. Patient has normal mentation, declines further hospitalization on a voluntary status and meets criteria for discharge today. Patient encouraged to return to hospital if symptoms worsen or change and encouraged to call unit if he/she/they needs to speak to provider for questions regarding medications or care. MENTAL STATUS EXAMINATION ON DISCHARGE: Patient is a 45 -year-old Single, Disabled, Unemployed, Domiciled, , male, who was found at [place] by a friend acting bizarrely. He was positive for Cocaine, Methadone (has a Rx for this), Opiates and Cannabis. In his interview today, he is disheveled (per Mom this is normal) making good eye contact and is not observed with any psychomotor retardation or agitation Speech: Is fluid, conversant, normal rate, tone and volume Language skills are intact Thought processes including: linear and goal oriented Thought content: denies depression and anxiety. Denies suicidal/homicidal ideation, planning or intent. Abstract reasoning, and computation: fair Description of associations: denies, none observed Description of abnormal or psychotic thoughts: denies, none observed. Judgment: fair Insight: fair Orientation: alert and oriented to person, place, time and situation Recent and remote memory: intact Attention span and concentration: good Language: expansive Fund of knowledge: average Mood: Euthymic Mood Affect: reactive MEDICATIONS ON DISCHARGE: See Medication Reconciliation PLAN/FOLLOWUP ARRANGEMENTS: Patient is being discharged to home with follow up at [facility] in [place], [place] The amount of time spent in the coordination of care for this patient was theo roximately 25 minutes. ETOH/Disorder Med Rx ETOH/DRUG DISORDER RX: Given to pt at d/c Vital Signs/I&Os Vital Signs Date Time Temp Pulse Resp B/P (MAP) Pulse Ox O2 Delivery O2 Flow Rate FiO2 01/14/21 06:49 97.2 54 18 132/76 (94) 94 Room Air Laboratory Data Microbiology Microbiology 01/11/21 Urine Culture - Final, Complete Medications Scheduled Methadone HCl (Methadone HCl) 10 Mg Tablet, 100 MG PO DAILY for 3 Days Mirtazapine (Remeron) 15 Mg Tablet, 15 MG PO QHS for Insomnia, #7 Olanzapine (Olanzapine) 5 Mg Tablet, 5 MG PO QHS for Schizophrenia, #7 Allergies Coded Allergies: chlorpromazine (Unverified Allergy, Severe, Lockjaw, 07/12/19) Information provided by mother who cares for him. haloperidol (Verified Allergy, Intermediate, EPS/ LOCKJAW, 07/12/19) nortriptyline (Verified Allergy, Unknown, 07/09/19) WOLF RO NP Jan 14, 2021 10:33
--- NOTE | 2021-01-14 20:38 | ECGEPIP ---
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
== END 2021-01-14 13:10 | disposition home or self-care (01) | DRG 750 ==
LOC: M ED INP 17:03 → M PSY 17:10
PROVIDERS: ADMIT Psychiatry & Neurology Psychiatry; ATTEND Psychiatry & Neurology Psychiatry
DX: F20.9 Schizophrenia, unspecified (principal); F79 Unspecified intellectual disabilities; F10.10 Alcohol abuse, uncomplicated; F15.90 Other stimulant use, unspecified, uncomplicated; F12.90 Cannabis use, unspecified, uncomplicated; F11.90 Opioid use, unspecified, uncomplicated; F17.200 Nicotine dependence, unspecified, uncomplicated; Z88.8 Allergy status to other drugs, medicaments and biological substances; Z79.899 Other long term (current) drug therapy

== ENCOUNTER 2021-08-05 22:09 | Inpatient (IN) | payer MEDICAID, OTHER ==
[~2021-08-05] VITALS: Ht 172.7 cm; Wt 76.8 kg
[~2021-08-05 22:09] MED LIST changes: -DOXY100C PO; +DOXY100C3 PO; +METH-1177 PO; -METH10TA2 PO; -OLAN10TA2 PO; +OLAN1TAB16 PO; +OLAN1TAB20 PO; -OLAN5TAB PO; +QUET1TAB17 PO; -QUET25TA3 PO; -QUET400T PO; +QUET400T2 PO; -QUET50TA3 PO; +QUET50TA4 PO
--- OUTSIDE RECORDS SUMMARY | 2021-08-05 22:15 | CCD ---
Author Author [facility] Organization [facility] Address Unknown Phone Unavailable Support Name Relationship Address Phone MARCO ANTONOI [place] [address] Pacheco Gutierrez Next Of Kin [address] [place] [address] Rodriguez HINESP, Porsha Next Of Kin [address] [place] [address] PEYTON Frias, Porsha Next Of Kin [address] [place] [address] Liliana Tamez Next Of Kin [address] [place] [address] DISABLED Next Of Kin Unknown Unavailable UE Next Of Kin Unknown Unavailable SAHRA BENITEZ Next Of Kin [address] [place] [address] Sahra Benitez or Domingo ECON [address] [place] [address] Unavailable Re-disclosure Warning The records that you are about to access may contain information from federally-assisted alcohol or drug abuse programs. If such information is present, then the following federally mandated warning applies: This information has been disclosed to you from records protected by federal confidentiality rules (42 CFR part 2). The federal rules prohibit you from making any further disclosure of this information unless further disclosure is expressly permitted by the written consent of the person to whom it pertains or as otherwise permitted by 42 CFR part 2. A general authorization for the release of medical or other information is NOT sufficient for this purpose. The Federal rules restrict any use of the information to criminally investigate or prosecute any alcohol or drug abuse patient.The records that you are about to access may contain highly sensitive health information, the redisclosure of which is protected by Article 27-F of the [facility] Public Health law. If you continue you may have access to information: Regarding HIV / AIDS; Provided by facilities licensed or operated by the [facility] Office of Mental Health; or Provided by the [facility] Office for People With Developmental Disabilities. If such information is present, then the following [facility] mandated warning applies: This information has been disclosed to you from confidential records which are protected by state law. State law prohibits you from making any further disclosure of this information without the specific written consent of the person to whom it pertains, or as otherwise permitted by law. Any unauthorized further disclosure in violation of state law may result in a fine or halfway sentence or both. A general authorization for the release of medical or other information is NOT sufficient authorization for further disc losure. Encounters Encounter Providers Location Date Indications Data Source(s ) Unknown [address] [facility] [id number] 03/12/2021 12:00:00 AM EDT eCW1 ([facility]) Unknown [address] [facility] [id number] 03/09/2021 12:00:00 AM EDT eCW1 ([facility]) Outpatient [address] [facility] [id number] 03/09/2021 12:00:00 AM EDT eCW1 ([facility]) Unknown [address] [facility] [id number] 03/05/2021 12:00:00 AM EDT eCW1 ([facility]) Outpatient [address] [facility] [id number] 11/12/2020 12:00:00 AM EST eCW1 ([facility]) Unknown [address] [facility] [id number] 11/04/2020 12:00:00 AM EST eCW1 ([facility]) Immunizations Vaccine Date Status Description Data Source(s) COVID-19 VACC, MRNA(PFIZER)/PF 07/02/2021 12:00:00 AM EDT completed [facility] COVID-19 VACCINE Pfizer 07/02/2021 12:00:00 AM EDT completed [facility] Vaccine Series Complete: NOThis Data was Submitted to [facility] Via myinfoQ. Medications Medication Brand Name Start Date Product Form Dose Route Admi nistrative Instructions Pharmacy Instructions Status Indications Reaction Description Data Source(s) 1 mg 07/22/2021 12:00:00 AM EDT tablet 30 TAKE ONE TABLET BY MOUTH AT BEDTIME TAKE ONE TABLET BY MOUTH AT BEDTIME SOLD: 07/26/2021 [facility] buspirone hydrochloride 15 MG Oral Tablet BUSPIRONE HCL 07/22/2021 12:00:00 AM EDT tablet 90 TAKE ONE TABLET BY MOUTH THR EE TIMES A DAY TAKE ONE TABLET BY MOUTH THREE TIMES A DAY SOLD: 07/26/2021 [facility] 1 mg 06/24/2021 12:00:00 AM EDT tablet 90 TAKE ONE AND ONE-HALF TABLETS BY MOUTH TWICE A DAY TAKE ONE AND ONE-HALF TABLETS BY MOUTH TWICE A DAY ALLIE [facility] buspirone hydrochloride 15 MG Oral Tablet BUSPIRONE HCL 06/24/2021 12:00:00 AM EDT tablet 90 TAKE ONE TABLET BY MOUTH THR EE TIMES A DAY TAKE ONE TABLET BY MOUTH THREE TIMES A DAY SOLD: 06/29/2021 [facility] 7.5 mg 06/04/2021 12:00:00 AM EDT tablet 45 TAKE ONE TABLET BY MOUTH THREE TIMES A DAY TAKE ONE TABLET BY MOUTH THREE TIMES A DAY SOLD: 06/08/2021 [facility] 0.5 mg 06/03/2021 12:00:00 AM EDT tablet 60 TAKE ONE TABLET BY MOUTH TWICE A DAY TAKE ONE TABLET BY MOUTH TWICE A DAY SOLD: 06/08/2021 [facility] 0.5 mg 06/03/2021 12:00:00 AM EDT tablet 60 TAKE ONE TABLET BY MOUTH TWICE A DAY TAKE ONE TABLET BY MOUTH TWICE A DAY SOLD: 07/13/2021 [facility] 30 mg 05/06/2021 12:00:00 AM EDT tablet 30 TAKE ONE TABLET BY MOUTH AT BEDTIME TAKE ONE TABLET BY MOUTH AT BEDTIME SOLD: 05/07/2021 [facility] 7.5 mg 05/06/2021 12:00:00 AM EDT tablet 90 TAKE ONE TABLET BY MOUTH THREE TIMES A DAY TAKE ONE TABLET BY MOUTH THREE TIMES A DAY SOLD: 05/07/2021 [facility] 1 mg 05/06/2021 12:00:00 AM EDT tablet 90 TAKE ONE AND ONE-HALF TABLETS BY MOUTH TWICE A DAY TAKE ONE AND ONE-HALF TABLETS BY MOUTH TWICE A DAY ALLIE [facility] 30 mg 05/06/2021 12:00:00 AM EDT tablet 30 TAKE ONE TABLET BY MOUTH AT BEDTIME TAKE ONE TABLET BY MOUTH AT BEDTIME SOLD: 07/13/2021 [facility] 30 mg 05/06/2021 12:00:00 AM EDT tablet 30 TAKE ONE TABLET BY MOUTH AT BEDTIME TAKE ONE TABLET BY MOUTH AT BEDTIME SOLD: 06/08/2021 [facility] 1 mg 03/24/2021 12:00:00 AM EDT tablet 90 TAKE 1 AND 1/2 TABLET BY MOUTH TWO TIMES A DAY TAKE 1 AND 1/2 TABLET BY MOUTH TWO TIMES A DAY SOLD: 03/28/2021 [facility] 1 mg 03/11/2021 12:00:00 AM EDT tablet 45 TAKE 1 AND 1/2 TABLETS BY MOUTH TWO TIMES A DAY TAKE 1 AND 1/2 TABLETS BY MOUTH TWO TIMES A DAY SOLD: 03/11/2021 [facility] 17 gram/dose 03/09/2021 12:00:00 AM EDT powder 510 DISSOLVE 1 CAPFUL IN 8OZ LIQUID AND DRINK ONCE DAILY DISSOLVE 1 CAPFUL IN 8OZ LIQUID AND DRIN K ONCE DAILY SOLD: 04/09/2021 [facility] POLYETHYLENE GLYCOL 3350 142 MG/ML Oral Solution [Dori lax] MiraLax 17 GM/SCOOP MiraLax 17 GM/SCOOP 03/09/2021 12:00:00 AM EDT active MiraLax 17 GM/SCOOP eCW1 ([facility]) 17 gram/dose 03/09/2021 12:00:00 AM EDT powder 510 DISSOLVE 1 CAPFUL IN 8OZ LIQUID AND DRINK ONCE DAILY DISSOLVE 1 CAPFUL IN 8OZ LIQUID AND DRIN K ONCE DAILY SOLD: 03/10/2021 [facility] 17 gram/dose 03/09/2021 12:00:00 AM EDT powder 510 DISSOLVE 1 CAPFUL IN 8OZ LIQUID AND DRINK ONCE DAILY DISSOLVE 1 CAPFUL IN 8OZ LIQUID AND DRIN K ONCE DAILY SOLD: 05/07/2021 [facility] POLYETHYLENE GLYCOL 3350 142 MG/ML Oral Solution [Dori lax] MiraLax 17 GM/SCOOP MiraLax 17 GM/SCOOP 03/09/2021 12:00:00 AM EDT active MiraLax 17 GM/SCOOP eCW1 ([facility]) POLYETHYLENE GLYCOL 3350 142 MG/ML Oral Solution [Dori lax] MiraLax 17 GM/SCOOP MiraLax 17 GM/SCOOP 03/09/2021 12:00:00 AM EDT active MiraLax 17 GM/SCOOP eCW1 ([facility]) 0.5 mg 03/05/2021 12:00:00 AM EDT tablet 60 TAKE ONE TABLET BY MOUTH TWICE A DAY TAKE ONE TABLET BY MOUTH TWICE A DAY SOLD: 03/06/2021 [facility] 0.5 mg 03/05/2021 12:00:00 AM EDT tablet 60 TAKE ONE TABLET BY MOUTH TWICE A DAY TAKE ONE TABLET BY MOUTH TWICE A DAY SOLD: 03/06/2021 [facility] 30 mg 03/05/2021 12:00:00 AM EDT tablet 30 TAKE ONE TABLET BY MOUTH AT BEDTIME TAKE ONE TABLET BY MOUTH AT BEDTIME SOLD: 03/06/2021 [facility] 30 mg 03/05/2021 12:00:00 AM EDT tablet 30 TAKE ONE TABLET BY MOUTH AT BEDTIME TAKE ONE TABLET BY MOUTH AT BEDTIME SOLD: 04/09/2021 [facility] 30 mg 02/03/2021 12:00:00 AM EDT tablet 15 TAKE ONE TABLET BY MOUTH AT BEDTIME TAKE ONE TABLET BY MOUTH AT BEDTIME SOLD: 02/24/2021 [facility] 30 mg 02/03/2021 12:00:00 AM EDT tablet 15 TAKE ONE TABLET BY MOUTH AT BEDTIME TAKE ONE TABLET BY MOUTH AT BEDTIME SOLD: 02/03/2021 [facility] olanzapine 5 MG Oral Tablet OLANZAPINE 01/29/2021 12:00:00 AM EDT tabl et 10 TAKE ONE TABLET BY MOUTH AT BEDTIME TAKE ONE TABLET BY MOUTH AT BEDTIME SOLD: 02/03/2021 [facility] 15 mg 01/14/2021 12:00:00 AM EDT tablet 7 TAKE ONE TABLET BY MOUTH AT BEDTIME FOR INSOMNIA TAKE ONE TABLET BY MOUTH AT BEDTIME FOR INSOMNIA SOLD: 01/14/2021 [facility] 15 mg 01/14/2021 12:00:00 AM EDT tablet 7 TAKE ONE TABLET BY MOUTH AT BEDTIME FOR INSOMNIA TAKE ONE TABLET BY MOUTH AT BEDTIME FOR INSOMNIA SOLD: 01/28/2021 [facility] 400 mg 12/25/2020 12:00:00 AM EDT tablet 15 TAKE ONE TABLET BY MOUTH AT BEDTIME TAKE ONE TABLET BY MOUTH AT BEDTIME SOLD: 2020 [facility] olanzapine 10 MG Oral Tablet OLANZAPINE 12/24/2020 12:00:00 AM EDT tab let 15 TAKE ONE TABLET BY MOUTH AT BEDTIME TAKE ONE TABLET BY MOUTH AT BEDTIME SOLD: 12/24/2020 [facility] 1 mg 12/24/2020 12:00:00 AM EDT tablet 60 TAKE ONE TABLET BY MOUTH TWICE A DAY TAKE ONE TABLET BY MOUTH TWICE A DAY SOLD: 12/24/2020 [facility] 5 mg 12/13/2020 12:00:00 AM EDT capsule 30 TAKE ONE CAPSULE BY MOUTH AT BEDTIME TAKE ONE CAPSULE BY MOUTH AT BEDTIME SOLD: 12/13/2020 [facility] 300 mg 12/11/2020 12:00:00 AM EDT tablet 15 TAKE ONE TABLET BY MOUTH AT BEDTIME TAKE ONE TABLET BY MOUTH AT BEDTIME SOLD: 12/13/2020 [facility] 2 mg 12/11/2020 12:00:00 AM EDT capsule 60 TAKE TWO CAPSULES BY MOUTH AT BEDTIME TAKE TWO CAPSULES BY MOUTH AT BEDTIME SOLD: 12/13/2020 [facility] 20 mg 12/11/2020 12:00:00 AM EDT capsule 7 TAKE ONE CAPSULE BY MOUTH EVERY MORNING FOR 7 DAYS THEN DISCONTINUE TAKE ONE CAPSULE BY MOUTH EVERY MORNING FOR 7 DAYS THEN DISCONTINUE SOLD: 12/13/2020 [facility] quetiapine 100 MG Oral Tablet QUETIAPINE FUMARATE 12/11/2020 12: 00:00 AM EDT tablet 30 TAKE ONE TABLET BY MOUTH EVERY M ORNING TAKE ONE TABLET BY MOUTH EVERY MORNING SOLD: 12/13/2020 [facility] 1 mg 11/24/2020 12:00:00 AM EST tablet 60 TAKE ONE TABLET BY MOUTH TWICE A DAY TAKE ONE TABLET BY MOUTH TWICE A DAY SOLD: 11/24/2020 [facility] Trazodone Hydrochloride 100 MG Oral Tablet TRAZODONE HCL 11/07/2020 12:00:00 AM EST tablet 30 TAKE ONE TABLET BY MOUTH AT BEDTIME TAKE ONE TABLET BY MOUTH AT BEDTIME SOLD: 12/10/2020 [facility] Trazodone Hydrochloride 100 MG Oral Tablet TRAZODONE HCL 11/07/2020 12:00:00 AM EST tablet 30 TAKE ONE TABLET BY MOUTH AT BEDTIME TAKE ONE TABLET BY MOUTH AT BEDTIME SOLD: 11/09/2020 [facility] 1 mg 10/22/2020 12:00:00 AM EST tablet 60 TAKE ONE TABLET BY MOUTH TWICE A DAY TAKE ONE TABLET BY MOUTH TWICE A DAY SOLD: 10/24/2020 [facility] 5 mg 10/06/2020 12:00:00 AM EST capsule 30 TAKE ONE CAPSULE BY MOUTH AT BEDTIME TAKE ONE CAPSULE BY MOUTH AT BEDTIME SOLD: 10/13/2020 [facility] 20 mg 10/06/2020 12:00:00 AM EST capsule 60 TAKE TWO CAPSULES BY MOUTH EVERY MORNING TAKE TWO CAPSULES BY MOUTH EVERY MORNING SOLD: 11/09/2020 [facility] quetiapine 200 MG Oral Tablet QUETIAPINE FUMARATE 10/06/2020 12: 00:00 AM EST tablet 30 TAKE ONE TABLET BY MOUTH AT BEDT JENNIFER TAKE ONE TABLET BY MOUTH AT BEDTIME SOLD: 11/09/2020 [facility] quetiapine 100 MG Oral Tablet QUETIAPINE FUMARATE 10/06/2020 12: 00:00 AM EST tablet 30 TAKE ONE TABLET BY MOUTH EVERY D AY IN THE MORNING TAKE ONE TABLET BY MOUTH EVERY DAY IN THE MORNING SOLD: 10/13/2020 [facility] 20 mg 10/06/2020 12:00:00 AM EST capsule 60 TAKE TWO CAPSULES BY MOUTH EVERY MORNING TAKE TWO CAPSULES BY MOUTH EVERY MORNING SOLD: 10/13/2020 [facility] 5 mg 10/06/2020 12:00:00 AM EST capsule 30 TAKE ONE CAPSULE BY MOUTH AT BEDTIME TAKE ONE CAPSULE BY MOUTH AT BEDTIME SOLD: 11/09/2020 [facility] quetiapine 200 MG Oral Tablet QUETIAPINE FUMARATE 10/06/2020 12: 00:00 AM EST tablet 30 TAKE ONE TABLET BY MOUTH AT BEDT JENNIFER TAKE ONE TABLET BY MOUTH AT BEDTIME SOLD: 10/13/2020 [facility] quetiapine 100 MG Oral Tablet QUETIAPINE FUMARATE 10/06/2020 12: 00:00 AM EST tablet 30 TAKE ONE TABLET BY MOUTH EVERY D AY IN THE MORNING TAKE ONE TABLET BY MOUTH EVERY DAY IN THE MORNING SOLD: 11/09/2020 [facility] 2 mg 09/23/2020 12:00:00 AM EST capsule 60 TAKE TWO CAPSULES BY MOUTH AT BEDTIME TAKE TWO CAPSULES BY MOUTH AT BEDTIME SOLD: 09/30/2020 [facility] 20 mg 09/03/2020 12:00:00 AM EST capsule 60 TAKE TWO CAPSULES BY MOUTH EVERY MORNING TAKE TWO CAPSULES BY MOUTH EVERY MORNING SOLD: 09/04/2020 [facility] Trazodone Hydrochloride 100 MG Oral Tablet TRAZODONE HCL 09/01/2020 12:00:00 AM EST tablet 30 TAKE ONE TABLET BY MOUTH AT BEDTIME TAKE ONE TABLET BY MOUTH AT BEDTIME SOLD: 09/30/2020 [facility] 20 mg 08/06/2020 12:00:00 AM EST capsule 30 TAKE ONE CAPSULE BY MOUTH EVERY MORNING TAKE ONE CAPSULE BY MOUTH EVERY MORNING SOLD: 08/07/2020 [facility] 5 mg 08/06/2020 12:00:00 AM EST capsule 30 TAKE ONE CAPSULE BY MOUTH AT BEDTIME TAKE ONE CAPSULE BY MOUTH AT BEDTIME SOLD: 08/07/2020 [facility] quetiapine 100 MG Oral Tablet QUETIAPINE FUMARATE 08/06/2020 12: 00:00 AM EST tablet 60 TAKE ONE TABLET BY MOUTH TWICE A DAY TAKE ONE TABLET BY MOUTH TWICE A DAY SOLD: 08/07/2020 [facility] olanzapine 20 MG Oral Tablet OLANZAPINE 08/01/2020 12:00:00 AM EST tab let 16 TAKE ONE TABLET BY MOUTH AT BEDTIME TAKE ONE TABLET BY MOUTH AT BEDTIME SOLD: 01/01/2021 [facility] olanzapine 20 MG Oral Tablet OLANZAPINE 08/01/2020 12:00:00 AM EST tab let 30 TAKE ONE TABLET BY MOUTH AT BEDTIME TAKE ONE TABLET BY MOUTH AT BEDTIME SOLD: 10/29/2020 [facility] olanzapine 20 MG Oral Tablet OLANZAPINE 08/01/2020 12:00:00 AM EST tab let 30 TAKE ONE TABLET BY MOUTH AT BEDTIME TAKE ONE TABLET BY MOUTH AT BEDTIME SOLD: 08/01/2020 [facility] olanzapine 20 MG Oral Tablet OLANZAPINE 08/01/2020 12:00:00 AM EST tab let 30 TAKE ONE TABLET BY MOUTH AT BEDTIME TAKE ONE TABLET BY MOUTH AT BEDTIME SOLD: 12/03/2020 [facility] olanzapine 20 MG Oral Tablet OLANZAPINE 08/01/2020 12:00:00 AM EST tab let 30 TAKE ONE TABLET BY MOUTH AT BEDTIME TAKE ONE TABLET BY MOUTH AT BEDTIME SOLD: 09/30/2020 [facility] quetiapine 50 MG Oral Tablet QUETIAPINE FUMARATE 07/16/2020 12:0 0:00 AM EDT tablet 30 TAKE ONE TABLET BY MOUTH TWICE A DAY TAKE ONE TABLET BY MOUTH TWICE A DAY SOLD: 07/17/2020 [facility] Trazodone Hydrochloride 100 MG Oral Tablet TRAZODONE HCL 07/16/2020 12:00:00 AM EDT tablet 15 TAKE ONE TABLET BY MOUTH AT BEDTIME TAKE ONE TABLET BY MOUTH AT BEDTIME SOLD: 07/17/2020 [facility] 10 mg 07/16/2020 12:00:00 AM EDT capsule 15 TAKE ONE CAPSULE BY MOUTH EVERY MORNING TAKE ONE CAPSULE BY MOUTH EVERY MORNING SOLD: 07/17/2020 [facility] 150 mg 06/30/2020 12:00:00 AM EDT tablet 30 TAKE ONE TABLET BY MOUTH AT BEDTIME TAKE ONE TABLET BY MOUTH AT BEDTIME SOLD: 07/03/2020 [facility] 75 mg 06/24/2020 12:00:00 AM EDT capsule 30 TAKE ONE CAPSULE BY MOUTH AT BEDTIME TAKE ONE CAPSULE BY MOUTH AT BEDTIME SOLD: 06/26/2020 [facility] 2 mg 06/24/2020 12:00:00 AM EDT capsule 90 TAKE THREE CAPSULES BY MOUTH AT BEDTIME TAKE THREE CAPSULES BY MOUTH AT BEDTIME SOLD: 06/26/2020 [facility] olanzapine 15 MG Oral Tablet OLANZAPINE 06/18/2020 12:00:00 AM EDT tab let 60 TAKE TWO TABLETS BY MOUTH AT BEDTIME TAKE TWO TABLETS BY MOUTH AT BEDTIME SOLD: 06/18/2020 [facility] 5 mg 06/11/2020 12:00:00 AM EDT capsule 30 TAKE ONE CAPSULE BY MOUTH AT BEDTIME TAKE ONE CAPSULE BY MOUTH AT BEDTIME SOLD: 06/12/2020 [facility] Insurance Providers Payer name Policy type / Coverage type Policy ID Covered alliance party ID Covered alliance party's relationship to ha Policy Ha Plan Information Medicaid S [id number] S [id number] Managed Care - Community Plan [facility] P [id number] S [id number] Medicaid S [id number] S [id number] Managed Care [place] P [id number] S [id number] Medicaid S [id number] S [id number] MEDICAID [id number] SP [id number] SELF PAY ONLY [id number] SP [id number] [employer] [id number] [place] O [id number] S [id number] LEONOR [id number] SP [id number] NCO EPALS [id number] SP [id number] [facility] [id number] SP [id number] SELF PAY UNAVAILABLE SP UNAVAILA BLE [facility] [id number] SP [id number] [facility] [id number] SP [id number] [facility] [id number] SP [id number] LEONOR [id number] SP [id number] SP [id number] Problems, Conditions, and Diagnoses Code Display Name Description Problem Type Effective Dates Data Source(s) K59.00 [id number] Constipation, unspecified constipation ty pe Problem 03/09/2021 12:00:00 AM EDT eCW1 ([facility]) Surgeries/Procedures No Information Results ID Date Data Source [id number] 01/02/2021 02:34:00 AM EDT [facility] Name Value Range Interpretation Code Description Data Maribell rce(s) Supporting Document(s) SARS-CoV-2 (COVID 19) NEGATIVE - SARS-CoV-2 (COVID19) [facility] This lab was ordered by [facility] a nd reported by [facility]. Procedure Social History Code Duration Value Status Description Data Source(s ) Smoking 03/09/2021 12:00:00 AM EDT Current Smoker completed Curre nt Smoker eCW1 ([facility]) Smoking 03/09/2021 12:00:00 AM EDT Current Smoker completed Curre nt Smoker eCW1 ([facility]) Smoking 03/09/2021 12:00:00 AM EDT Current Smoker completed Curre nt Smoker eCW1 ([facility]) Smoking 11/12/2020 12:00:00 AM EST Current Smoker completed Curre nt Smoker eCW1 ([facility]) Smoking 11/12/2020 12:00:00 AM EST Current Smoker completed Curre nt Smoker eCW1 ([facility]) Vital Signs ID Date Data Source UNK Name Value Range Interpretation Code Description Data Source(s) Body weight 179 [lb_av] 179 [lb_av] eCW1 ([facility]) Body height 63 [in_i] 63 [in_i] eCW1 ([facility]) Body mass index (BMI) [Ratio] 31.70 kg/m2 31.70 kg/m2 eCW1 ([facility]) Heart rate 78 /min 78 /min eCW1 ([facility]) Respiratory rate 18 /min 18 /min [facility] Body temperature 97.6 [degF] 97.6 [degF] eCW1 ( [facility]) Systolic blood pressure 112 mm[Hg] 112 mm[Hg] e CW1 ([facility]) Diastolic blood pressure 72 mm[Hg] 72 mm[Hg] eCW1 ([facility]) Body weight 193.2 [lb_av] 193.2 [lb_av] eCW1 ([facility]) Body height 63 [in_i] 63 [in_i] eCW1 ([facility]) Body mass index (BMI) [Ratio] 34.22 kg/m2 34.22 kg/m2 eCW1 ([facility]) Heart rate 73 /min 73 /min eCW1 ([facility]) Respiratory rate 18 /min 18 /min [facility] Body temperature 99.0 [degF] 99.0 [degF] eCW1 ( [facility]) Systolic blood pressure 110 mm[Hg] 110 mm[Hg] e CW1 ([facility]) Diastolic blood pressure 82 mm[Hg] 82 mm[Hg] eCW1 ([facility]) Patient Treatment Plan of Care Planned Activity Planned Date Details Description Data Source (s) POLYETHYLENE GLYCOL 3350 142 MG/ML Oral Solution [Dori lax] 03/09/2021 12:00:00 AM EDT eCW1 ([facility]) POLYETHYLENE GLYCOL 3350 142 MG/ML Oral Solution [Dori lax] 03/09/2021 12:00:00 AM EDT eCW1 ([facility]) POLYETHYLENE GLYCOL 3350 142 MG/ML Oral Solution [Dori lax] 03/09/2021 12:00:00 AM EDT eCW1 ([facility])
--- NOTE | 2021-08-05 23:55 | REPVR ---
PROCEDURE INFORMATION: Exam: XR Chest Exam date and time: 08/05/2021 11:19 PM Age: 45 years old Clinical indication: Other: Altered mental status TECHNIQUE: Imaging protocol: XR of the chest. Views: 1 view. COMPARISON: CR Chest, 1 view 04/30/2016 8:15 PM FINDINGS: Lungs: There is decreased inflation of the lungs. There are no interval infiltrates. Pleural spaces: Unremarkable. No pleural effusion. No pneumothorax. Heart/Mediastinum: The heart and mediastinum are unchanged. Bones/joints: Unremarkable. Soft tissues: There are moderately generous overlying soft tissues. IMPRESSION: Negative poor inspiratory chest without significant change from 04/30/2016. Electronically signed by: Evans Jackson On 08/05/2021 23:54:57 PM
[2021-08-06 00:55] LABS: AMPHETAMINES LEVEL URINE NEGATIVE (NEGATIVE); BARBITURATES URINE NEGATIVE (NEGATIVE); BENZODIAZEPINES URINE NEGATIVE (NEGATIVE); CANNABINOIDS URINE POSITIVE (NEGATIVE); COCAINE METABOLITE URINE NEGATIVE (NEGATIVE); METHADONE URINE POSITIVE (NEGATIVE); OPIATES URINE NEGATIVE (NEGATIVE); PHENCYCLIDINE URINE NEGATIVE (NEGATIVE)
--- NOTE | 2021-08-06 00:55 | REPVR ---
PROCEDURE INFORMATION: Exam: CT Head Without Contrast Exam date and time: 08/05/2021 10:42 PM Age: 45 years old Clinical indication: Altered mental status/memory loss; Confusion or disorientation TECHNIQUE: Imaging protocol: Computed tomography of the head without contrast. Radiation optimization: All CT scans at this facility use at least one of these dose optimization techniques: automated exposure control; mA and/or kV adjustment per patient size (includes targeted exams where dose is matched to clinical indication); or iterative reconstruction. COMPARISON: CT Head without contrast 01/02/2021 10:30 AM FINDINGS: Brain: Normal. No hemorrhage. Unremarkable white matter. No mass effect. Cerebral ventricles: No ventriculomegaly. Paranasal sinuses: Visualized sinuses are unremarkable. No fluid levels. Mastoid air cells: Visualized mastoid air cells are well aerated. Bones/joints: Unremarkable. No acute fracture. Soft tissues: Unremarkable. IMPRESSION: Negative noncontrast head CT without change from 01/02/2021. Electronically signed by: Evans Jackson On 08/06/2021 00:55:09 AM
[2021-08-06 01:16] LABS: BASO % 0.4 % (0.0-1.0); EOS # 0.1 10^3/uL (0.0-0.5); EOS % 2.5 % (0.0-3.0); HEMOGLOBIN 16.1 g/dl (13.5-17.5); LYMPH % 17.1 % (24.0-44.0); MEAN CORPUSCULAR HEMOGLOBIN 31.6 pg (27.0-33.0); MEAN CORPUSCULAR VOLUME 90.2 fl (80.0-96.0); MONO # 0.2 10^3/uL (0.0-0.8); MONO % 4.3 % (2.0-8.0); NEUTROPHILS # 4.2 10^3/uL (1.5-8.5); NEUTROPHILS % 75.3 % (36.0-66.0); WHITE BLOOD COUNT 5.6 10^3/uL (4.0-10.0)
[2021-08-06 01:19] LABS: PLATELET COUNT, AUTOMATED 83 10^3/uL (150-450)
--- OUTSIDE RECORDS SUMMARY | 2021-08-06 02:12 | CCD ---
Author Author [facility] Organization [facility] Address Unknown Phone Unavailable Support Name Relationship Address Phone MARCO ANTONIO CABELLO [place] [address] Pacheco Gutierrez Next Of Kin [address] [place] [address] Rodriguez HINESP, Porsha Next Of Kin [address] [place] [address] PEYTON Frias, Porsha Next Of Kin [address] [place] [address] Liliana Tamez Next Of Kin [address] [place] [address] DISABLED Next Of Kin Unknown Unavailable UE Next Of Kin Unknown Unavailable SAHRA BENITEZ Next Of Kin [address] [place] [address] Sahra Benitez or Domingo ECON [address] [place] [address] Unavailable Re-disclosure Warning The records that you [...] is protected by Article 27-F of the [facility] Public Health law. If you continue you may have access to information: Regarding HIV / AIDS; Provided by facilities licensed or operated by the [facility] Office of Mental Health; or Provided by the [facility] Office for People With Developmental Disabilities. If such information is present, then the following [facility] mandated warning applies: This information has been [...] law may result in a fine or [place] [facility] [place] sentence or both. A general authorization for the release of medical or other information is NOT sufficient authorization for further disc losure. Encounters Encounter Providers Location Date Indications Data Source(s ) Unknown [address] [facility] [id number] 03/12/2021 12:00:00 AM EDT eCW1 (On license of [facility]) Unknown [address] [facility] [id number] 03/09/2021 12:00:00 AM EDT eCW1 (On license of [facility]) Outpatient [address] [facility] [id number] 03/09/2021 12:00:00 AM EDT eCW1 (On license of [facility]) Unknown [address] [facility] [id number] 03/05/2021 12:00:00 AM EDT eCW1 (On license of [facility]) Outpatient [address] [facility] [id number] 11/12/2020 12:00:00 AM EST eCW1 (On license of [facility]) Unknown [address] [facility] [id number] 11/04/2020 12:00:00 AM EST eCW1 (On license of [facility]) Immunizations Vaccine Date Status Description Data Source(s) COVID-19 VACC, MRNA(PFIZER)/PF 07/02/2021 12:00:00 AM EDT completed [facility] COVID-19 VACCINE Pfizer 07/02/2021 12:00:00 AM EDT completed [facility] Vaccine Series Complete: NOThis Data was Submitted to [facility] Via [employer]. Medications Medication Brand Name Start Date Product [...] AM EDT active MiraLax 17 GM/SCOOP eCW1 ([facility]) 17 gram/dose 03/09/2021 12:00:00 AM EDT powder [...] AM EDT active MiraLax 17 GM/SCOOP eCW1 ([facility]) POLYETHYLENE GLYCOL 3350 142 MG/ML Oral Solution [Dori lax] MiraLax 17 GM/SCOOP MiraLax 17 GM/SCOOP 03/09/2021 12:00:00 AM EDT active MiraLax 17 GM/SCOOP eCW1 ([facility]) 0.5 mg 03/05/2021 12:00:00 AM EDT tablet [...] type / Coverage type Policy ID Covered democrat ID Covered democrat's relationship to ha Policy Ah Plan Information Medicaid S [id number] S [id number] Managed Care - Community Plan [facility] P [id number] S [id number] Medicaid S [id number] S [id number] Managed Care [place] P [id number] S [id number] Medicaid S [id number] S [id number] MEDICAID [id number] SP [id number] SELF PAY ONLY [id number] SP [id number] ANSI-Commercial [id number] [place] O [id number] S [id number] LEONOR [id number] SP [id number] NCO EPALS [id number] SP [id number] [facility] [id number] SP [id number] SELF PAY UNAVAILABLE SP UNAVAILA BLE [facility] [id number] SP [id number] [facility] [id number] SP [id number] [facility] [id number] SP [id number] LEONOR [id number] SP [id number] EM[place] [id number] SP [id number] Problems, Conditions, and Diagnoses Code Display Name Description Problem Type Effective Dates Data Source(s) K59.00 82806523 Constipation, unspecified constipation ty pe Problem 03/09/2021 12:00:00 AM EDT eCW1 ([facility]) Surgeries/Procedures No Information Results ID Date Data Source [id number] 01/02/2021 02:34:00 AM EDT [facility] Name Value Range Interpretation Code Description Data Maribell rce(s) Supporting Document(s) SARS-CoV-2 (COVID 19) NEGATIVE - SARS-CoV-2 (COVID19) [facility] This lab was ordered by [facility] a nd reported by [facility]. Procedure Social History Code Duration Value Status Description Data Source(s ) Smoking 03/09/2021 12:00:00 AM EDT Current Smoker completed Curre nt Smoker eCW1 ([facility]) Smoking 03/09/2021 12:00:00 AM EDT Current Smoker completed Curre nt Smoker eCW1 ([facility]) Smoking 03/09/2021 12:00:00 AM EDT Current Smoker completed Curre nt Smoker eCW1 ([facility]) Smoking 11/12/2020 12:00:00 AM EST Current Smoker completed Curre nt Smoker eCW1 ([facility]) Smoking 11/12/2020 12:00:00 AM EST Current Smoker completed Curre nt Smoker eCW1 ([facility]) Vital Signs ID Date Data Source UNK Name Value Range Interpretation Code Description Data Source(s) Body weight 179 [lb_av] 179 [lb_av] [facility] Body height 63 [in_i] 63 [in_i] eCW1 ([facility]) Body mass index (BMI) [Ratio] 31.70 kg/m2 31.70 kg/m2 eCW1 ([facility]) Heart rate 78 /min 78 /min eCW1 (On license of [facility]) Respiratory rate 18 /min 18 /min eCW1 ([facility]) Body temperature 97.6 [degF] 97.6 [degF] eCW1 ( [facility]) Systolic blood pressure 112 mm[Hg] 112 mm[Hg] e CW1 ([facility]) Diastolic blood pressure 72 mm[Hg] 72 mm[Hg] eCW1 ([facility]) Body weight 193.2 [lb_av] 193.2 [lb_av] eCW1 ([facility]) Body height 63 [in_i] 63 [in_i] eCW1 ([facility]) Body mass index (BMI) [Ratio] 34.22 kg/m2 34.22 kg/m2 eCW1 ([facility]) Heart rate 73 /min 73 /min eCW1 (On license of [facility]) Respiratory rate 18 /min 18 /min eCW1 ([facility]) Body temperature 99.0 [degF] 99.0 [degF] eCW1 ( [facility]) Systolic blood pressure 110 mm[Hg] 110 mm[Hg] e CW1 ([facility]) Diastolic blood pressure 82 mm[Hg] 82 mm[Hg] eCW1 ([facility]) Patient Treatment Plan of Care Planned Activity Planned Date Details Description Data Source (s) POLYETHYLENE GLYCOL 3350 142 MG/ML Oral Solution [Dori lax] 03/09/2021 12:00:00 AM EDT eCW1 ([facility]) POLYETHYLENE GLYCOL 3350 142 MG/ML Oral Solution [Dori lax] 03/09/2021 12:00:00 AM EDT eCW1 ([facility]) POLYETHYLENE GLYCOL 3350 142 MG/ML Oral Solution [Dori lax] 03/09/2021 12:00:00 AM EDT eCW1 ([facility])
[2021-08-06 02:15] LABS: ACETAMINOPHEN LEVEL < 2.0 UG/ML (10.0-30.0); ALBUMIN 3.2 GM/DL (3.2-5.2); ALT/SGPT 132 U/L (12-78); BILIRUBIN,DIRECT 0.6 MG/DL (0.0-0.2); BLOOD UREA NITROGEN 5 MG/DL (7-18); CALCIUM LEVEL 9.4 MG/DL (8.5-10.1); CARBON DIOXIDE LEVEL 31 MEQ/L (21-32); CHLORIDE LEVEL 98 MEQ/L (98-107); CK-MB VALUE MASS < 1.0 NG/ML (<3.6); CPK CREATINE PHOSPHOKINASE 61 U/L (39-308); CREATININE FOR GFR 0.68 MG/DL (0.70-1.30); ETHYL ALCOHOL (ETHANOL) < 0.003 % (0.000-0.010); GLOMERULAR FILTRATION RATE > 60.0 (>60); GLUCOSE, FASTING 343 MG/DL (70-100); MB/CK RELATIVE INDEX 1.64 (< OR =4); POTASSIUM SERUM 3.8 MEQ/L (3.5-5.1); SALICYLATE LEVEL < 1.7 MG/DL (5.0-30.0); SODIUM LEVEL 136 MEQ/L (136-145); TOTAL PROTEIN 7.4 GM/DL (6.4-8.2); TROPONIN I < 0.02 NG/ML (< 0.10)
[2021-08-06] MEDS ORDERED: DEXTROSE 50% 50 ML SYRINGE IV PRN (02:55)
[2021-08-06] MEDS ORDERED: GLUCOSE 4GM CHEW TABLET PO PRN (02:55)
[2021-08-06] MEDS ORDERED: GLUCAGON INJ 1MG VIAL SC PRN (02:55)
--- NOTE | 2021-08-06 03:15 | HPEPDOC ---
[facility] Medical History & Physical Date of Admission Aug 06, 2021 Date of Service: Aug 06, 2021 Attending Physician: BETTY GORDON MD History and Physical CHIEF COMPLAINT: Altered mental status HISTORY OF PRESENT ILLNESS: Akbra is a 45-year-old male who is brought to the ED via EMS after being found lying in the [employer] parking lot unresponsive. Per EMS, patient was not responding to verbal stimulus. Upon arrival to ED, patient was oriented to person only and able to follow commands. Upon admission evaluation, patient is sedated and unresponsive to verbal and physical stimuli. HPI and history gathered through chart review and ED signout. In ED, VSS normal. CBC significant for PLT 83. CMP significant for fasting glucose 343, AST 112, ALT 132, AP 155. Ammonia level 50. Cardiac marker panel, TSH WNL. Tox screen positive for methadone, THC. U/A 3+ glucose. CXR, head CT unremarkable, as noted below. PAST MEDICAL HISTORY: 1. Schizophrenia. 2. Depression/anxiety. 3. Polysubstance abuse 4. History of hep C, unknown if treated PAST SURGICAL HISTORY: 1. T&A. SOCIAL HISTORY: Unable to gather due to patient's mental state. Polysubstance abuse known FAMILY HISTORY: Unable to gather due to patient's mental state. ALLERGIES: Please see below. REVIEW OF SYSTEMS: Unable to gather due to patient's mental state. HOME MEDICATIONS: Please see below. PHYSICAL EXAMINATION: VITAL SIGNS: Temperature 97.4, pulse 93, respiratory rate 16, blood pressure 130/97, pulse oximetry 94% on 3 L NC GENERAL APPEARANCE: Sedated, laying in stretcher. HEENT: NC/AT, PERRLA, nares patent. CARDIOVASCULAR: RRR, normal heart sounds, no MRG. LUNGS: CTA bilaterally, no WRR, no accessory muscles used. ABDOMEN: Soft, nondistended. SKIN: Multiple scabs on bilateral lower extremities, abdomen without surrounding signs of infection. Many tattoos MUSCULOSKELETAL: No significant deformities. EXTREMITIES: No edema/cyanosis, 2+ DP/PT pulses palpated bilaterally. NEUROLOGICAL: Unable to assess PSYCHIATRIC: Unable to assess LABORATORY DATA: See below. IMAGING: CXR (08/05) Negative poor inspiratory chest without significant change from 04/30/2016. Head CT (08/05) Negative noncontrast head CT without change from 01/02/2021. MICROBIOLOGY: Please see below. ASSESSMENT/PLAN: Akbar is a 45-year-old male PMH schizophrenia, polysubstance abuse, history of hep C who presents via EMS after being found unresponsive to verbal stimulus, was found to have PLT 83, fasting glucose 343, elevated LFTs, ammonia 50, positive methadone and THC, concerning for hyperammonemia, polysubstance abuse. #Altered mental status 2/2 elevated ammonia, hyperglycemia, polysubstance abuse CT head unremarkable, as noted above Order ABG Order serum ketone Plan as noted below #History of polysubstance abuse In ED, tox screen + methadone, THC Continue home methadone Hold home methadone, pending clinical improvement #Elevated LFTs, 2/2 history hepatitis C In ED, AST 112, ALT 132. EtOH <0.003 Unknown if patient has been treated for hep C in the past. Order HCV PCR Order liver ultrasound for w/u possible for cirrhosis 2/2 HCV Continue to monitor daily labs Consider f/u ID for HCV treatment upon discharge #Thrombocytopenia, most likely 2/2 liver cirrhosis In ED, PLT 83 Order platelet count EDTA Order peripheral smear Continue to monitor daily labs #Hyperammonemia, most likely 2/2 liver cirrhosis In ED, ammonia level 50 Order Lactulose Recheck ammonia level #DM2 In ED, fasting glucose 343 Start SSI, FSBS #Schizophrenia Continue one-to-one sitter Hold home psych meds, pending clinical improvement #DVT prophylaxis On Lovenox DIET: NPO ACTIVITY: Bedrest, fall risk precautions DISPO: Pending clinical improvement CODE STATUS: Full code, per chart review. Daytime provider will need to discuss CODE STATUS with patient when awake and alert. Vital Signs Vital Signs Date Time Temp Pulse Resp B/P (MAP) Pulse Ox O2 Delivery O2 Flow Rate FiO2 08/05/21 23:52 93 130/97 (108) 94 08/05/21 22:45 97.4 16 Laboratory Data Labs 24H Laboratory Tests 2 08/05/21 23:00: Bedside Glucose (Misc Panel) 331H 08/05/21 23:16: Urine Color YELLOW, Urine Appearance CLEAR, Urine pH 5.0, Urine Specific [place] 1.037, Urine Protein NEGATIVE, Urine Glucose (UA) 3+H, Urine Ketones NEGATIVE, Urine Blood NEGATIVE, Urine Nitrite NEGATIVE, Urine Bilirubin NEGATIVE, Urine Urobilinogen 0.2, Urine Leukocyte Esterase NEGATIVE, Urine WBC (Auto) 2, Urine RBC (Auto) 0, Urine Hyaline Casts (Auto) 0, Urine Bacteria (Auto) NEGATIVE, Urine Squamous Epithelial Cells 0, Urine Sperm (Auto) , Urine Opiates Screen NEGATIVE, Urine Methadone Screen POSITIVEH, Urine Barbiturates Screen NEGATIVE, Urine Phencyclidine Screen NEGATIVE, Urine Amphetamines Screen NEGATIVE, Urine Benzodiazepines Screen NEGATIVE, Urine Cocaine Metabolite Screen NEGATIVE, Urine Cannabinoids Screen POSITIVEH 08/06/21 01:05: Immature Granulocyte % (Auto) 0.4, Neutrophils (%) (Auto) 75.3H, Lymphocytes (%) (Auto) 17.1L, Monocytes (%) (Auto) 4.3, Eosinophils (%) (Auto) 2.5, Basophils (%) (Auto) 0.4, Neutrophils # (Auto) 4.2, Lymphocytes # (Auto) 1.0L, Monocytes # (Auto) 0.2, Eosinophils # (Auto) 0.1, Basophils # (Auto) 0.0, Nucleated Red Blood Cells % (auto) 0.0, Immature Platelet Fraction 7.1, Anion Gap 7L, Glomerular Filtration Rate > 60.0, Calcium Level 9.4, Total Bilirubin 1.0, Direct Bilirubin 0.6H, Aspartate Amino Transf (AST/SGOT) 112H, Alanine Aminotransferase (ALT/SGPT) 132H, Alkaline Phosphatase 155H, Ammonia 50H, Total Creatine Kinase 61, Creatine Kinase MB < 1.0, Creatine Kinase MB Relative Index 1.64, Troponin I < 0.02, Total Protein 7.4, Albumin 3.2, Albumin/Globulin Ratio 0.8, Thyroid Stimulating Hormone (TSH) 1.400, Salicylates Level < 1.7L, Acetaminophen Level < 2.0L, Ethyl Alcohol Level < 0.003 CBC/BMP Laboratory Tests 08/06/21 01:05 Home Medications Scheduled Methadone HCl (Methadone HCl) 10 Mg Tablet, 100 MG PO DAILY Mirtazapine (Remeron) 15 Mg Tablet, 15 MG PO QHS for Insomnia Olanzapine (Olanzapine) 5 Mg Tablet, 5 MG PO QHS for Schizophrenia Allergies Coded Allergies: nortriptyline (Verified Allergy, Unknown, 07/09/19) chlorpromazine (Unverified Adverse Reaction, Severe, Lockjaw, 05/26/21) Information provided by mother who cares for him. haloperidol (Verified Adverse Reaction, Severe, EPS/ LOCKJAW, 05/26/21) A-FIB/CHADSVASC A-FIB History Current/History of A-Fib/PAF?: No Elicia Weston DO Aug 06, 2021 03:15
[2021-08-06] MEDS ORDERED: NALOXONE INJ 0.4MG/1ML VIAL (J2310 PER 1MG) IV STA (03:48)
[2021-08-06] MEDS ORDERED: LACTULOSE 20 GM/30 ML SYRUP UD PR ONE (03:50)
[2021-08-06 03:51] LABS: ABG BASE EXCESS 3.8 (-2.0-2.0); ABG O2 SATURATION 92.6 % (95.0-99.0); ABG PARTIAL PRESSURE CO2 62.5 mmHg (35.0-45.0); ABG PARTIAL PRESSURE O2 63.1 mmHg (75.0-100.0); ABG STANDARD HCO3 27.7 MEQ/L (22.0-26.0); ABG TOTAL CO2 33.9 MEQ/L (22.0-29.0); ABG pH (ARTERIAL) 7.327 UNITS (7.350-7.450)
[2021-08-06 04:35] LABS: RSV AMPLIFICATION NEGATIVE (NEGATIVE)
--- OUTSIDE RECORDS SUMMARY | 2021-08-06 05:13 | CCD ---
Author Author [facility] Organization [facility] Address Unknown Phone Unavailable Support Name Relationship Address Phone MARCO ANTONIO CABELL[place] [address] Pacheco Gutierrez Next Of Kin [address] [place] [address] Rodriguez HINESP, Porsha Next Of Kin [address] [place] [address] PEYTON Frias, Porsha Next Of Kin [address] [place] [address] Liliana Tamez Next Of Kin [address] [place] [address] DISABLED Next Of Kin Unknown Unavailable UE Next Of Kin Unknown Unavailable SAHRA BENITEZ Next Of Kin [address] [place] [address] Sahra Benitez or Domingo ECON [address] [place] [address] Unavailable Re-disclosure Warning The records that you [...] is protected by Article 27-F of the [facility] Public Health law. If you continue you may have access to information: Regarding HIV / AIDS; Provided by facilities licensed or operated by the [facility] Office of Mental Health; or Provided by the [facility] Office for People With Developmental Disabilities. If such information is present, then the following [facility] mandated warning applies: This information has [...] law may result in a fine or prison sentence or both. A general authorization for the release of medical or other information is NOT sufficient authorization for further disc losure. Encounters Encounter Providers Location Date Indications Data Source(s ) Unknown [address] [facility] [id number] 03/12/2021 12:00:00 AM EDT eCW1 ([facility]) Unknown [address] [facility] [id number] 03/09/2021 12:00:00 AM EDT eCW1 ([facility]) Outpatient [address] [facility] [id number] 03/09/2021 12:00:00 AM EDT eCW1 ([facility]) Unknown [address] [facility] [id number] 03/05/2021 12:00:00 AM EDT eCW1 ([facility]) Outpatient [address] [facility] [id number] 11/12/2020 12:00:00 AM EST eCW1 ([facility]) Unknown [address] [facility] [id number] 11/04/2020 12:00:00 AM EST eCW1 ([facility]) Immunizations Vaccine Date Status Description Data Source(s) COVID-19 VACC, MRNA(PFIZER)/PF 07/02/2021 12:00:00 AM EDT completed [facility] COVID-19 VACCINE Pfizer 07/02/2021 12:00:00 AM EDT completed [facility] Vaccine Series Complete: NOThis Data was Submitted to [facility] Via [employer]. Medications Medication Brand Name Start Date Product [...] AM EDT active MiraLax 17 GM/SCOOP eCW1 ([facility]) 17 gram/dose 03/09/2021 12:00:00 AM EDT [...] AM EDT active MiraLax 17 GM/SCOOP eCW1 ([facility]) POLYETHYLENE GLYCOL 3350 142 MG/ML Oral Solution [Dori lax] MiraLax 17 GM/SCOOP MiraLax 17 GM/SCOOP 03/09/2021 12:00:00 AM EDT active MiraLax 17 GM/SCOOP eCW1 ([facility]) 0.5 mg 03/05/2021 12:00:00 AM EDT [...] type / Coverage type Policy ID Covered constitution party ID Covered constitution party's relationship to ha Policy Ha Plan Information Medicaid S [id number] S [id number] Managed Care - Community Plan [facility] P [id number] S [id number] Medicaid S [id number] S [id number] Managed Care [place] P [id number] S [id number] Medicaid S [id number] S [id number] MEDICAID [id number] SP [id number] SELF PAY ONLY [id number] SP [id number] ANSI-Commercial [id number] [place] O [id number] S [id number] LEONOR [id number] SP [id number] NCO EPALS [id number] SP [id number] [facility] [id number] SP [id number] SELF PAY UNAVAILABLE SP UNAVAILA BLE [facility] [id number] SP [id number] [facility] [id number] SP [id number] [facility] [id number] SP [id number] LEONOR [id number] SP [id number] [place] [id number] SP [id number] Problems, Conditions, and Diagnoses Code Display Name Description Problem Type Effective Dates Data Source(s) K59.00 [id number] Constipation, unspecified constipation ty pe Problem 03/09/2021 12:00:00 AM EDT eCW1 ([facility]) Surgeries/Procedures No Information Results ID Date Data Source [id number] 01/02/2021 02:34:00 AM EDT [facility] Name Value Range Interpretation Code Description Data Maribell rce(s) Supporting Document(s) SARS-CoV-2 (COVID 19) NEGATIVE - SARS-CoV-2 (COVID19) [facility] This lab was ordered by [facility] a nd reported by [facility]. Procedure Social History Code Duration Value Status Description Data Source(s ) Smoking 03/09/2021 12:00:00 AM EDT Current Smoker completed Curre nt Smoker eCW1 ([facility]) Smoking 03/09/2021 12:00:00 AM EDT Current Smoker completed Curre nt Smoker eCW1 ([facility]) Smoking 03/09/2021 12:00:00 AM EDT Current Smoker completed Curre nt Smoker eCW1 ([facility]) Smoking 11/12/2020 12:00:00 AM EST Current Smoker completed Curre nt Smoker eCW1 ([facility]) Smoking 11/12/2020 12:00:00 AM EST Current Smoker completed Curre nt Smoker eCW1 ([facility]) Vital Signs ID Date Data Source UNK Name Value Range Interpretation Code Description Data Source(s) Body weight 179 [lb_av] 179 [lb_av] eCW1 ([facility]) Body height 63 [in_i] 63 [in_i] eCW1 ([facility]) Body mass index (BMI) [Ratio] 31.70 kg/m2 31.70 kg/m2 eCW1 ([facility]) Heart rate 78 /min 78 /min eCW1 ([facility]) Respiratory rate 18 /min 18 /min eCW1 ([facility]) Body temperature 97.6 [degF] 97.6 [degF] eCW1 ( [facility]) Systolic blood pressure 112 mm[Hg] 112 mm[Hg] e CW1 ([facility]) Diastolic blood pressure 72 mm[Hg] 72 mm[Hg] eCW1 ([facility]) Body weight 193.2 [lb_av] 193.2 [lb_av] eCW1 ([facility]) Body height 63 [in_i] 63 [in_i] eCW1 ([facility]) Body mass index (BMI) [Ratio] 34.22 kg/m2 34.22 kg/m2 eCW1 ([facility]) Heart rate 73 /min 73 /min eCW1 ([facility]) Respiratory rate 18 /min 18 /min eCW1 ([facility]) Body temperature 99.0 [degF] 99.0 [degF] eCW1 ( [facility]) Systolic blood pressure 110 mm[Hg] 110 mm[Hg] e CW1 ([facility]) Diastolic blood pressure 82 mm[Hg] 82 mm[Hg] eCW1 ([facility]) Patient Treatment Plan of Care Planned [...]
[2021-08-06] MEDS: NS 1,000 ML IV SCH ×2 (05:33→15:19)
[2021-08-06 05:47] LABS: PLTBLUE- EDTA FREE CALC 95 K/mm3 (172-450); PLTBLUE- EDTA FREE MACHINE 86 10^3/uL (172-450)
[2021-08-06 06:26] LABS: HEMOGLOBIN A1c 11.9 %
[2021-08-06 08:00] VITALS: BP 120/73
[2021-08-06] MEDS: ENOXAPARIN 40MG/0.4ML SYRINGE (J1650 PER 10MG) SC SCH (09:02)
[2021-08-06] MEDS: HumaLOG INSULIN (NovoLOG) PER UNIT SC SCH ×3 (09:02→17:03)
--- NOTE | 2021-08-06 11:04 | ECGEPIP ---
[facility] - ED Test Date: 2021-08-05 Pat Name: ONI GONSALEZ Department: Room: [place] [address] Gender: Male Collection Analyst: JCAQUIE : 1975 Requested By: CIERRA Hand Order Number: [id number] Reading MD: Dima Jewell Measurements Intervals [place] Rate: 102 P: 32 NE: 144 QRS: -32 QRSD: 70 T: 12 QT: 382 QTc: 497 Interpretive Statements Sinus tachycardia POOR R WAVE PROGRESSION BASELINE ARTIFACT AFFECTS INTERPRETATION Electronically Signed on 08-06-2021 11:03:58 EST by Dima Jewell
[2021-08-06 12:00] VITALS: BP 120/86
[2021-08-06] MEDS ORDERED: BENZ0.5T23 PO (13:30)
[2021-08-06] MEDS ORDERED: METH10CO PO (13:30)
[2021-08-06] MEDS ORDERED: MIRT-60 PO (13:30)
[2021-08-06] MEDS ORDERED: RISP-8 PO (13:30)
[2021-08-06] MEDS ORDERED: INVE234I IM (13:30)
[2021-08-06] MEDS ORDERED: PATIENT COMMENT (13:30)
[2021-08-06] MEDS ORDERED: BUSP15TA47 PO (13:30)
[2021-08-06] MEDS ORDERED: HOME MED LIST COMPLETE! XX SCH (13:35)
[2021-08-06] MEDS ORDERED: METHADONE 10 MG TAB (S0109) PO ONE (14:40)
[2021-08-06] MEDS: NICOTINE 21MG/24HR 1 EA TRANSDERMAL TD SCH (14:54)
--- NOTE | 2021-08-06 15:36 | REPVR ---
PROCEDURE INFORMATION: Exam: US Abdomen, Limited; Right Upper Quadrant Exam date and time: 08/06/2021 6:16 AM Age: 45 years old Clinical indication: Screening exam; Other: Eval for cirrhosis; Additional info: Possible cirrhosis 2/2 hcv TECHNIQUE: Imaging protocol: US abdomen. Real time ultrasound with image documentation. Limited exam focused on the right upper quadrant. COMPARISON: CT ABD PELVIS WITH CONTRAST 01/02/2021 10:30 AM FINDINGS: Liver: The liver echotexture is heterogeneous and slightly hyperechoic suggestive of fatty change. The right lobe of the liver measures 16.5 cm in length, which is normal. Gallbladder: There are three small hypoechoic probable polyps attached to the gallbladder wall measuring 3 mm, 4 mm and 4 mm in size. The gallbladder wall is normal in thickness measuring 3 mm. Common bile duct: The common bile duct is normal. No choledocholithiasis. Pancreas: The pancreas is obscured by overlying bowel gas. Right kidney: The right kidney is normal measuring 11.5 x 6.1 x 5.5 cm in size. No hydronephrosis. Intraperitoneal space: No ascites. IMPRESSION: 1. The liver echotexture is heterogeneous and slightly hyperechoic suggestive of fatty change. The right lobe of the liver measures 16.5 cm in length, which is normal. 2. There are three small hypoechoic probable polyps attached to the gallbladder wall measuring 3 mm, 4 mm and 4 mm in size. The gallbladder wall is normal in thickness measuring 3 mm. 3. The pancreas is obscured by overlying bowel gas. 4. The right kidney is normal measuring 11.5 x 6.1 x 5.5 cm in size. No hydronephrosis. 5. No ascites. Electronically signed by: Janes Stock On 08/06/2021 15:35:39 PM
--- NOTE | 2021-08-06 15:51 | IPNPDOC ---
Text Note Date of Service The patient was seen on 08/06/21. NOTE Subjective: Patient is a 45-year-old male who was brought to the emergency [facility] via EMS after being found laying in a [employer] parking lot unresponsive. Per EMS, patient not responding to verbal stimulus. Upon arrival to the emergency department, patient was oriented to person only was able to follow some commands. Patient valuation, patient was sedated and unresponsive to verbal or physical stimuli. When I went to evaluate the patient this morning, he was very sleepy but did wake up slightly. Later on the afternoon, I went to reevaluate the patient and the patient was more awake stating that he does not remember anything that happened. Patient was asking about what happened. I did tell him that he was found unresponsive in a parking lot. Patient was asking how he got there. Patient apparently had been out with some friends in [place] and does not remember what was happening. Patient states he is on methadone and goes to the [facility] methadone clinic and receives 120 mg of methadone every day. Patient denies any IV drug use. Patient does say he was taking Xanax last night because he feels like he should be prescribed this medication but is not. Patient was very worried about trying to get to his home because someone broke his window. Patient's mother did call and the patient did speak with her and allow me to speak with her. Apparently they have had no idea with the patient was in the been looking for him for the past day. Patient currently denies any pain but was asking whether or not he would be able to get his methadone and smoke a cigarette. Review of systems: General: Patient denies fevers HEENT: Patient denies headaches Cardiovascular: Patient denies chest pain Respiratory: Patient denies shortness of breath, cough GI: Patient denies abdominal pain, nausea, vomiting, diarrhea : Patient denies increased frequency or pain with urination Extremities: Patient denies swelling or pain in extremities Neurological: Patient denies numbness or tingling in legs Physical exam: Vitals: See below General: Alert and oriented male patient who was sitting up in bed when I walked in. Patient did not appear to be in any acute distress. Patient was more obtunded earlier in the day and was much more awake in the afternoon HEENT: Normocephalic, atraumatic, moist mucous membranes. Neck: No lymphadenopathy or thyromegaly Cardiac: Regular rate and rhythm, no murmurs, normal S1, normal S2 Pulm: Clear to auscultation bilaterally. No wheezes, rhonchi, rales Abd: Nondistended, nontender to palpation, normal bowel sounds Ext: No edema bilateral lower extremities Labs: See below Imaging: Liver ultrasound performed on 08/06/2021 was reported to show liver echotexture is heterogeneous and slightly hyperechoic suggestive of fatty change. The right lobe of the liver measures 16.5 cm in length which is normal. There are 3 small hypoechoic probable polyps attached to the gallbladder wall measuring 3 mm, 4 mm, and 4 mm in size. The gallbladder wall is normal in thickness measuring 3 mm. Pancreas is secured by overlying bowel gas. The right kidney is normal measuring 11.5 x 6.1 x 5.5 cm in size. No hydronephros is. No ascites. Assessment/plan: 45-year-old male with past medical history of schizophrenia, polysubstance abuse, history of hepatitis C presents the hospital via EMS after being found unresponsive on have a platelet of 83, glucose 343 elevated LFTs, ammonia 50 and positive methadone THC concerning for hyperammonemia and polysubstance abuse. 1. Altered mental status. Most likely secondary to elevated ammonia levels. Patient did not appear to be in diabetic ketoacidosis at that time. I do not believe this was fully a drug overdose as the patient did receive a dose of Narcan and not fully wake up. Patient is now more awake and alert and is answering questions appropriately at this time. Further work-up needs to be performed in order to work-up the hyperammonemia. 2. History of polysubstance abuse. Patient is on methadone. We will restart this and wash the patient's vital signs closely. 3. Elevated transaminases with history of hepatitis C. Patient's denies drinking any alcohol. Liver ultrasound has been ordered and not show any ascites or cirrhosis but did suggest fatty change in the liver. 4. Thrombocytopenia most likely secondary to liver disease. Platelet count was 83. We will continue monitor with daily labs. No signs of bleeding at this time. 5. Hyperammonemia likely secondary to liver disease. Ammonia level is 50. Lactulose enema was given. We will continue monitor the patient's mental status. 6. Type 2 diabetes mellitus. Sliding scale insulin with consistent carb diet. 7. Schizophrenia. Continue one-to-one sitter. Psych meds can be restarted at this time. DVT Prophylaxis: Mechanical due to thrombocytopenia Disposition: Pending clinical improvement VS,Liz, I+O VSLiz, I+O Laboratory Tests 08/06/21 01:05 Vital Signs Date Time Temp Pulse Resp B/P (MAP) Pulse Ox O2 Delivery O2 Flow Rate FiO2 08/06/21 12:00 97.6 72 20 120/86 (97) 94 Nasal Cannula 2.0 GITA RODARTE DO Aug 06, 2021 15:51
[2021-08-06 16:00] VITALS: BP 142/80
[2021-08-06] MEDS: busPIRone 5 MG TAB PO SCH ×2 (16:00→20:19)
[2021-08-06] MEDS: BENZTROPINE 0.5 MG TAB PO SCH (20:19)
[2021-08-06] MEDS ORDERED: HumaLOG INSULIN (NovoLOG) PER UNIT SC STA (20:31)
[2021-08-06] MEDS ORDERED: HumaLOG INSULIN (NovoLOG) PER UNIT SC SCH (21:00)
[2021-08-06] MEDS ORDERED: MIRTAZAPINE 15 MG TAB PO SCH (21:00)
[2021-08-06] MEDS ORDERED: risperiDONE 1 MG TAB PO SCH (21:00)
[2021-08-07 04:00] VITALS: BP 108/67
[2021-08-07 05:34] LABS: HEMATOCRIT 47.3 % (42.0-52.0); HEMOGLOBIN 15.8 g/dl (13.5-17.5); MEAN CORPUSCULAR HEMOGLOBIN 31.7 pg (27.0-33.0); MEAN CORPUSCULAR HGB CONC 33.4 g/dl (32.0-36.5); MEAN CORPUSCULAR VOLUME 94.8 fl (80.0-96.0); PLATELET COUNT, AUTOMATED 78 10^3/uL (150-450); RED BLOOD COUNT 4.99 10^6/uL (4.30-6.10); WHITE BLOOD COUNT 3.7 10^3/uL (4.0-10.0)
[2021-08-07 06:02] LABS: ACETONE/KETONE 1.26 MG/DL (<2.81); ALBUMIN 2.7 GM/DL (3.2-5.2); ALT/SGPT 110 U/L (12-78); BILIRUBIN,TOTAL 0.6 MG/DL (0.2-1.0); BLOOD UREA NITROGEN 7 MG/DL (7-18); CALCIUM LEVEL 8.4 MG/DL (8.5-10.1); CARBON DIOXIDE LEVEL 30 MEQ/L (21-32); CHLORIDE LEVEL 105 MEQ/L (98-107); CREATININE FOR GFR 0.64 MG/DL (0.70-1.30); GLOMERULAR FILTRATION RATE > 60.0 (>60); GLUCOSE, FASTING 316 MG/DL (70-100); POTASSIUM SERUM 3.8 MEQ/L (3.5-5.1); SODIUM LEVEL 140 MEQ/L (136-145); TOTAL PROTEIN 6.6 GM/DL (6.4-8.2)
[2021-08-07] MEDS ORDERED: LEVEMIR (INSULIN DETEMIR) 1 UNITS/0.01ML SC ONE (07:15)
[2021-08-07] MEDS: HumaLOG INSULIN (NovoLOG) PER UNIT SC SCH ×3 (07:30→16:54)
[2021-08-07 08:00] VITALS: BP 94/57
[2021-08-07] MEDS: BENZTROPINE 0.5 MG TAB PO SCH (08:31)
[2021-08-07] MEDS: busPIRone 5 MG TAB PO SCH ×2 (08:31→16:54)
[2021-08-07] MEDS: ENOXAPARIN 40MG/0.4ML SYRINGE (J1650 PER 10MG) SC SCH (08:31)
[2021-08-07] MEDS: NICOTINE 21MG/24HR 1 EA TRANSDERMAL TD SCH (08:33)
[2021-08-07] MEDS ORDERED: METHADONE 10 MG TAB (S0109) PO ONE (09:30)
[2021-08-07 10:51] LABS: INR 0.96; PROTHROMBIN TIME 13.2 SECONDS (12.7-14.5)
[2021-08-07 10:52] LABS: PARTIAL THROMBOPLASTIN TIME 31.7 SECONDS (25.9-37.0)
[2021-08-07 12:00] VITALS: BP 106/73
[2021-08-07] MEDS ORDERED: LANC30MI XX (15:27)
[2021-08-07] MEDS ORDERED: BLOOKIT21 XX ×2 (15:27→16:14)
[2021-08-07] MEDS ORDERED: ALCOPAD25 TOP (15:27)
[2021-08-07] MEDS ORDERED: LEVE1INJ5 SC ×2 (15:27→15:49)
[2021-08-07] MEDS ORDERED: PEN1MIS21 SC (15:27)
[2021-08-07] MEDS ORDERED: GLUC1TES2 XX (15:27)
[2021-08-07] MEDS ORDERED: METF-838 PO (15:39)
[2021-08-07 16:00] VITALS: BP 111/63
[2021-08-07] MEDS ORDERED: BASA100I SC (16:12)
--- NOTE | 2021-08-07 16:12 | MHCRPDOC ---
[facility] Consultation Consultation DATE OF CONSULTATION: 08/07/21 CONSULTATION REQUESTED BY: Lester Garcia REASON FOR CONSULTATION: History of schizophrenia and presentation request with circumstances related to an unresponsive event. RELEVANT HISTORY: 45-year-old man who presents to the hospital following being found in a [employer] parking lot unresponsive. On initial evaluation he was found to have an elevated fasting glucose of 343 along with elevated ammonia levels and was presumed to be in an altered mental status state secondary to hyperammonemia. Initially patient stated that he had been taking Xanax deflation prescribed his medication, however toxic screen shows that he is positive only for cannabinoids and opioids. It is unclear what he may have taken in, however given his current presentation the hyperammonemic state was likely the cause of his altered mental status. Reviewed with him his past history of treatment he states that he has been diagnosed schizophrenia and takes risperidone and mirtazapine for management of this, along with buspirone for anxiety. He feels his medication working well for him and that he is not currently endorsing suicidal or homicidal ideation. He does note that he has had these Thoughts in the past and has been admitted to the hospital multiple times for the same. PAST PSYCHIATRIC HISTORY: Diagnosis schizophrenia versus schizoaffective disorder. Multiple past hospitalizations per Akbar, however does not remember when the last one was. States that he does have a history of attempting suicide along with self injury but is not engaged in such in over a year. He follows with psychiatry services through behavioral health at [facility] in [place], and does not member the name of his provider. Reports a long history of being trialed multiple of her medications, does feel that the current ones are well for him. PAST MEDICAL HISTORY: Hepatitis C with cirrhosis of the liver FAMILY HISTORY: Reports significant for mental illness in the family, along with significant substance use in the family, opiates have been very common, his brother from opiate use. His father of cirrhosis of the liver secondary to alcoholism. PERSONAL AND SOCIAL HISTORY: The patient was born and raised in [place]. Resides in: [place] Marital Status: S Single Children: None Employment: Disabled SUBSTANCE ABUSE HISTORY: Smoking: Smokes high a lot, difficult to quantify previous records document 3 packs a day, patient is able to provide adequate answers ETOH: Significant known history of drinking, again patient unable to quantify Illicit Drugs: Utilizes cannabis along with opiates and regular basis. Is currently prescribed methadone for opioid maintenance which he received through [facility] LEGAL HISTORY: Denies a history of legal difficulties. MENTAL STATUS EXAMINATION: Patient is a 45-year old male, who is dressed in hospital clothing, hygiene and grooming are poor. Speech is clear, spontaneous, slow in nature, normal volume and tone. Language skills are intact. Thought processes including: Linear, goal-directed. Thought content: Wants to return home as he is talking, misses them, denies suicidal or homicidal ideation and. Abstract reasoning, and computation: [place]. Description of associations: Linear. Description of abnormal or psychotic thoughts: Denies AVH, paranoia, or delusions. Did not appear paranoid or delusional during interview. Judgment: Poor. Insight: Poor. Orientation to x3. Recent and remote memory: Mostly intact, did have some amnesia secondary to his altered mental status but able to remember events prior to that and was able to perform 2 of 3 on 5-minute recall testing. Attention span and concentration: Distractible, has a difficult time focusing on sustained tasks does have a history of intellectual disability. Mood: "I miss my dog". Affect: Tired, congruent with stated mood; stable. DIAGNOSIS: 1. Schizophrenia. 2. Major depressive disorder, recurrent, moderate 3. Intellectual disability PLAN: 1. Patient has been medically stabilized and per his primary team, they requesting evaluation to determine if there are additional psychiatric needs. He appears to be at baseline after reviewing information from previous hospitalizations. Patient endorsed that he has been taking his medications as prescribed and follows up regularly with his appointments. No concerns at this time, does not appear to be a danger to himself or other, appears able to take care of himself. Would recommend discharge to home with follow-up as routine providers. Vital Signs Vital Signs Date Time Temp Pulse Resp B/P (MAP) Pulse Ox O2 Delivery O2 Flow Rate FiO2 08/07/21 12:00 97.6 49 20 106/73 (84) 88 Room Air 08/06/21 12:00 2.0 Laboratory Data 24H Labs Laboratory Tests 2 08/06/21 20:25: Bedside Glucose (Misc Panel) 514*H 08/06/21 23:30: Bedside Glucose (Misc Panel) 379H 08/07/21 05:00: Nucleated Red Blood Cells % (auto) 0.0, Immature Platelet Fraction 5.8, Anion Gap 5L, Glomerular Filtration Rate > 60.0, Calcium Level 8.4L, Total Bilirubin 0.6, Aspartate Amino Transf (AST/SGOT) 100H, Alanine Aminotransferase (ALT/SGPT) 110H, Alkaline Phosphatase 131H, Total Protein 6.6, Albumin 2.7L, Albumin/Globulin Ratio 0.7, B-Hydroxybutyrate 1.26 08/07/21 10:23: Prothrombin Time 13.2, Prothromb Time International Ratio 0.96, Activated Partial Thromboplast Time 31.7 08/07/21 12:28: Bedside Glucose (Misc Panel) 350H Home Medications Current Medications Current Medications Medications (Trade) Dose Ordered Sig/Casimiro Route PRN Reason Start Time Stop Time Status Last Admin Dose Admin Benztropine Mesylate (Cogentin) 0.5 mg BID PO 08/06/21 21:00 08/07/21 08:31 Buspirone HCl (Buspar) 15 mg TID PO 08/06/21 16:00 08/07/21 08:31 Dextrose (Dextrose 50%) 25 ml ASDIRECTED PRN IV SEE LABEL COMMENTS 08/06/21 02:55 Enoxaparin Sodium (Lovenox) 40 mg DAILY SC 08/06/21 09:00 08/07/21 08:31 Glucagon (Glucagon) 1 mg ASDIRECTED PRN SC SEE LABEL COMMENTS 08/06/21 02:55 Glucose (Glucose) 16 GM ASDIRECTED PRN PO SEE LABEL COMMENTS 08/06/21 02:55 Home Med (Home Med List Complete!) ASDIRECTED XX 08/06/21 13:35 08/06/21 13:32 DC Insulin Human Lispro (HumaLOG INSULIN) 12 units STAT STAT SC 08/06/21 20:31 08/06/21 20:33 DC 08/06/21 20:42 Insulin Human Lispro (HumaLOG INSULIN) SEE PROTOCOL TABLE AC SC 08/06/21 07:30 08/07/21 12:40 Insulin Human Lispro (HumaLOG INSULIN) SEE PROTOCOL TABLE QHS SC 08/06/21 21:00 Mirtazapine (Remeron) 30 mg QHS PO 08/06/21 21:00 08/06/21 20:19 Naloxone HCl (Narcan) 0.4 mg STAT STAT IV 08/06/21 03:48 08/06/21 03:50 DC 08/06/21 03:52 Nicotine (Nicoderm Cq 21mg) 1 patch DAILY TD 08/06/21 09:00 08/07/21 08:33 Risperidone (RisperDAL) 1 mg QHS PO 08/06/21 21:00 08/06/21 20:19 Sodium Chloride 1,000 ml @ 125 mls/hr Q8H IV 08/06/21 04:40 08/06/21 20:39 DC 08/06/21 15:19 Scheduled Benztropine Mesylate (Benztropine Mesylate) 0.5 Mg Tablet, 0.5 MG PO BID, (Reported) Blood Sugar Diagnostic (Advanced Glucose Test Strips) 1 Each Strip, 1 STRIP XX ASDIRECTED Buspirone HCl (Buspirone HCl) 15 Mg Tablet, 15 MG PO TID, (Reported) Insulin Detemir (Levemir Flextouch) 100 Unit/1 Ml Insuln.pen, 10 UNIT SC DAILY Metformin HCl (Metformin HCl ER) 500 Mg Tab.er.24h, 500 MG PO DAILY Methadone HCl (Methadone HCl) 10 Mg/1 Ml Oral.conc, 110 MG PO DAILY, (Reported) Mirtazapine (Remeron) 30 Mg Tablet, 30 MG PO QHS, (Reported) Paliperidone Palmitate (Invega Sustenna) 234 Mg/1.5 Ml Syringe, 234 MG IM QMONTH, (Reported) NEXT DOSE DUE 08/21/21 Risperidone (Risperidone) 1 Mg Tablet, 1 MG PO QHS, (Reported) Miscellaneous Medications [Patient Comment] , (Reported) VERIFIED WITH [facility] Allergies Coded Allergies: nortriptyline (Verified Allergy, Unknown, 07/09/19) chlorpromazine (Unverified Adverse Reaction, Severe, Lockjaw, 05/26/21) Information provided by mother who cares for him. haloperidol (Verified Adverse Reaction, Severe, EPS/ LOCKJAW, 05/26/21) MELODY VILLARREAL MD Aug 07, 2021 16:12
--- NOTE | 2021-08-07 18:44 | DS.PDOC ---
Discharge Summary General Date of Admission Aug 06, 2021 at 05:06 Date of Discharge 08/07/2021 Primary Care Physician: LIU MACE DO Attending Physician: GITA RODARTE DO Specialist/Consultants Involve: MELODY VILLARREAL MD Discharge Summary PROCEDURES PERFORMED DURING STAY: None. ADMITTING DIAGNOSES: 1. Altered mental status secondary to elevated ammonia, hypoglycemia, polysubstance abuse. 2. History of polysubstance abuse 3. Elevated LFTs with history of hepatitis C 4. Thrombocytopenia 5. Hyperammonemia 6. Type 2 diabetes mellitus 7. Schizophrenia DISCHARGE DIAGNOSES: 1. Altered mental status secondary to elevated ammonia, resolved 2. History of polysubstance abuse 3. Elevated LFTs with history of hepatitis C 4. Thrombocytopenia 5. Hyperammonemia 6. Type 2 diabetes mellitus 7. Schizophrenia COMPLICATIONS/CHIEF COMPLAINT: Drug Overdose,Hyperammonemia. HISTORY OF PRESENT ILLNESS: Patient is a 45-year-old male who was brought to the emergency department via EMS after being found lying in the [employer] parking lot unresponsive. Per EMS, patient was not responding to verbal stimulus. Upon arrival to the ED, patient was oriented to person only and was able to follow commands. Upon mission evaluation, patient is sedated and unresponsive to verbal and physical stimuli. HPI and history gathered through chart review and ED signout. In the emergency department vital signs are normal. Patient was admitted for altered mental status HOSPITAL COURSE: On the first day of the patient hospitalization, patient became more awake and was alert and oriented and was able to answer questions. Patient states that he was out with friends in [place] and did not know how he ended up in the hospital. Patient was found to have an elevated ammonia level at 50 which did improve slightly but was not rechecked as the patient's mental status improved. Patient did receive a dose of Narcan which only minimally helped the patient's awareness. Patient's tox screen is positive for methadone however, viry lee is under the care of [facility] for methadone treatment. Patient states that he was using Xanax as he feels like he needs this for his anxiety. Patient was more awake and alert throughout the day. Once patient received his methadone, patient was more calm throughout the day. Patient had mild improvement of his AST and ALT. Patient does have a history of hepatitis C which may be the cause of the patient's elevated transaminases. Patient does deny alcohol use. Patient does have fatty changes of the liver seen on ultrasound but did not appear to be cirrhotic. Patient did not have any ascites. Patient states he is not aware that he is diabetic although patient does have an A1c of 11.9. Patient was started on long-acting insulin and was discharged home with Metformin. Patient was feeling better and was asking to go home. Because of the patient's psychiatric history, I had psychiatry see the patient to ensure the patient did not meet criteria for inpatient admission in the inpatient mental health unit although I do not believe this was a drug overdose. Patient was seen by psychiatry who stated the patient did not meet criteria for inpatient admission into the inpatient mental health unit. Patient was then deemed ready for discharge home and was discharged home on 08/07/2021. DISCHARGE MEDICATIONS: Please see below. ALLERGIES: Please see below. PHYSICAL EXAMINATION ON DISCHARGE: VITAL SIGNS: Please see below. General: Alert and oriented male patient who was sitting up in bed when I walked in. Patient did not appear to be in any acute distress. HEENT: Normocephalic, atraumatic, moist mucous membranes. Neck: No lymphadenopathy or thyromegaly Cardiac: Regular rate and rhythm, no murmurs, normal S1, normal S2 Pulm: Clear to auscultation bilaterally. No wheezes, rhonchi, rales Abd: Nondistended, nontender to palpation, normal bowel sounds Ext: No edema bilateral lower extremities LABORATORY DATA: Please see below. IMAGING: Chest x-ray performed on 08/05/2021 was reported to have negative. Poor inspiratory chest without significant change from 04/30/2016. CT of the head performed without contrast on 08/05/2021 was reported to show negative noncontrast head CT without change from 9020. PROGNOSIS: Liver ultrasound performed on 08/06/2021 was reported to show liver echotexture is heterogeneous and slightly hyperechoic suggestive of fatty change. The right lobe of the liver measures 16.5 cm in length which is normal. There are 3 small hypoechoic probable polyps attached to the gallbladder wall measuring 3 mm, 4 mm, and 4 mm in size. The gallbladder wall is normal in thickness measuring 3 mm. Pancreas is secured by overlying bowel gas. The right kidney is normal measuring 11.5 x 6.1 x 5.5 cm in size. No hydronephrosis. No ascites. ACTIVITY: As tolerated. DIET: Consistent carbohydrate DISCHARGE PLAN: Discharge home with home health service DISPOSITION: Home health service DISCHARGE INSTRUCTIONS: 1. Follow-up with your primary care provider within 3 to 5 days of discharge. 2. Continue taking glargine insulin 10 units once a day. Check your blood sugar prior to taking the insulin. Check blood sugar if you have any concerning signs for hypoglycemia 3. Return to the emergency department if symptoms worsen ITEMS TO FOLLOWUP ON ON OUTPATIENT: 1. Follow-up diabetic treatment, transaminitis, thrombocytopenia. DISCHARGE CONDITION: Stable. TIME SPENT ON DISCHARGE: 35 minutes. Vital Signs/I&Os Vital Signs Date Time Temp Pulse Resp B/P (MAP) Pulse Ox O2 Delivery O2 Flow Rate FiO2 08/07/21 16:00 97.3 52 22 111/63 (79) 97 Room Air 08/06/21 12:00 2.0 I&O- Last 24 Hours up to 6 AM 08/07/21 06:00 Intake Total 2290 ml Balance 2290 ml Laboratory Data Labs 24H Laboratory Tests 2 08/06/21 20:25: Bedside Glucose (Misc Panel) 514*H 08/06/21 23:30: Bedside Glucose (Misc Panel) 379H 08/07/21 05:00: Nucleated Red Blood Cells % (auto) 0.0, Immature Platelet Fraction 5.8, Anion Gap 5L, Glomerular Filtration Rate > 60.0, Calcium Level 8.4L, Total Bilirubin 0.6, Aspartate Amino Transf (AST/SGOT) 100H, Alanine Aminotransferase (ALT/SGPT) 110H, Alkaline Phosphatase 131H, Total Protein 6.6, Albumin 2.7L, Albumin/Globulin Ratio 0.7, B-Hydroxybutyrate 1.26 08/07/21 10:23: Prothrombin Time 13.2, Prothromb Time International Ratio 0.96, Activated Partial Thromboplast Time 31.7 08/07/21 12:28: Bedside Glucose (Misc Panel) 350H 08/07/21 16:40: Bedside Glucose (Misc Panel) 260H CBC/BMP Laboratory Tests 08/07/21 05:00 FSBS Laboratory Tests Test 08/06/21 20:25 08/06/21 23:30 08/07/21 12:28 08/07/21 16:40 Range/Units Bedside Glucose (Misc Panel) 514 379 350 260 70-105 MG/DL Discharge Medications Scheduled Benztropine Mesylate (Benztropine Mesylate) 0.5 Mg Tablet, 0.5 MG PO BID, (Reported) Blood Sugar Diagnostic (Advanced Glucose Test Strips) 1 Each Strip, 1 STRIP XX ASDIRECTED Buspirone HCl (Buspirone HCl) 15 Mg Tablet, 15 MG PO TID, (Reported) Insulin Glargine,Hum.rec.anlog (Basaglar Kwikpen U-100) 100 Unit/1 Ml Insuln.pen, 10 UNIT SC DAILY Metformin HCl (Metformin HCl ER) 500 Mg Tab.er.24h, 500 MG PO DAILY Methadone HCl (Methadone HCl) 10 Mg/1 Ml Oral.conc, 110 MG PO DAILY, (Reported) Mirtazapine (Remeron) 30 Mg Tablet, 30 MG PO QHS, (Reported) Paliperidone Palmitate (Invega Sustenna) 234 Mg/1.5 Ml Syringe, 234 MG IM QMONTH, (Reported) NEXT DOSE DUE 08/21/21 Risperidone (Risperidone) 1 Mg Tablet, 1 MG PO QHS, (Reported) Miscellaneous Medications [Patient Comment] , (Reported) VERIFIED WITH [facility]O Allergies Coded Allergies: nortriptyline (Verified Allergy, Unknown, 07/09/19) chlorpromazine (Unverified Adverse Reaction, Severe, Lockjaw, 05/26/21) Information provided by mother who cares for him. haloperidol (Verified Adverse Reaction, Severe, EPS/ LOCKJAW, 05/26/21) GITA RODARTE DO Aug 07, 2021 18:44
== END 2021-08-07 18:05 | disposition home health service (06) | DRG 423 ==
LOC: M ED 22:09 → M ED INP 08-06 05:06 → ENRESERV 08-06 06:05 → M PCU 08-06 07:35
PROVIDERS: ADMIT Family Medicine; ATTEND Family Medicine
DX: E72.20 Disorder of urea cycle metabolism, unspecified (principal); K76.9 Liver disease, unspecified; R41.82 Altered mental status, unspecified; E11.9 Type 2 diabetes mellitus without complications; D69.6 Thrombocytopenia, unspecified; B18.2 Chronic viral hepatitis C; F20.9 Schizophrenia, unspecified; Z79.899 Other long term (current) drug therapy; Z79.4 Long term (current) use of insulin; Z88.8 Allergy status to other drugs, medicaments and biological substances; F79 Unspecified intellectual disabilities

== ENCOUNTER 2021-11-11 19:49 | Inpatient (IN) | payer MEDICAID, OTHER ==
[~2021-11-11] VITALS: Ht 162.6 cm; Wt 82.9 kg
[~2021-11-11 19:49] MED LIST changes: +ALCOPAD25 TOP; +BASA100I SC; +BENZ0.5T23 PO; +BLOOKIT21 XX; +BUSP15TA47 PO; +GLUC1TES2 XX; +INVE234I IM; +LANC30MI XX; +LEVE1INJ5 SC; +METF-838 PO; +METH10CO PO; +MIRT-60 PO; +PATIENT COMMENT; +PEN1MIS21 SC; +RISP-8 PO
[2021-11-11] MEDS ORDERED: ALPRAZolam 0.5 MG TAB PO ONE (20:35)
[2021-11-11 21:19] LABS: AMPHETAMINES LEVEL URINE NEGATIVE (NEGATIVE); BARBITURATES URINE NEGATIVE (NEGATIVE); BENZODIAZEPINES URINE NEGATIVE (NEGATIVE); CANNABINOIDS URINE POSITIVE (NEGATIVE); COCAINE METABOLITE URINE NEGATIVE (NEGATIVE); METHADONE URINE POSITIVE (NEGATIVE); OPIATES URINE NEGATIVE (NEGATIVE); PHENCYCLIDINE URINE NEGATIVE (NEGATIVE)
[2021-11-11 21:24] LABS: HEMATOCRIT 48.2 % (42.0-52.0); HEMOGLOBIN 16.2 g/dl (13.5-17.5); MEAN CORPUSCULAR HEMOGLOBIN 30.9 pg (27.0-33.0); MEAN CORPUSCULAR HGB CONC 33.6 g/dl (32.0-36.5); RED BLOOD COUNT 5.24 10^6/uL (4.30-6.10); WHITE BLOOD COUNT 3.7 10^3/uL (4.0-10.0)
[2021-11-11 21:26] LABS: PLATELET COUNT, AUTOMATED 85 10^3/uL (150-450)
[2021-11-11 21:50] LABS: ACETAMINOPHEN LEVEL < 2.0 UG/ML (10.0-30.0); ALBUMIN 3.7 GM/DL (3.2-5.2); ALT/SGPT 139 U/L (12-78); BILIRUBIN,DIRECT 0.4 MG/DL (0.0-0.2); BILIRUBIN,TOTAL 0.6 MG/DL (0.2-1.0); BLOOD UREA NITROGEN 5 MG/DL (7-18); CALCIUM LEVEL 8.8 MG/DL (8.5-10.1); CARBON DIOXIDE LEVEL 29 MEQ/L (21-32); CHLORIDE LEVEL 98 MEQ/L (98-107); CREATININE FOR GFR 0.78 MG/DL (0.70-1.30); ETHYL ALCOHOL (ETHANOL) < 0.003 % (0.000-0.010); GLOMERULAR FILTRATION RATE > 60.0 (>60); GLUCOSE, FASTING 351 MG/DL (70-100); POTASSIUM SERUM 4.4 MEQ/L (3.5-5.1); SALICYLATE LEVEL < 1.7 MG/DL (5.0-30.0); SODIUM LEVEL 135 MEQ/L (136-145)
[2021-11-11 21:55] LABS: RSV AMPLIFICATION NEGATIVE (NEGATIVE)
[2021-11-12] MEDS ORDERED: HumuLIN R (REGULAR) INSULIN (NovoLIN R) **100U/ML** PER UNIT IV ONE (02:00)
[2021-11-12] MEDS ORDERED: MOM 30ML SUSPENSION UDC PO PRN (04:00)
[2021-11-12] MEDS ORDERED: MAALOX 30 ML SUSP *UDC PO PRN (04:00)
[2021-11-12] MEDS: traZODone 50 MG TAB PO PRN ×2 (04:37→21:31)
[2021-11-12 05:30] VITALS: BP 110/75
[2021-11-12] MEDS: metFORMIN (GLUCOPHAGE) 1000 MG TABLET PO SCH ×2 (08:00→17:30)
[2021-11-12] MEDS ORDERED: BENZ0.5T23 PO (08:27)
[2021-11-12] MEDS ORDERED: MIRT-60 PO (08:27)
[2021-11-12] MEDS ORDERED: LATU80TA2 PO (08:27)
[2021-11-12] MEDS ORDERED: LEXA5TAB13 PO (08:27)
[2021-11-12] MEDS ORDERED: METH10CO PO (08:27)
[2021-11-12] MEDS ORDERED: VRAY1.5C PO (08:27)
[2021-11-12] MEDS ORDERED: INVE234I IM (08:27)
[2021-11-12] MEDS ORDERED: BUSP30TA PO (08:27)
[2021-11-12] MEDS ORDERED: DOXA2TAB3 PO (08:27)
[2021-11-12] MEDS ORDERED: LATU40TA2 PO (08:27)
[2021-11-12] MEDS ORDERED: DOXA1TAB67 PO (08:27)
[2021-11-12] MEDS: THIAMINE 100 MG TAB PO SCH ×2 (09:00→20:09)
[2021-11-12] MEDS: MULTIVITAMINS/MINERALS THERAP 1 TAB PO SCH (09:00)
[2021-11-12] MEDS: FOLIC ACID 1 MG TAB PO SCH (09:00)
[2021-11-12] MEDS ORDERED: DEXTROSE 50% 50 ML SYRINGE IV PRN (10:20)
[2021-11-12] MEDS ORDERED: GLUCOSE 4GM CHEW TABLET PO PRN (10:20)
[2021-11-12] MEDS ORDERED: GLUCAGON INJ 1MG VIAL SC PRN (10:20)
[2021-11-12] MEDS ORDERED: LORazepam 2 MG TAB PO PRN (10:25)
[2021-11-12] MEDS ORDERED: METHADONE 10 MG TAB (S0109) PO ONE (10:30)
[2021-11-12] MEDS ORDERED: MIRA3350 PO (11:32)
[2021-11-12] MEDS ORDERED: METF-838 PO (11:32)
[2021-11-12] MEDS ORDERED: GABA-282 PO (11:32)
[2021-11-12] MEDS ORDERED: BASA100I SC (11:32)
[2021-11-12] MEDS: NICOTINE 21MG/24HR 1 EA TRANSDERMAL TD SCH (11:35)
[2021-11-12] MEDS: LEVEMIR (INSULIN DETEMIR) 1 UNITS/0.01ML SC SCH ×2 (11:39→21:00)
[2021-11-12] MEDS ORDERED: HOME MED LIST COMPLETE! XX SCH (11:45)
[2021-11-12 11:56] LABS: CHOLESTEROL RISK RATIO 7.818 (<5)
[2021-11-12] MEDS: HumaLOG INSULIN (NovoLOG) PER UNIT SC SCH ×3 (12:29→21:00)
[2021-11-12] MEDS: ESCITALOPRAM OXALATE 10 MG TAB (LEXAPRO) PO SCH (12:37)
[2021-11-12 14:02] VITALS: BP 135/72
[2021-11-12] MEDS: METHADONE 10 MG TAB (S0109) PO SCH (14:35)
[2021-11-12] MEDS: hydrOXYzine 25 MG TAB PO PRN ×2 (16:33→20:33)
[2021-11-12 17:06] LABS: HEMATOCRIT 47.7 % (42.0-52.0); MEAN CORPUSCULAR HEMOGLOBIN 31.1 pg (27.0-33.0); MEAN CORPUSCULAR HGB CONC 33.5 g/dl (32.0-36.5); MEAN CORPUSCULAR VOLUME 92.6 fl (80.0-96.0); PLATELET COUNT, AUTOMATED 98 10^3/uL (150-450); RED BLOOD COUNT 5.15 10^6/uL (4.30-6.10); WHITE BLOOD COUNT 3.8 10^3/uL (4.0-10.0)
[2021-11-12 17:54] VITALS: BP 140/90
[2021-11-12 18:11] LABS: ALBUMIN 3.4 GM/DL (3.2-5.2); ALT/SGPT 132 U/L (12-78); BILIRUBIN,DIRECT 0.3 MG/DL (0.0-0.2); BILIRUBIN,TOTAL 0.5 MG/DL (0.2-1.0); BLOOD UREA NITROGEN 10 MG/DL (7-18); CALCIUM LEVEL 8.9 MG/DL (8.5-10.1); CARBON DIOXIDE LEVEL 33 MEQ/L (21-32); CHLORIDE LEVEL 99 MEQ/L (98-107); CREATININE FOR GFR 0.61 MG/DL (0.70-1.30); GLOMERULAR FILTRATION RATE > 60.0 (>60); GLUCOSE, FASTING 150 MG/DL (70-100); POTASSIUM SERUM 4.2 MEQ/L (3.5-5.1); SODIUM LEVEL 137 MEQ/L (136-145); TOTAL PROTEIN 7.6 GM/DL (6.4-8.2)
[2021-11-12 18:35] LABS: HEMOGLOBIN A1c 7.2 %
[2021-11-12] MEDS ORDERED: PALIPERIDONE 3 MG ER TAB (INVEGA) PO SCH (21:00)
[2021-11-13] MEDS: hydrOXYzine 25 MG TAB PO PRN ×2 (01:34→09:45)
[2021-11-13] MEDS: HumaLOG INSULIN (NovoLOG) PER UNIT SC SCH ×4 (07:15→20:37)
[2021-11-13] MEDS: LEVEMIR (INSULIN DETEMIR) 1 UNITS/0.01ML SC SCH ×2 (09:00→20:37)
[2021-11-13] MEDS: NICOTINE 21MG/24HR 1 EA TRANSDERMAL TD SCH (09:13)
[2021-11-13] MEDS: MULTIVITAMINS/MINERALS THERAP 1 TAB PO SCH (09:13)
[2021-11-13] MEDS: ESCITALOPRAM OXALATE 10 MG TAB (LEXAPRO) PO SCH (09:14)
[2021-11-13] MEDS: METHADONE 10 MG TAB (S0109) PO SCH (09:14)
[2021-11-13] MEDS: THIAMINE 100 MG TAB PO SCH ×2 (09:14→20:38)
[2021-11-13] MEDS: FOLIC ACID 1 MG TAB PO SCH (09:14)
[2021-11-13] MEDS: metFORMIN (GLUCOPHAGE) 1000 MG TABLET PO SCH ×2 (09:15→17:04)
[2021-11-13] MEDS ORDERED: GABAPENTIN 100 MG CAP PO PRN (10:55)
[2021-11-13] MEDS: PALIPERIDONE 3 MG ER TAB (INVEGA) PO SCH ×2 (12:38→20:38)
[2021-11-13 14:30] VITALS: BP 126/76
[2021-11-13] MEDS: OMEGA-3 1000MG CAPSULE PO SCH ×2 (14:41→20:38)
[2021-11-13] MEDS ORDERED: GABAPENTIN 300 MG CAP PO ONE (16:00)
[2021-11-13 16:10] VITALS: BP 126/76
[2021-11-13 20:00] VITALS: BP 141/84
[2021-11-13 20:40] VITALS: BP 141/84
[2021-11-13] MEDS: GABAPENTIN 400MG CAP PO SCH ×2 (21:00→22:07)
[2021-11-13] MEDS: traZODone 50 MG TAB PO PRN (22:06)
[2021-11-14 06:30] VITALS: BP 95/56
[2021-11-14] MEDS: HumaLOG INSULIN (NovoLOG) PER UNIT SC SCH ×4 (06:33→21:00)
[2021-11-14] MEDS: LEVEMIR (INSULIN DETEMIR) 1 UNITS/0.01ML SC SCH ×2 (09:00→21:00)
[2021-11-14] MEDS: NICOTINE 21MG/24HR 1 EA TRANSDERMAL TD SCH (09:45)
[2021-11-14] MEDS: METHADONE 10 MG TAB (S0109) PO SCH (09:45)
[2021-11-14] MEDS: ESCITALOPRAM OXALATE 10 MG TAB (LEXAPRO) PO SCH (09:45)
[2021-11-14] MEDS: metFORMIN (GLUCOPHAGE) 1000 MG TABLET PO SCH ×2 (09:46→17:23)
[2021-11-14] MEDS: FOLIC ACID 1 MG TAB PO SCH (09:46)
[2021-11-14] MEDS: MULTIVITAMINS/MINERALS THERAP 1 TAB PO SCH (09:46)
[2021-11-14] MEDS: OMEGA-3 1000MG CAPSULE PO SCH ×2 (09:46→21:53)
[2021-11-14] MEDS: PALIPERIDONE 3 MG ER TAB (INVEGA) PO SCH ×2 (09:46→21:53)
[2021-11-14] MEDS: GABAPENTIN 400MG CAP PO SCH ×3 (09:46→21:52)
[2021-11-14] MEDS: THIAMINE 100 MG TAB PO SCH ×2 (09:46→21:52)
[2021-11-14] MEDS ORDERED: PALIPERIDONE PALMITATE 234MG/1.5ML INJ (INVEGA)(FREE PSY INPT ONLY) IM ONE (14:00)
[2021-11-14 16:23] VITALS: BP 118/81
[2021-11-14] MEDS: traZODone 100 MG TAB PO PRN (21:53)
[2021-11-15 06:42] VITALS: BP 136/80
[2021-11-15] MEDS: HumaLOG INSULIN (NovoLOG) PER UNIT SC SCH ×4 (06:43→21:00)
[2021-11-15 06:45] VITALS: BP 136/80
[2021-11-15] MEDS: GABAPENTIN 400MG CAP PO SCH ×3 (08:30→21:23)
[2021-11-15] MEDS: MULTIVITAMINS/MINERALS THERAP 1 TAB PO SCH (08:30)
[2021-11-15] MEDS: FOLIC ACID 1 MG TAB PO SCH (08:30)
[2021-11-15] MEDS: METHADONE 10 MG TAB (S0109) PO SCH (08:30)
[2021-11-15] MEDS: metFORMIN (GLUCOPHAGE) 1000 MG TABLET PO SCH ×2 (08:30→17:11)
[2021-11-15] MEDS: ESCITALOPRAM OXALATE 10 MG TAB (LEXAPRO) PO SCH (08:30)
[2021-11-15] MEDS: NICOTINE 21MG/24HR 1 EA TRANSDERMAL TD SCH (08:31)
[2021-11-15] MEDS: OMEGA-3 1000MG CAPSULE PO SCH ×2 (08:31→21:23)
[2021-11-15] MEDS: PALIPERIDONE 3 MG ER TAB (INVEGA) PO SCH ×2 (08:31→21:23)
[2021-11-15] MEDS: LEVEMIR (INSULIN DETEMIR) 1 UNITS/0.01ML SC SCH ×2 (08:32→21:00)
[2021-11-15] MEDS: ACETAMINOPHEN TAB 650MG DOSE (2X325MG) PO PRN (08:34)
[2021-11-15 16:32] VITALS: BP 119/88
[2021-11-15] MEDS: traZODone 100 MG TAB PO PRN (21:23)
[2021-11-16] MEDS: ACETAMINOPHEN TAB 650MG DOSE (2X325MG) PO PRN (00:34)
[2021-11-16 06:21] VITALS: BP 111/58
[2021-11-16] MEDS: HumaLOG INSULIN (NovoLOG) PER UNIT SC SCH ×4 (06:46→21:00)
[2021-11-16] MEDS: metFORMIN (GLUCOPHAGE) 1000 MG TABLET PO SCH ×2 (08:56→17:00)
[2021-11-16] MEDS: LEVEMIR (INSULIN DETEMIR) 1 UNITS/0.01ML SC SCH ×2 (09:00→21:00)
[2021-11-16] MEDS: NICOTINE 21MG/24HR 1 EA TRANSDERMAL TD SCH (09:20)
[2021-11-16] MEDS: FOLIC ACID 1 MG TAB PO SCH (09:21)
[2021-11-16] MEDS: OMEGA-3 1000MG CAPSULE PO SCH ×2 (09:21→22:38)
[2021-11-16] MEDS: PALIPERIDONE 3 MG ER TAB (INVEGA) PO SCH ×2 (09:21→21:00)
[2021-11-16] MEDS: ESCITALOPRAM OXALATE 10 MG TAB (LEXAPRO) PO SCH (09:21)
[2021-11-16] MEDS: GABAPENTIN 400MG CAP PO SCH ×3 (09:21→22:37)
[2021-11-16] MEDS: MULTIVITAMINS/MINERALS THERAP 1 TAB PO SCH (09:21)
[2021-11-16] MEDS: METHADONE 10 MG TAB (S0109) PO SCH (09:22)
[2021-11-16] MEDS: BENZTROPINE 1 MG TAB PO PRN (11:42)
[2021-11-16] MEDS ORDERED: traZODone 50 MG TAB PO PRN (11:55)
[2021-11-16 18:23] VITALS: BP 130/76
[2021-11-16 20:11] VITALS: BP 100/62
[2021-11-16 21:14] LABS: APPEARANCE, URINE CLEAR (CLEAR); BACTERIA, URINE AUTO NEGATIVE (NEGATIVE); BILIRUBIN, URINE AUTO NEGATIVE (NEGATIVE); BLOOD, URINE BLOOD NEGATIVE (NEGATIVE); COLOR, URINE YELLOW (YELLOW); GLUCOSE, URINE (UA) AUTO NEGATIVE (NEGATIVE); KETONE, URINE AUTO NEGATIVE (NEGATIVE); LEUKOCYTE ESTERASE, URINE AUTO TRACE (NEGATIVE); MUCUS, URINE SMALL (NEGATIVE); NITRITE, URINE AUTO NEGATIVE (NEGATIVE); PROTEIN, URINE AUTO NEGATIVE (NEGATIVE); RBC, URINE AUTO 1 /HPF (0-3); SPECIFIC GRAVITY URINE AUTO 1.023 (1.002-1.035); SQUAMOUS EPITHELIAL CELL UR AU 0 /HPF (0-6); WBC, URINE AUTO 0 /HPF (0-3)
[2021-11-17] MEDS: HumaLOG INSULIN (NovoLOG) PER UNIT SC SCH ×2 (07:10→12:00)
[2021-11-17 07:22] VITALS: BP 117/80
[2021-11-17] MEDS: metFORMIN (GLUCOPHAGE) 1000 MG TABLET PO SCH (07:50)
[2021-11-17] MEDS: METHADONE 10 MG TAB (S0109) PO SCH (08:15)
[2021-11-17] MEDS: PALIPERIDONE 3 MG ER TAB (INVEGA) PO SCH (08:16)
[2021-11-17] MEDS: ESCITALOPRAM OXALATE 10 MG TAB (LEXAPRO) PO SCH (08:16)
[2021-11-17] MEDS: LEVEMIR (INSULIN DETEMIR) 1 UNITS/0.01ML SC SCH (08:16)
[2021-11-17] MEDS: OMEGA-3 1000MG CAPSULE PO SCH (08:16)
[2021-11-17] MEDS: GABAPENTIN 400MG CAP PO SCH (08:16)
[2021-11-17] MEDS: BENZTROPINE 1 MG TAB PO PRN (08:28)
[2021-11-17] MEDS: NICOTINE 21MG/24HR 1 EA TRANSDERMAL TD SCH (09:00)
[2021-11-17] MEDS ORDERED: PALIPERIDONE PALMITATE 156MG/1ML INJ(INVEGA)(FREE PSY INPT ONLY) IM ONE (09:00)
[2021-11-17] MEDS ORDERED: INVE234I IM (10:28)
[2021-11-17] MEDS ORDERED: BENZ-52 PO (10:28)
[2021-11-17] MEDS ORDERED: METF10004 PO (10:28)
[2021-11-17] MEDS ORDERED: LEXA1TAB PO (10:28)
[2021-11-17] MEDS ORDERED: FISH1CAP26 PO (10:28)
[2021-11-17] MEDS ORDERED: PALI1TAB2 PO (10:28)
[2021-11-17] MEDS ORDERED: TRAZ-252 PO (10:28)
[2021-11-17] MEDS ORDERED: GABA-283 PO (10:28)
[2021-11-17] MEDS ORDERED: NICO21PAT TD (10:28)
== END 2021-11-17 13:21 | disposition home or self-care (01) | DRG 750 ==
LOC: M ED 19:49 → M ED INP 11-12 03:59 → M PSY 11-12 05:22
PROVIDERS: ADMIT Student in an Organized Health Care Education/Training Program; ATTEND Student in an Organized Health Care Education/Training Program
DX: F25.1 Schizoaffective disorder, depressive type (principal); E11.9 Type 2 diabetes mellitus without complications; R45.851 Suicidal ideations; F79 Unspecified intellectual disabilities; F12.90 Cannabis use, unspecified, uncomplicated; F17.200 Nicotine dependence, unspecified, uncomplicated; F10.10 Alcohol abuse, uncomplicated; F11.90 Opioid use, unspecified, uncomplicated; F84.0 Autistic disorder; Z79.899 Other long term (current) drug therapy; Z79.4 Long term (current) use of insulin; Z88.8 Allergy status to other drugs, medicaments and biological substances; F41.9 Anxiety disorder, unspecified

== ENCOUNTER 2021-12-01 10:51 | Emergency (ER) | payer MEDICAID, OTHER ==
[~2021-12-01] VITALS: Ht 160 cm; Wt 83.6 kg
[~2021-12-01 10:51] MED LIST changes: +BUSP30TA PO; +DOXA1TAB67 PO; +DOXA2TAB3 PO; +FISH1CAP26 PO; +GABA-282 PO; +GABA-283 PO; +LATU40TA2 PO; +LATU80TA2 PO; +LEXA1TAB PO; +LEXA5TAB13 PO; +METF10004 PO; +MIRA3350 PO; +PALI1TAB2 PO; +VRAY1.5C PO
[2021-12-01 12:23] LABS: BASO % 0.2 % (0.0-1.0); EOS # 0.1 10^3/uL (0.0-0.5); EOS % 1.4 % (0.0-3.0); HEMATOCRIT 41.6 % (42.0-52.0); HEMOGLOBIN 14.8 g/dl (13.5-17.5); LYMPH # 1.1 10^3/uL (1.5-5.0); LYMPH % 21.9 % (24.0-44.0); MEAN CORPUSCULAR HEMOGLOBIN 31.6 pg (27.0-33.0); MEAN CORPUSCULAR HGB CONC 35.6 g/dl (32.0-36.5); MEAN CORPUSCULAR VOLUME 88.9 fl (80.0-96.0); MONO # 0.3 10^3/uL (0.0-0.8); NEUTROPHILS # 3.6 10^3/uL (1.5-8.5); NEUTROPHILS % 71.1 % (36.0-66.0); PLATELET COUNT, AUTOMATED 102 10^3/uL (150-450); RED BLOOD COUNT 4.68 10^6/uL (4.30-6.10)
[2021-12-01 12:51] LABS: OSMOLALITY SERUM 281 MOSM/KG (275-295)
[2021-12-01 12:56] LABS: ACETAMINOPHEN LEVEL < 2.0 UG/ML (10.0-30.0); ALBUMIN 3.9 GM/DL (3.2-5.2); ALT/SGPT 113 U/L (12-78); BILIRUBIN,DIRECT 0.2 MG/DL (0.0-0.2); BILIRUBIN,TOTAL 1.1 MG/DL (0.2-1.0); BLOOD UREA NITROGEN 10 MG/DL (7-18); CALCIUM LEVEL 9.1 MG/DL (8.5-10.1); CARBON DIOXIDE LEVEL 29 MEQ/L (21-32); CHLORIDE LEVEL 101 MEQ/L (98-107); CREATININE FOR GFR 0.71 MG/DL (0.70-1.30); ETHYL ALCOHOL (ETHANOL) < 0.003 % (0.000-0.010); GLOMERULAR FILTRATION RATE > 60.0 (>60); GLUCOSE, FASTING 90 MG/DL (70-100); POTASSIUM SERUM 5.3 MEQ/L (3.5-5.1); SALICYLATE LEVEL < 1.7 MG/DL (5.0-30.0); SODIUM LEVEL 134 MEQ/L (136-145); TOTAL PROTEIN 8.1 GM/DL (6.4-8.2)
[2021-12-01 13:47] LABS: AMPHETAMINES LEVEL URINE POSITIVE (NEGATIVE); BARBITURATES URINE NEGATIVE (NEGATIVE); BENZODIAZEPINES URINE POSITIVE (NEGATIVE); CANNABINOIDS URINE POSITIVE (NEGATIVE); COCAINE METABOLITE URINE NEGATIVE (NEGATIVE); METHADONE URINE POSITIVE (NEGATIVE); OPIATES URINE NEGATIVE (NEGATIVE); PHENCYCLIDINE URINE NEGATIVE (NEGATIVE)
[2021-12-01 16:03] VITALS: BP 130/83
== END 2021-12-01 16:06 | disposition home or self-care (01) ==
LOC: M ED 10:51
DX: F19.251 Other psychoactive substance dependence with psychoactive substance-induced psychotic disorder with hallucinations (principal); F20.9 Schizophrenia, unspecified; E11.9 Type 2 diabetes mellitus without complications; F11.10 Opioid abuse, uncomplicated; R94.31 Abnormal electrocardiogram [ECG] [EKG]; Z79.4 Long term (current) use of insulin; Z79.899 Other long term (current) drug therapy

== ENCOUNTER → 2021-12-16 | Outpatient (REF) | payer OTHER | LOC: M SFHCADAM 14:37 | PROVIDERS: ATTEND Family Medicine | DX: Z53.9 Procedure and treatment not carried out, unspecified reason (principal) ==

== ENCOUNTER → 2022-10-13 | Outpatient (REF) | payer OTHER | LOC: M SFHCADAM 10:52 | PROVIDERS: ATTEND Family Medicine | DX: Z53.9 Procedure and treatment not carried out, unspecified reason (principal) ==

== ENCOUNTER → 2022-11-26 | Outpatient (CLI) | payer OTHER ==
[~2022-11-26] MED LIST changes: -BENZ-52 PO; +BENZ1TAB5 PO; +INSU100I6 SC; -LEVE1INJ5 SC
[2022-11-26 20:00] LABS: THYROID STIMULATING HORMONE 1.566 uIU/ML (0.55-4.78)
[2022-11-26 20:01] LABS: TOTAL 25(OH) VITAMIN D 11.1 NG/ML (20.0-100.0)
[2022-11-26 20:02] LABS: ALBUMIN 3.6 G/DL (3.2-5.2); ALKALINE PHOSPHATASE 101 U/L (46-116); ALT/SGPT 67 U/L (7.0-40); AST/SGOT 62 U/L (<34); BILIRUBIN,TOTAL 1.3 MG/DL (0.3-1.2); BLOOD UREA NITROGEN 14 MG/DL (9-23); CARBON DIOXIDE LEVEL 32 MMOL/L (20-31); CHLORIDE LEVEL 97 MMOL/L (98-107); CHOLESTEROL LEVEL 178 MG/DL (<200); CHOLESTEROL RISK RATIO 5.25 (<5); CREATININE FOR GFR 0.62 MG/DL (0.70-1.30); GLOMERULAR FILTRATION RATE > 60.0 (>60); GLUCOSE, FASTING 92 MG/DL (60-100); HDL CHOLESTEROL 33.9 MG/DL (>40); LDL CHOLESTEROL 120.9 MG/DL (<100); NON-HDL-C 144 MG/DL; POTASSIUM SERUM 4.2 MMOL/L (3.5-5.1); SODIUM LEVEL 134 MMOL/L (136-145); TOTAL PROTEIN 7.3 G/DL (5.7-8.2); TRIGLYCERIDES LEVEL 116 MG/DL (<150)
[2022-11-26 20:11] LABS: HEMATOCRIT 47.9 % (42.0-52.0); HEMOGLOBIN 15.7 g/dl (13.5-17.5); MEAN CORPUSCULAR HEMOGLOBIN 29.9 pg (27.0-33.0); MEAN CORPUSCULAR HGB CONC 32.8 g/dl (32.0-36.5); MEAN CORPUSCULAR VOLUME 91.2 fl (80.0-96.0); PLATELET COUNT, AUTOMATED 118 10^3/uL (150-450); RED BLOOD COUNT 5.25 10^6/uL (4.30-6.10); WHITE BLOOD COUNT 6.9 10^3/uL (4.0-10.0)
[2022-11-26 20:14] LABS: HEPATITIS B SURFACE ANTIGEN NEGATIVE (NEGATIVE)
[2022-11-26 20:27] LABS: HIV 1&2 SCREEN CENTAUR NEGATIVE (NEGATIVE)
[2022-11-26 21:32] LABS: GC DNA AMPLIFICATION NEGATIVE (NEGATIVE)
[2022-11-30 09:01] LABS: HEPATITIS C VIRUS ABY INDEX > 11.0 INDEX (<0.8)
== END ==
LOC: M LABDRWAD 10:48
PROVIDERS: ATTEND Family Medicine
DX: F11.20 Opioid dependence, uncomplicated (principal)

== ENCOUNTER → 2022-12-17 | Outpatient (CLI) | payer OTHER | LOC: M LABDRWAD 10:50 | PROVIDERS: ATTEND Internal Medicine Infectious Disease | DX: B18.2 Chronic viral hepatitis C (principal) ==

== ENCOUNTER → 2023-05-19 | Outpatient (REF) | payer OTHER ==
[~2023-05-19] MED LIST changes: +BENZ0.5T2 PO; -BENZ0.5T23 PO; -DOXA2TAB3 PO; +DOXA2TAB61 PO; -GABA-283 PO; +GABA-284 PO
[2023-05-19 13:14] LABS: HEMOGLOBIN A1c 5.1 % (4.0-6.0)
[2023-05-19 13:33] LABS: ALBUMIN 3.8 G/DL (3.2-5.2); ALKALINE PHOSPHATASE 79 U/L (46-116); ALT/SGPT 42 U/L (7.0-40); AST/SGOT 21 U/L (<34); BILIRUBIN,TOTAL 0.3 MG/DL (0.3-1.2); BLOOD UREA NITROGEN 9 MG/DL (9-23); CALCIUM LEVEL 9.1 MG/DL (8.5-10.1); CARBON DIOXIDE LEVEL 29 MMOL/L (20-31); CHLORIDE LEVEL 102 MMOL/L (98-107); CREATININE FOR GFR 0.61 MG/DL (0.70-1.30); GLOMERULAR FILTRATION RATE > 60.0 (>60); GLUCOSE, FASTING 101 MG/DL (60-100); SODIUM LEVEL 139 MMOL/L (136-145); TOTAL PROTEIN 7.5 G/DL (5.7-8.2)
== END ==
LOC: M SFHCADAM 10:59
PROVIDERS: ATTEND Physician Assistant Medical
DX: E11.65 Type 2 diabetes mellitus with hyperglycemia (principal)

== ENCOUNTER → 2023-08-03 | Outpatient (REF) | payer OTHER ==
[~2023-08-03] MED LIST changes: -MIRT-62 PO; +MIRT-88 PO; +PEN-308 SC; -PEN1MIS21 SC
[2023-08-03 16:05] LABS: HEPATITIS B SURFACE ANTIBODY NEGATIVE (POSITIVE)
== END ==
LOC: M LABDRWAD 12:52
PROVIDERS: ATTEND Internal Medicine Infectious Disease
DX: B18.2 Chronic viral hepatitis C (principal)

== ENCOUNTER → 2023-08-03 | Outpatient (REF) | payer OTHER | LOC: M LAB REF 12:54 | PROVIDERS: ATTEND Family Medicine | DX: F16.20 Hallucinogen dependence, uncomplicated (principal) ==

== ENCOUNTER → 2023-08-04 | Outpatient (REF) | payer OTHER | LOC: M LABDRWAD 16:21 | PROVIDERS: ATTEND Family Medicine | DX: F11.20 Opioid dependence, uncomplicated (principal) | CPT/HCPCS: 36415; G0480 ==

== ENCOUNTER → 2023-09-12 | Outpatient (REF) | payer OTHER | LOC: M LABDRWAD 15:33 | PROVIDERS: ATTEND Family Medicine | DX: F11.20 Opioid dependence, uncomplicated (principal) | CPT/HCPCS: 36415; G0480 ==

== ENCOUNTER → 2023-09-12 | Outpatient (REF) | payer OTHER ==
[2023-09-12 16:18] LABS: BASO % 0.8 % (0.0-1.0); EOS # 0.3 10^3/uL (0.0-0.5); EOS % 4.7 % (0.0-3.0); HEMATOCRIT 44.1 % (42.0-52.0); HEMOGLOBIN 14.8 g/dl (13.5-17.5); LYMPH # 1.6 10^3/uL (1.5-5.0); LYMPH % 29.7 % (24.0-44.0); MEAN CORPUSCULAR HEMOGLOBIN 30.6 pg (27.0-33.0); MEAN CORPUSCULAR HGB CONC 33.6 g/dl (32.0-36.5); MEAN CORPUSCULAR VOLUME 91.3 fl (80.0-96.0); MONO # 0.4 10^3/uL (0.0-0.8); MONO % 7.4 % (2.0-8.0); NEUTROPHILS % 56.8 % (36.0-66.0); RED BLOOD COUNT 4.83 10^6/uL (4.30-6.10); WHITE BLOOD COUNT 5.3 10^3/uL (4.0-10.0)
[2023-09-12 16:22] LABS: PLATELET COUNT, AUTOMATED 129 10^3/uL (150-450)
== END ==
LOC: M SFHCADAM 13:03
PROVIDERS: ATTEND Family Medicine
DX: L98.9 Disorder of the skin and subcutaneous tissue, unspecified (principal)

== ENCOUNTER → 2023-09-13 | Outpatient (REF) | payer OTHER | LOC: M LABDRWAD 12:17 | PROVIDERS: ATTEND Family Medicine | DX: F11.20 Opioid dependence, uncomplicated (principal) ==

== ENCOUNTER → 2024-11-26 | Outpatient (REF) | payer OTHER ==
[~2024-11-26] MED LIST changes: +FLUO-365 PO; -FLUO20CA22 PO; +GABA-1172 PO; -GABA-282 PO; -MIRT-60 PO; +MIRT-89 PO; -OLAN20TA14 PO; +OLAN20TA53 PO; +RISP-105 PO; -RISP-7 PO; -RISP-8 PO; +RISP0.5T82 PO
[2024-11-26 18:17] LABS: BASO % 0.7 % (0.0-1.0); EOS # 0.2 10^3/uL (0.0-0.5); EOS % 3.2 % (0.0-3.0); LYMPH # 1.6 10^3/uL (1.5-5.0); LYMPH % 27.4 % (24.0-44.0); MEAN CORPUSCULAR HEMOGLOBIN 29.7 pg (27.0-33.0); MEAN CORPUSCULAR VOLUME 87.4 fl (80.0-96.0); MONO # 0.3 10^3/uL (0.0-0.8); MONO % 5.4 % (2.0-8.0); NEUTROPHILS # 3.5 10^3/uL (1.5-8.5); NEUTROPHILS % 62.2 % (36.0-66.0); RED BLOOD COUNT 5.38 10^6/uL (4.30-6.10); WHITE BLOOD COUNT 5.7 10^3/uL (4.0-10.0)
[2024-11-26 19:00] LABS: PLATELET COUNT, AUTOMATED 98 10^3/uL (150-450)
== END ==
LOC: M SFHCADAM 14:50
PROVIDERS: ATTEND Family Medicine
DX: R05.9 Cough, unspecified (principal)

== ENCOUNTER → 2024-11-26 | Outpatient (CLI) | payer OTHER | LOC: M ADAMS 14:52 | PROVIDERS: ATTEND Family Medicine | DX: R05.9 Cough, unspecified (principal) ==

== ENCOUNTER → 2024-12-25 | Outpatient (REF) | payer OTHER | LOC: M SFHCADAM 14:21 | PROVIDERS: ATTEND Family Medicine | DX: E11.69 Type 2 diabetes mellitus with other specified complication (principal) ==

== ENCOUNTER 2025-05-07 18:30 | Emergency (ER) | payer OTHER ==
[~2025-05-07] VITALS: Ht 162.6 cm; Wt 69.8 kg
[~2025-05-07 18:30] MED LIST changes: +PROZ10CA11 PO; -PROZ10CA7 PO; -PROZ20CA11 PO; +PROZ20CA12 PO
[2025-05-07 20:16] LABS: VENOUS BASE EXCESS 0.8 (-2.0-2.0); VENOUS HCO3 28.5 MMOL/L (23.0-27.0); VENOUS O2 SATURATION 86.2 % (60.0-80.0); VENOUS PARTIAL PRESSURE CO2 57.6 mmHg (38.0-50.0); VENOUS PARTIAL PRESSURE O2 52.3 mmHg (30.0-50.0); VENOUS PH 7.313 UNITS (7.330-7.430); VENOUS STANDARD HCO3 24.9 MMOL/L; VENOUS TOTAL CO2 30.3 MMOL/L (24.0-28.0)
[2025-05-07] MEDS: NS (Normal Saline) 0.9% 1,000 ML IV ONE ×2 (20:29→22:34)
[2025-05-07 20:46] LABS: KETONE, URINE AUTO RFX NEGATIVE (NEGATIVE); LEUKOCYTE ESTERASE UR AUTO RFX NEGATIVE (NEGATIVE); NITRITE, URINE AUTO RFX NEGATIVE (NEGATIVE); RBC, URINE AUTO RFX 0 /HPF (0-3); SQUAM EPITHELIAL CELL UR AURFX 0 /HPF (0-6); WBC, URINE AUTO RFX 0 /HPF (0-3)
[2025-05-07 20:53] LABS: CK-MB VALUE MASS < 1.0 NG/ML (<3.6)
[2025-05-07 20:54] LABS: ETHYL ALCOHOL (ETHANOL) < 0.003 % (0.000-0.010)
[2025-05-07 20:55] LABS: CPK CREATINE PHOSPHOKINASE 25 U/L (46-171)
[2025-05-07 21:03] LABS: BARBITURATES URINE NEGATIVE (NEGATIVE); BENZODIAZEPINES URINE NEGATIVE (NEGATIVE); COCAINE METABOLITE URINE NEGATIVE (NEGATIVE); OPIATES URINE NEGATIVE (NEGATIVE)
[2025-05-07 21:04] LABS: CANNABINOIDS URINE NEGATIVE (NEGATIVE); PHENCYCLIDINE URINE NEGATIVE (NEGATIVE)
[2025-05-07 21:04] LABS: BASO # 0.0 10^3/uL (0.0-0.2); BASO % 0.4 % (0.0-1.0); EOS # 0.2 10^3/uL (0.0-0.5); EOS % 3.1 % (0.0-3.0); LYMPH # 1.1 10^3/uL (1.5-5.0); LYMPH % 23.4 % (24.0-44.0); MONO # 0.3 10^3/uL (0.0-0.8); MONO % 6.3 % (2.0-8.0); NEUTROPHILS # 3.1 10^3/uL (1.5-8.5); NEUTROPHILS % 65.3 % (36.0-66.0)
[2025-05-07 21:07] LABS: AMPHETAMINES LEVEL URINE POSITIVE (NEGATIVE); METHADONE URINE POSITIVE (NEGATIVE)
[2025-05-07 21:12] LABS: ALT/SGPT 50 U/L (7.0-40); AST/SGOT 34 U/L (<34); CALCIUM LEVEL 9.0 MG/DL (8.5-10.1); CARBON DIOXIDE LEVEL 30 MMOL/L (20-31); CHLORIDE LEVEL 91 MMOL/L (98-107); CREATININE FOR GFR 0.51 MG/DL (0.70-1.30); GLOMERULAR FILTRATION RATE > 90.0 (>60); MAGNESIUM LEVEL 1.8 MG/DL (1.8-2.4); PHOSPHORUS LEVEL 4.9 MG/DL (2.5-4.9); POTASSIUM SERUM 4.4 MMOL/L (3.5-5.1); SODIUM LEVEL 132 MMOL/L (136-145)
[2025-05-07 21:17] LABS: OSMOLALITY SERUM 319 MOSM/KG (275-295)
[2025-05-07 21:26] LABS: PLATELET COUNT, AUTOMATED 97 10^3/uL (150-450)
[2025-05-07 22:00] LABS: ACETONE/KETONE 0.11 MMOL/L (0.02-0.27)
[2025-05-07] MEDS: HumuLIN R (REGULAR) INSULIN (NovoLIN R) **100 U/ML** PER UNIT IV ONE (22:35)
[2025-05-07] MEDS: KCL 10MEQ/100ML SWI (KRUN) 10 MEQ in IV 1 EA IV SCH (22:36)
[2025-05-07] MEDS ORDERED: MED REC IN PROGRESS XX SCH (23:40)
[2025-05-08 03:59] VITALS: BP 111/74; TEMP 97.1; O2SAT 95
== END 2025-05-08 04:06 | disposition home or self-care (01) ==
LOC: M ED 18:30
DX: E11.65 Type 2 diabetes mellitus with hyperglycemia (principal); I10 Essential (primary) hypertension; B19.20 Unspecified viral hepatitis C without hepatic coma; G47.30 Sleep apnea, unspecified; F41.9 Anxiety disorder, unspecified; F17.200 Nicotine dependence, unspecified, uncomplicated; F19.10 Other psychoactive substance abuse, uncomplicated; F10.10 Alcohol abuse, uncomplicated; Z88.8 Allergy status to other drugs, medicaments and biological substances; Z79.4 Long term (current) use of insulin; Z79.899 Other long term (current) drug therapy
CPT/HCPCS: 36415; 71045; 80048; 80053; 80076; 80307; 81001; 82010; 82077; 82550; 82553; 82803; 83036; 83690; 83735; 83930; 84100; 84484; 85025; 85049; 85055; 87040; 87077; 87154; 87186; 93005; 93041; 94760; 96361; 96365; 96366; 99285; J1815

== ENCOUNTER → 2025-05-28 | Outpatient (REF) | payer OTHER ==
[2025-05-28 17:43] LABS: MALB URINE SIEMENS 11.0 MG/L
[2025-05-28 17:44] LABS: CREATININE, URINE 129.2 MG/DL; MAU/CREAT RATIO 8.5 MCG/MG (0.0-30.0)
== END ==
LOC: M SFHCADAM 14:33
PROVIDERS: ATTEND Family Medicine
DX: E11.65 Type 2 diabetes mellitus with hyperglycemia (principal)

== ENCOUNTER → 2025-05-28 | Outpatient (CLI) | payer OTHER | LOC: M ADAMS 14:42 | PROVIDERS: ATTEND Family Medicine | DX: R05.1 Acute cough (principal) ==